=== PATIENT | female | born 1940 | race African-American/Black ===

== ENCOUNTER 2017-10-09 15:52 | Emergency (ER) | payer MEDICARE, MEDICAID ==
[2017-10-09 17:29] LABS: Bilirubin Negative (Negative); Blood, Urine Negative (Negative); Glucose, Urine (Dipstick) Negative (Negative); Ketone, Urine Negative (Negative); Nitrite Negative (Negative); Protein, Urine (Dipstick) Negative (Neg-Trace)
[2017-10-09] MEDS ORDERED: traMADol HCl 50 MG TAB ONE (18:25)
== END 2017-10-09 18:29 | disposition home or self-care (01) ==
LOC: EEVIPCON 15:52 → ERS 15:52
DX: M54.5 Low back pain (principal); I25.10 Atherosclerotic heart disease of native coronary artery without angina pectoris; E78.5 Hyperlipidemia, unspecified; I10 Essential (primary) hypertension; I49.9 Cardiac arrhythmia, unspecified; F32.9 Major depressive disorder, single episode, unspecified; F17.220 Nicotine dependence, chewing tobacco, uncomplicated; Z79.899 Other long term (current) drug therapy; Z79.82 Long term (current) use of aspirin
CPT/HCPCS: 81003; 99283

== ENCOUNTER 2018-02-26 12:00 | Outpatient (CLI) | payer MEDICARE, MEDICAID | END 2018-02-26 12:01 | disposition home or self-care (01) | LOC: BICULT 12:00 | PROVIDERS: ATTEND Urology | DX: N20.0 Calculus of kidney (principal); N28.1 Cyst of kidney, acquired | CPT/HCPCS: 74018; 76770 ==

== ENCOUNTER 2018-05-10 11:36 | Inpatient (IN) | payer MEDICARE, MEDICAID ==
[2018-05-10 12:38] LABS: #Basophils 0.1 thou/uL (0.0-0.2); #Eosinphils 0.1 thou/uL (0.0-0.7); #Lymphocytes 1.9 thou/uL (1.20-3.40); #Monocytes 0.4 thou/uL (0.11-0.59); #Neutrophils 2.1 thou/uL (1.40-6.50); %Basophils 1.1 % (0.0-1.0); %Eosinophils 2.1 % (0.0-10.0); %Monocytes 8.7 % (0.0-10.0); %Neutrophils 46.1 % (42.0-75.0); Hemoglobin 12.3 g/dL (12.0-16.0); Mean Corpuscular HGB CONC 33.4 g/dL (32.0-36.0); Mean Corpuscular Hemoglobin 30.4 pg (27.0-31.0); Mean Platelet Volume 7.6 fL (7.4-10.4); Platelet Count 220 thou/uL (130-400); RBC Distribution Width 12.1 % (11.5-14.5); Red Blood Cell (RBC) Count 4.04 mill/uL (4.20-5.40); White Blood Cell (WBC) Count 4.6 thou/uL (4.8-10.8)
[2018-05-10 12:56] LABS: ALT (SGPT) 16 U/L (8-55); AST (SGOT) 21 U/L (5-34); Albumin 4.2 g/dL (3.4-4.8); Alkaline Phosphatase 56 U/L (40-150); Anion Gap 13 mmol/L (10-20); BUN (Urea Nitrogen) 17 mg/dL (9.8-20.1); Bilirubin, Total 0.6 mg/dL (0.2-1.2); CK (CPK) 164 U/L (29-168); Calc. Creatinine Clearance 0 mL/min (70-130); Calcium 9.2 mg/dL (7.8-10.44); Carbon Dioxide 21 mmol/L (23-31); Chloride 109 mmol/L (98-107); Estimated GFR-MDRD 63; Globulin 3.1 g/dL (2.4-3.5); Glucose 119 mg/dL (83-110); Potassium 4.1 mmol/L (3.5-5.1); Protein, Total 7.3 g/dL (6.0-8.3); Sodium 139 mmol/L (136-145)
--- NOTE | 2018-05-10 12:56 | RAD ---
PORTABLE CHEST: History: Weakness. Comparison: 09-12-16 FINDINGS: Defibrillator head obscures the left chest. The heart is upper normal size. Vascular markings are mil dly prominent. Evidence of atelectasis in the lung bases. I cannot exclude small effusions. The upper lung gamboa are clear. POS: H
[2018-05-10 13:01] LABS: CKMB 1.7 ng/mL (0-6.6); Troponin I Less than 0.010 ng/mL (< 0.028)
[2018-05-10] MEDS ORDERED: Atropine Sulfate 1 mg/10 ml Syringe ONE (14:40)
[2018-05-10 15:11] LABS: Bilirubin Negative (Negative); Blood, Urine Negative (Negative); Clarity CLEAR (Clear); Glucose, Urine (Dipstick) Negative (Negative); Leukocyte Moderate (Negative); Nitrite Negative (Negative); Protein, Urine (Dipstick) Negative (Neg-Trace); pH, Urine 5.5 (5.0-9.0)
[2018-05-10 15:13] LABS: Bacteria/HPF None Seen HPF (None Seen); Hyaline Casts/LPF 4-6 HYALINE CAST LPF (0-3 Hyaline); Pathc Cast-AUWi Flag 0.43 (0-2.49); RBC/HPF 0-3 HPF (0-3); Squamous Epithelial 0-3 HPF (0-3)
[2018-05-10 15:57] LABS: Troponin I 0.012 ng/mL (< 0.028)
--- NOTE | 2018-05-10 17:15 | HP ---
PRIMARY CARE PROVIDER: Dr. Mari Ornelas. CHIEF COMPLAINT: Referred to [facility] Service by [place] [facility] for weakne ss and bradycardia. HISTORY OF PRESENT ILLNESS: Patient complains of woozy spells, weakness, sleeping a lot, cramps in h er legs at night, has some nausea at the top of her stomach. No emesis. No abdominal pain. PAST MEDICAL HISTORY: Pertinent for chronic sinus bradycardia, coronary artery disease post-PCI, hyp ertension, elevated cholesterol. CURRENT MEDICATIONS: Reviewed. Lisinopril 20 mg twice a day, amlodipine 10 mg a day, Zetia 10 mg a day, amitriptyline 25 mg a day, aspirin 81 mg a day, Lipitor 80 mg a day. ALLERGIES: To MORPHINE, it "shuts my body down." PAST SURGICAL HISTORY: Tubal ligation. FAMILY HISTORY: Sister of an [place]. She has another sister with coronary artery disease, history of stroke, diabetes. She has an aunt and a sister with diabetes. SOCIAL HISTORY: Single. FULL CODE status. Son, Roberto Glover is next of kin. Nonsmoker, nonalcoho l drinker. REVIEW OF SYSTEMS: General: No headaches, fainting. She has wooziness with her weak spells. Eyes: Blurred vision at times. No double vision, flashing lights. ENT: No ear pain or drainage. No na anibal bleeding. No trouble swallowing. Cardiac: No chest pain, orthopnea or paroxysmal nocturnal dys pnea. Respiratory: No cough, wheezing or asthma. Gastrointestinal: See present illness. Genitour inary: No hematuria, dysuria. Musculoskeletal: No pain or swelling in arms or legs. Neurologic: No strokes, seizures or focal weakness. Psychiatric: No anxiety, depression. Skin: No bruises, bl eeding or rash. Heme/Lymph: No tender or swollen lymph nodes in axilla, inguinal or cervical area. PHYSICAL EXAMINATION: GENERAL: She is alert, oriented, cooperative lady. VITAL SIGNS: Blood pressure 179/76, pulse 67, respirations 16, temperature 98.7, O2 sat 96% on room air. HEENT: Reveals bilateral arcus. Pupils equal, round, and reactive. Extraocular movements intact. Sclerae white. Tympanic membranes clear. Nose is clear. Oral mucous membranes are wet with no lesi ons. NECK: No jugular venous distention, adenopathy or thyromegaly. CHEST: Clear to auscultation and percussion. HEART: Regular rate and rhythm. First and second heart sounds are clear. There are no appreciated murmurs or gallops. ABDOMEN: Soft, bowel sounds are normal. There is no hepatosplenomegaly, no mass, no rebound, no bru its. EXTREMITIES: Reveal no cyanosis, clubbing or edema. PULSES: Carotid, radial, femoral, and dorsalis pedis pulses intact and symmetric. SKIN: Warm and dry without bruises or rash. HEME/LYMPH: No tender or swollen lymph nodes in axilla, inguinal or cervical areas. NEUROLOGICAL: Cranial nerves II through XII are intact. Deep tendon reflexes symmetric. Moves all extremities. Toes downgoing. X-RAY FINDINGS: Chest x-ray shows no cardiomegaly, CHF, infiltrate, reviewed by me. EKG showed sinu s bradycardia, left axis deviation, diffuse T-wave abnormality, reviewed by me. LABORATORY DATA: Hemoglobin 12.3, white count 4.6, platelet count 220,000. Comprehensive metabolic profile is normal except for blood sugar of 119, CO2 of 21, chloride of 109. Cardiac enzymes, normal x2. BNP 85.6. ADMITTING DIAGNOSES: 1. Generalized weakness. 2. Sinus bradycardia, chronic, has been worked up extensively by [facility]. 3. Epigastric discomfort, nausea. 4. Hypertension. 5. Coronary artery disease, post percutaneous coronary intervention. PLAN: 1. Monitor. 2. Serial enzymes. If enzymes are negative, it is noted that less than 2 years ago she had normal s tress test. We will obtain cortisol level, supine and erect blood pressures, thyroid profile, hemogl obin A1c, reevaluate when data available.
[2018-05-10] MEDS ORDERED: Sodium Chloride 0.9% 1,000 ML IV SCH (17:20)
[2018-05-10] MEDS ORDERED: Zolpidem Tartrate 5 MG TAB PO PRN (17:41)
[2018-05-10] MEDS ORDERED: Ondansetron ODT 4 MG TAB PO PRN (17:41)
[2018-05-10 18:33] LABS: Hemoglobin A1c 6.5 % (4.0-6.0)
[2018-05-10 18:55] LABS: Troponin I 0.014 ng/mL (< 0.028)
[2018-05-10 19:10] LABS: Free Thyroxine Index 2.12 (1.4-3.1); T4 8.1 ug/dL (4.87-11.72); Thyroid Stimulating Hormone 0.6708 uIU/mL (0.35-4.94)
[2018-05-10] MEDS ORDERED: Prevnar 13-Val Conj/PF 0.5 ML SYRINGE IM ONE (21:00)
[2018-05-11 05:28] LABS: #Basophils 0.1 thou/uL (0.0-0.2); #Eosinphils 0.2 thou/uL (0.0-0.7); #Lymphocytes 1.7 thou/uL (1.20-3.40); #Monocytes 0.5 thou/uL (0.11-0.59); #Neutrophils 2.9 thou/uL (1.40-6.50); %Eosinophils 2.9 % (0.0-10.0); %Lymphocytes 32.2 % (21.0-51.0); %Monocytes 9.5 % (0.0-10.0); %Neutrophils 54.5 % (42.0-75.0); Hemoglobin 12.1 g/dL (12.0-16.0); Mean Corpuscular HGB CONC 32.5 g/dL (32.0-36.0); Mean Corpuscular Hemoglobin 29.4 pg (27.0-31.0); Mean Corpuscular Volume 90.3 fL (78.0-98.0); Mean Platelet Volume 7.5 fL (7.4-10.4); Platelet Count 239 thou/uL (130-400); White Blood Cell (WBC) Count 5.4 thou/uL (4.8-10.8)
[2018-05-11 06:03] LABS: Anion Gap 12 mmol/L (10-20); BUN (Urea Nitrogen) 16 mg/dL (9.8-20.1); Calc. Creatinine Clearance 58 mL/min (70-130); Calcium 9.2 mg/dL (7.8-10.44); Carbon Dioxide 24 mmol/L (23-31); Chloride 109 mmol/L (98-107); Estimated GFR-MDRD 72; Glucose 105 mg/dL (83-110); Potassium 3.8 mmol/L (3.5-5.1); Sodium 141 mmol/L (136-145)
--- NOTE | 2018-05-11 14:13 | PDOC.PN ---
- Subjective Encounter Start Date: 05/11/18 Encounter Start Time: 14:11 Subjective: generalized weakness - Objective Resuscitation Status: Resuscitation Status FULL:Full Resuscitation MAR Reviewed: Yes Vital Signs & Weight: Vital Signs (12 hours) Temp Pulse Resp BP BP Pulse Ox 05/11/18 11:10 98.6 F 41 L 20 169/74 H 99 05/11/18 09:39 98.3 F 41 L 20 05/11/18 07:55 98.3 F 41 L 20 115/62 95 05/11/18 03:35 35 L 18 122/60 I&O: 05/10/18 05/11/18 05/12/18 06:59 06:59 06:59 Intake Total 150 Balance 150 Result Diagrams: 05/11/18 05:03 05/11/18 05:03 Phys Exam - Physical Examination Neck: no JVD Respiratory: clear to auscultation bilateral Cardiovascular: RRR bradycardia Gastrointestinal: soft, positive bowel sounds Musculoskeletal: no edema Dx/Plan (1) Weakness Code(s): R53.1 - WEAKNESS Status: Acute (2) CAD (coronary artery disease) Code(s): I25.10 - ATHSCL HEART DISEASE OF [place] CORONARY ARTERY W/O ANG PCTRS Status: Acute Qualifiers: Coronary Disease-Associated Artery/Lesion type: [place] artery [place] vs. transplanted heart: [place] heart Associated angina: without angina Qualified Code(s): I25.10 - Atherosclerotic heart disease of [place] coronary artery without angina pectoris (3) HTN (hypertension) Code(s): I10 - ESSENTIAL (PRIMARY) HYPERTENSION Status: Chronic Qualifiers: Hypertension type: essential hypertension Qualified Code(s): I10 - Essential (primary) hypertension (4) Dyslipidemia Code(s): E78.5 - HYPERLIPIDEMIA, UNSPECIFIED Status: Chronic (5) Chest discomfort Code(s): R07.89 - OTHER CHEST PAIN Status: Acute - Plan stress test cancelled by cardiology -: acosta FOR ANEMIA, HYPOTHYROID, HYPOADRENAL , ORTHSTATIC HYPOTENSION ALL -: wnl -: CArdiology consult * .
--- NOTE | 2018-05-11 15:57 | NM ---
NUCLEAR MEDICINE MYOCARDIAL PERFUSION: Date: 05/11/18 CLINICAL HISTORY: 78-year-old female with chest pain and weakness. The stress imaging portion of the exam was cancelled by the ordering physician due to bradycardia. Re st imaging performed. RADIOPHARMACEUTICAL: 9.3 mCi technetium-99m sestamibi IV. FINDINGS: Rest imaging does not reveal a significant perfusion defect of the left ventricular siddiqi. There is m ild prominence in volume of the left ventricle. Gated imaging not performed. IMPRESSION: 1. No significant perfusion defect of the left ventricular siddiqi by rest imaging. 2. There is mild prominence in size of the left ventricle. Consider correlation with echocardiogram for further dynamic evaluation. POS: MEGAN
--- NOTE | 2018-05-11 17:24 | PDOC.EVN ---
Event Note - Event Note Event Note: cardiology rec pacemaker, change to full admit
--- NOTE | 2018-05-11 19:05 | CON ---
DATE OF CONSULTATION: 05/11/2018 PRIMARY DIRECTOR OF INCOME TAX: Dr. Kosta Guallpa. REASON FOR CONSULTATION: Bradycardia. HISTORY OF PRESENT ILLNESS: Mrs. Portillo is a very pleasant 78-year-old - [place] female followed by Dr. Guallpa for many years now, who comes to the hospital for not feeling well. She is noted that for the last week or two she has noticed episodes of feeling lightheaded, feeling weak all the time, feeling like she needs to take a nap and she is sleeping much more than before. She decided to come in for evaluation of this to her primary care doctor, who saw her and recommended she come into the hospital for further care. Here, she had blood work and eventually was admitted on the division plant engineer, which found that she had a sinus bradycardia, heart rates as low as 32 while she was awake, so Cardiology is being consulted for this. On my evaluation, Mrs. Portillo feels much better. Her heart rate currently in the 60s. She is sitting up, talking with a friend. She tells me that she thinks most of her problems are related to medication. She had started by PCP about 1-2 weeks ago, this correlated with the timing of her feeling this way, she decided to take herself off of this on Thursday and has not had it since then and she states that she is feeling much better since then. PAST MEDICAL HISTORY: 1. Sinus bradycardia, which is chronic on her and has been worked up in the past. 2. Coronary artery disease. 3. PCI in the distant past about 10 years ago. 4. Hypertension. 5. Hyperlipidemia. OUTPATIENT MEDICATIONS: 1. Lisinopril 20 mg b.i.d. 2. Amlodipine 10 mg. 3. Zetia 10 mg a day. 4. Amitriptyline 25 mg a day. 5. Aspirin 81 a day. 6. Lipitor 80 mg a day. ALLERGIES: MORPHINE. PAST SURGICAL HISTORY: Tubal ligation. FAMILY HISTORY: Sister of an [place], has another sister with coronary disease , stroke, and diabetes. SOCIAL HISTORY: No alcohol, tobacco, or drugs. REVIEW OF SYSTEMS: A 12-point review of systems is done and it is all negative except as stated in the history of present illness. PHYSICAL EXAMINATION: VITAL SIGNS: Temperature 98.1, pulse anywhere from 32-50. Respiratory rate 12 , satting 95% on room air, blood pressure 166/71. GENERAL: Awake, alert, oriented x3, in no distress. HEENT: Normocephalic, atraumatic. NECK: Supple. LUNGS: Clear. CARDIOVASCULAR: S1, S2. Heart rate in the 40s. No murmurs or rubs. ABDOMEN: Soft, positive bowel sounds. EXTREMITIES: No edema. SKIN: Warm and dry. LABORATORY WORK: Reviewed. White count 4.6, hemoglobin 12.3, hematocrit 36, platelet count 220. Chemistry was unremarkable except for chloride of 109, otherwise unremarkable. Hemoglobin A1c of 6.5. Troponin I is negative x3. Free T4-T3 uptake and TSH are all normal. Cortisol level was normal. UA with moderate leukocyte esterase, 4-6 white cells, otherwise unremarkable. Chest x-ray showed clear lung gamboa, because exclude small effusions to atelectasis in the lung bases. Resting nuclear cardiac scan showed no significant perfusion defect and resting images, mild prominence in size of the left ventricle, but normal function. ASSESSMENT AND PLAN: 1. Sinus bradycardia: Likely symptomatic bradycardia. She has had episodes of junctional rhythm as well as just sinus bradycardia in the low 30s, down to 32. Her symptoms could certainly be related to this bradycardia, however, she is not feeling it while she is here at the time. She has felt better since she stopped that medication. Currently, I think she has an indication for pacemaker placement as her symptoms may correlate with bradycardia and she has significant low heart rates. She would like to have Dr. Guallpa's opinion on this as he has known her for many years now, I think this is appropriate. 2. Further recommendations per her primary bevel mill operator, Dr. Guallpa will see her in the morning. [facility], [place]
[2018-05-11] MEDS ORDERED: Non-Formulary Item 1 EACH (Atorvastatin Calcium [Atorvastatin Calcium] 80 MG) PO SCH (21:00)
[2018-05-11] MEDS ORDERED: Sodium Chloride 0.9% 10 ML ONE (21:48)
[2018-05-11] MEDS: Ezetimibe 10 MG TAB PO SCH (22:21)
[2018-05-11] MEDS: Atorvastatin Calcium 40 MG TAB PO SCH (22:21)
[2018-05-11] MEDS: Fish Oil 1,000 MG CAP PO SCH (22:21)
[2018-05-12] MEDS ORDERED: Sodium Chloride 0.9% 10 ML ONE (08:20)
[2018-05-12] MEDS: Lisinopril 20 MG TAB PO SCH (09:33)
[2018-05-12] MEDS: Fish Oil 1,000 MG CAP PO SCH ×2 (09:34→22:20)
[2018-05-12] MEDS: Amitriptyline HCl 25 MG TAB PO SCH (09:34)
[2018-05-12] MEDS: Amlodipine 10 MG TAB PO SCH (09:34)
--- NOTE | 2018-05-12 10:02 | PDOC.PN ---
- Subjective Encounter Start Date: 05/12/18 Encounter Start Time: 10:01 Subjective: just weak - Objective MAR Reviewed: Yes Vital Signs & Weight: Vital Signs (12 hours) Temp Pulse Resp BP BP BP BP 05/12/18 09:34 51 L 159/67 H 05/12/18 09:33 159/67 H 05/12/18 08:00 97.6 F 51 L 16 159/67 H 174/82 H 05/12/18 04:04 56 L 108/65 05/12/18 04:02 42 L 124/65 05/12/18 03:58 98.5 F 36 L 16 05/11/18 22:23 BP Pulse Ox 05/12/18 09:34 05/12/18 09:33 05/12/18 08:00 05/12/18 04:04 05/12/18 04:02 05/12/18 03:58 138/65 92 L 05/11/18 22:23 93 L Weight Weight 154 lb 14.4 oz I&O: 05/11/18 05/12/18 05/13/18 06:59 06:59 06:59 Intake Total 1030 Output Total 1000 Balance 30 Result Diagrams: 05/11/18 05:03 05/11/18 05:03 Phys Exam - Physical Examination Neck: no JVD Respiratory: clear to auscultation bilateral Cardiovascular: RRR slow Gastrointestinal: soft, positive bowel sounds Musculoskeletal: no edema Dx/Plan (1) Weakness Code(s): R53.1 - WEAKNESS Status: Acute (2) CAD (coronary artery disease) Code(s): I25.10 - ATHSCL HEART DISEASE OF [place] CORONARY ARTERY W/O ANG PCTRS Status: Acute Qualifiers: Coronary Disease-Associated Artery/Lesion type: [place] artery [place] vs. transplanted heart: [place] heart Associated angina: without angina Qualified Code(s): I25.10 - Atherosclerotic heart disease of [place] coronary artery without angina pectoris (3) HTN (hypertension) Code(s): I10 - ESSENTIAL (PRIMARY) HYPERTENSION Status: Chronic Qualifiers: Hypertension type: essential hypertension Qualified Code(s): I10 - Essential (primary) hypertension (4) Dyslipidemia Code(s): E78.5 - HYPERLIPIDEMIA, UNSPECIFIED Status: Chronic (5) Chest discomfort Code(s): R07.89 - OTHER CHEST PAIN Status: Acute - Plan pacemaker today * .
[2018-05-12] MEDS ORDERED: Iopamidol 370 76% 50 ML VIAL FS ONE (10:06)
[2018-05-12 12:10] LABS: #Basophils 0.1 thou/uL (0.0-0.2); #Eosinphils 0.1 thou/uL (0.0-0.7); #Lymphocytes 1.8 thou/uL (1.20-3.40); #Monocytes 0.3 thou/uL (0.11-0.59); %Eosinophils 2.2 % (0.0-10.0); %Lymphocytes 42.1 % (21.0-51.0); %Monocytes 7.5 % (0.0-10.0); %Neutrophils 46.3 % (42.0-75.0); Hemoglobin 11.9 g/dL (12.0-16.0); Mean Corpuscular HGB CONC 32.7 g/dL (32.0-36.0); Mean Corpuscular Hemoglobin 29.5 pg (27.0-31.0); Mean Corpuscular Volume 90.3 fL (78.0-98.0); Mean Platelet Volume 7.6 fL (7.4-10.4); Platelet Count 232 thou/uL (130-400); Red Blood Cell (RBC) Count 4.02 mill/uL (4.20-5.40); White Blood Cell (WBC) Count 4.3 thou/uL (4.8-10.8)
[2018-05-12 12:23] LABS: INR-International Normal Ratio 1.1; PTT 29.6 SEC (22.9-36.1); Prothrombin Time 14.5 SEC (12.0-14.7)
[2018-05-12 12:24] LABS: Anion Gap 13 mmol/L (10-20); BUN (Urea Nitrogen) 15 mg/dL (9.8-20.1); Calc. Creatinine Clearance 62 mL/min (70-130); Carbon Dioxide 23 mmol/L (23-31); Chloride 107 mmol/L (98-107); Estimated GFR-MDRD 80; Glucose 104 mg/dL (83-110); Potassium 3.5 mmol/L (3.5-5.1); Sodium 139 mmol/L (136-145)
[2018-05-12] MEDS ORDERED: CEFAZOLIN/Water 2 GM/20 ML SYRINGE ONE (15:41)
--- NOTE | 2018-05-12 15:42 | EKG ---
Test Reason : PREOP Blood Pressure : / mmHG Vent. Rate : 040 BPM Atrial Rate : 040 BPM P-R Int : 172 ms QRS Dur : 094 ms QT Int : 534 ms P-R-T Axes : 062 -39 088 degrees QTc Int : 435 ms Marked sinus bradycardia with occasional Premature ventricular complexes Left axis deviation T wave abnormality, consider anterolateral ischemia Abnormal ECG When compared with ECG of 10-MAY-2018 12:10, (Unconfirmed) Premature ventricular complexes are now Present T wave inversion now evident in Anterior leads Confirmed by VIVIAN BLANKENSHIP, DR. Valdez ([id number]) on 05/12/2018 3:42:21 PM Referred By: [facility] Confirmed By:DR. Courtney PARK MD
[2018-05-12] MEDS ORDERED: Fentanyl 100 MCG/2 ML VIAL ONE (15:48)
[2018-05-12] MEDS ORDERED: Midazolam HCl 2 mg/2 ml Vial ONE (15:48)
[2018-05-12] MEDS ORDERED: Lidocaine 1% (PF) 30 ML VIAL ONE (16:24)
[2018-05-12] MEDS: Atorvastatin Calcium 40 MG TAB PO SCH (22:20)
[2018-05-12] MEDS: Ezetimibe 10 MG TAB PO SCH (22:20)
[2018-05-12] MEDS: Acetaminophen 325 MG TAB PO PRN (22:21)
--- NOTE | 2018-05-12 22:36 | CON ---
DATE OF CONSULTATION: 05/12/2018 REFERRING PHYSICIAN: Kosta Guallpa M.D. REASON FOR CONSULTATION: Sick sinus syndrome and symptomatic bradycardia. HISTORY OF PRESENT ILLNESS: Ms. Portillo is a very pleasant 78-year-old -[place] woman known a nd followed by Dr. Guallpa for many years. She came to [facility] on 05/10/2018 with a chi ef complaint of symptomatic bradycardia. She is noticed over the past week or two that she is having episodes of lightheadedness, dizziness, weakness, and decreased energy levels with taking naps more frequently than before. She is persistently sleepy. She went to her primary care doctor for evaluat ion who saw her and recommended she go to the hospital for further evaluation. Upon admission, she h as blood work done and was admitted to telemetry when she was found to be in sinus bradycardia with r ates as low as 32 beats per minute with correlating worsening of symptoms. Her bradycardia is chroni c and has been worked up in the past. It has not been related to medication management and she has b een largely asymptomatic up until recently. Currently, she is feeling well. She denies any heart racing, palpitations, chest pain, pressure, syn cope or stroke-like symptoms. She does have occasional dizziness or near syncope on occasion. REVIEW OF SYSTEMS: Twelve-point review of systems was conducted and is negative except that listed a jermaine in the HPI. PAST MEDICAL HISTORY: 1. Sinus bradycardia, chronic and previously asymptomatic. 2. Coronary artery disease with PCI in the remote past approximately 10 years ago. 3. Hypertension. 4. Hyperlipidemia. ALLERGIES: MORPHINE. MEDICATIONS: Include lisinopril 20 mg b.i.d., amlodipine 10 mg daily, Zetia 10 mg daily, amitriptyli ne 25 mg daily, aspirin 81 mg daily, and Lipitor 80 mg daily. FAMILY HISTORY: Sister from an [place]. Second sister with coronary artery disease, stroke, and diabetes. SOCIAL HISTORY: Negative for alcohol, tobacco, or illicit drug use. PHYSICAL EXAMINATION: VITAL SIGNS: Most recent vital signs include 97.6, heart rate 51, blood pressure 159/67, respiration s are 16, and oxygen is 97% on room air. GENERAL: This is a well-appearing and well-nourished woman. She is alert and oriented. Speech is c lear and affect is appropriate. She is normocephalic, atraumatic. Sclerae are anicteric and EOMs ar e intact. NECK: Supple without jugular venous distention. Her thyroid is nonpalpable. CHEST: Clear to auscultation bilaterally without wheezes, crackles, or rhonchi. Respirations are ev en and unlabored with good bilateral excursion. CARDIOVASCULAR: Heart rate is regularly regular but slow. PMI is nondisplaced. There are no obviou s murmurs or rubs appreciated. Her extremities are warm and dry to touch without clubbing, cyanosis, or edema. ABDOMEN: Soft, nontender without palpable masses and hepatojugular reflex is negative. NEUROLOGIC: Grossly intact and nonfocal. Her gait was not assessed. DATABASE: Review of EKG and telemetry tracing reveals largely sinus bradycardia and occasional junct ional escape beat with heart rates as low as 32 beats per minute. LABORATORY DATA: WBC 4.3, hemoglobin 11.9, hematocrit 36.3, platelet count is 232, potassium 3.5, cr eatinine 0.84, free T4 2.12, thyroxine 8.1, T3 is 26. TSH is 0.6708, cortisol is 9.5. IMPRESSION: 1. Sick sinus syndrome, symptomatic bradycardia. 2. Junctional escape beats in the setting of extreme bradycardia. RECOMMENDATIONS: Given her sinus bradycardia is now progressed to severe bradycardia which she has a correlation of symptoms of dizziness, lightheadedness, and low energy levels. She does qualify for implantation of the pacemaker. We discussed pacemaker implantation with her including the risks, maria teresa efits, and alternatives. Risks include pain, swelling, bruising, infection at the insertion site, da mage to surrounding tissues, organs, or blood vessels including damage to the lung and damage to the heart requiring chest tube insertion or possibly invasive cardiovascular surgery. She voices underst anding and agrees with the plan of care to move forward with dual chamber pacemaker. This will be do ne at the earliest convenience. All questions were answered. Thank you for allowing us to participate in the care of this patient. This is dictated as scribe for Dr. Jamin Carmona.
[2018-05-13] MEDS ORDERED: Acetaminophen/Codeine 30-300mg Tablet PO PRN (07:36)
--- NOTE | 2018-05-13 08:32 | RAD ---
FRONTAL VIEW CHEST: INDICATION: Heart disease, pacemaker. FINDINGS: There is prominence of the cardiac silhouette. A left subclavian transvenous cardiac pacing device i s present. There are extrinsic artifacts overlying the leads which limit visualization. Elevation o f the right hemidiaphragm with adjacent basilar density is seen. There is no pneumothorax. No new c onsolidation. Interval improved edema from prior exam. IMPRESSION: 1. Mild patchy right basilar opacity indicating atelectasis. 2. Improving edema suggested. POS: MEGAN
[2018-05-13] MEDS ORDERED: Sodium Chloride 0.9% 10 ML ONE (09:07)
[2018-05-13] MEDS: Acetaminophen 325 MG TAB PO PRN (09:13)
[2018-05-13] MEDS: Lisinopril 20 MG TAB PO SCH (09:14)
[2018-05-13] MEDS: Amitriptyline HCl 25 MG TAB PO SCH (09:15)
[2018-05-13] MEDS: Amlodipine 10 MG TAB PO SCH (09:15)
[2018-05-13] MEDS: Fish Oil 1,000 MG CAP PO SCH ×2 (09:16→21:26)
[2018-05-13] MEDS: Cephalexin 250 MG CAP PO SCH ×3 (09:16→21:26)
--- NOTE | 2018-05-13 10:25 | PDOC.PN ---
- Subjective Encounter Start Date: 05/13/18 Encounter Start Time: 10:23 Subjective: feels fine, no sob, pain - Objective Vital Signs & Weight: Vital Signs (12 hours) Temp Pulse Resp BP BP Pulse Ox 05/13/18 09:15 60 170/81 H 05/13/18 09:14 170/81 H 05/13/18 08:00 97.4 F L 60 18 170/80 H 96 05/13/18 04:00 98.6 F 60 18 174/83 H 92 L Weight Weight 155 lb 11.2 oz I&O: 05/12/18 05/13/18 05/14/18 06:59 06:59 06:59 Intake Total 1030 490 Output Total 1000 550 Balance 30 -60 Result Diagrams: 05/12/18 11:56 05/12/18 11:56 Phys Exam - Physical Examination Neck: no JVD Respiratory: clear to auscultation bilateral Cardiovascular: RRR, no significant murmur Gastrointestinal: soft, non-tender, positive bowel sounds Musculoskeletal: no edema Dx/Plan (1) Weakness Code(s): R53.1 - WEAKNESS Status: Acute (2) CAD (coronary artery disease) Code(s): I25.10 - ATHSCL HEART DISEASE OF [place] CORONARY ARTERY W/O ANG PCTRS Status: Acute Qualifiers: Coronary Disease-Associated Artery/Lesion type: [place] artery [place] vs. transplanted heart: [place] heart Associated angina: without angina Qualified Code(s): I25.10 - Atherosclerotic heart disease of [place] coronary artery without angina pectoris (3) HTN (hypertension) Code(s): I10 - ESSENTIAL (PRIMARY) HYPERTENSION Status: Chronic Qualifiers: Hypertension type: essential hypertension Qualified Code(s): I10 - Essential (primary) hypertension (4) Dyslipidemia Code(s): E78.5 - HYPERLIPIDEMIA, UNSPECIFIED Status: Chronic (5) Chest discomfort Code(s): R07.89 - OTHER CHEST PAIN Status: Acute (6) Status post placement of cardiac pacemaker Code(s): Z95.0 - PRESENCE OF CARDIAC PACEMAKER Status: Acute - Plan BP up post pacer, on amlodipine, CHEMA, add hydralazine * .
[2018-05-13] MEDS ORDERED: hydrALAZINE 25 MG TAB PO SCH (10:45)
--- NOTE | 2018-05-13 10:55 | PDOC.CTH ---
<Staci Osullivan - Last Filed: 05/13/18 12:05> Cardiology Progress Note - Subjective EP progress note: Patient seen and evaluated. No new cardiac concerns or complaints overnight. Report some tenderness and mild-moderate pain at implant site. Otherwise, feeling well without issue. Denies fever, chills, heart racing, palpitations, chest pain/pressure, dizziness , passing out, or stroke like symptoms. - Objective Vital Signs Temp Pulse Resp BP BP Pulse Ox 05/13/18 09:15 60 170/81 H 05/13/18 09:14 170/81 H 05/13/18 08:00 97.4 F L 60 18 170/80 H 96 05/13/18 04:00 98.6 F 60 18 174/83 H 92 L Weight 155 lb 11.2 oz 05/12/18 05/13/18 05/14/18 06:59 06:59 06:59 Intake Total 1030 490 Output Total 1000 550 Balance 30 -60 - Physical Examination General/Neuro: alert & oriented x3, NAD Neck: carotid US brisk, no JVD present Lungs: CTA, unlabored respirations Heart: PMI normal, RRR Abdomen: no HSM, NT/ND, soft - Telemetry Telemetry Rhythm: AP, VS. NSR - Labs Result Diagrams: 05/12/18 11:56 05/12/18 11:56 Troponin/CKMB CK-MB (CK-2) 1.7 ng/mL (0-6.6) 05/10/18 12:12 Troponin I 0.014 ng/mL (< 0.028) 05/10/18 18:17 - Assessment/Plan 1. Sick sinus syndrome: symptomatic severe bradycardia s/p dual chamber PPM implants on 05/12/18. Site is stable today without signs of complication. CXR this AM- no pneumothorax. Lead positioning is difficult to determine with the overlying tele monitor wires but both wires seem to have less slack than immediately following implant. Device check this AM is stable but R wave sensing has dropped some, currently 1.8 mV. Thresholds remain stable. By telemetry she mostly is A paced, V sensed. Continue post implant Keflex as prescribed x 7 days. Will keep NPO after MN and interrogate device in am. Possible lead revision tomorrow AM if lead function is abnormal. Wound check at [facility] clinic in 7-14 days then will be followed by Dr. Guallpa <Jamin Carmona - Last Filed: 05/13/18 14:02> Cardiology Progress Note - Objective Vital Signs Temp Pulse Resp BP BP BP Pulse Ox 05/13/18 13:00 98.0 F 61 16 139/72 05/13/18 12:58 60 139/72 05/13/18 09:15 60 170/81 H 05/13/18 09:14 170/81 H 05/13/18 08:00 97.4 F L 60 18 170/80 H 96 05/13/18 04:00 98.6 F 60 18 174/83 H 92 L Admit Weight 157 lb 1 oz Weight 155 lb 11.2 oz 05/12/18 05/13/18 05/14/18 06:59 06:59 06:59 Intake Total 1030 490 Output Total 1000 550 Balance 30 -60 - Labs Result Diagrams: 05/12/18 11:56 05/12/18 11:56 Troponin/CKMB CK-MB (CK-2) 1.7 ng/mL (0-6.6) 05/10/18 12:12 Troponin I 0.014 ng/mL (< 0.028) 05/10/18 18:17 Attending Addendum - Attending Addendum Date/Time: 05/13/18 1402 I personally evaluated the patient and discussed the management with MS Osullivan. I agree with the History, Examination, Assessment and Plan documented above with any addition or exceptions noted below.
[2018-05-13 13:36] VITALS: BMI 24.3
[2018-05-13] MEDS: Acetaminophen/Codeine 30-300mg Tablet PO PRN ×2 (13:54→21:35)
[2018-05-13] MEDS: Ezetimibe 10 MG TAB PO SCH (21:26)
[2018-05-13] MEDS: hydrALAZINE 25 MG TAB PO SCH (21:26)
[2018-05-13] MEDS: Atorvastatin Calcium 40 MG TAB PO SCH (21:26)
[2018-05-14] MEDS: hydrALAZINE 25 MG TAB PO SCH (09:01)
[2018-05-14] MEDS: Amitriptyline HCl 25 MG TAB PO SCH (09:01)
[2018-05-14] MEDS: Lisinopril 20 MG TAB PO SCH (09:01)
[2018-05-14] MEDS: Cephalexin 250 MG CAP PO SCH ×2 (09:01→14:40)
[2018-05-14] MEDS: Fish Oil 1,000 MG CAP PO SCH (09:01)
[2018-05-14] MEDS: Amlodipine 10 MG TAB PO SCH (09:01)
[2018-05-14 12:04] VITALS: BP 126/64; TEMP 99
--- NOTE | 2018-05-14 22:59 | DIS ---
DATE OF ADMISSION: 05/11/2018 DATE OF DISCHARGE: 05/14/2018 DISCHARGE DIAGNOSES: 1. Sick sinus syndrome. 2. Coronary artery disease. 3. Hypertension. 4. Dyslipidemia. 5. Chest discomfort. HOSPITAL COURSE: The patient is a very pleasant 78-year-old female who initially presented to the [facility] with complaints of dizziness, weakness, and increased sleepiness. The patient at this time wa s noted to have bradycardia. The patient was found to have sinus bradycardia with rates below 32 tasha ts per minute, which was with correlation worsening of her symptoms. Patient was not on any certain medication that could cause her to have significant amount of bradycardia. The patient at this time was seen by EP and underwent a pacemaker placement on 05/12/2018. The patient postoperatively did no t have any abnormalities or any issues. The patient will be discharged home and she will follow up w [facility] Cardiology and EP as outpatient. She has been prescribed Keflex for 7 days. PHYSICAL EXAMINATION: VITAL SIGNS: Temperature of 99.0, 60, 18, 99% room air, 126/64. GENERAL: She is awake, alert, oriented x3, does not appear in distress. CARDIOVASCULAR: S1, S2 present. No murmurs, rubs or gallops. Incision site on her left chest wall area appears intact. Mild pain upon palpation. ABDOMEN: Soft, nontender. Bowel sounds are present x2. LUNGS: Clear to auscultation, rhonchi or wheezes noted. EXTREMITIES: No edema. Pedal pulses are present x2. NEUROLOGIC: No deficits noted. HOME MEDICATIONS: Amlodipine 10 mg daily, amitriptyline 25 mg daily, lisinopril 20 mg daily, fish oi l 1000 mg b.i.d., Zetia 10 mg at bedtime, atorvastatin 80 at bedtime, aspirin 81 mg every day, and K eflex 250 mg t.i.d. until 05/23/2018. Patient will be discharged home. Follow up as outpatient.
--- NOTE | 2018-05-15 11:29 | EKG ---
Test Reason : EMERGENCY EXAM Blood Pressure : / mmHG Vent. Rate : 041 BPM Atrial Rate : 041 BPM P-R Int : 162 ms QRS Dur : 088 ms QT Int : 494 ms P-R-T Axes : 108 -33 067 degrees QTc Int : 407 ms Marked sinus bradycardia with marked sinus arrhythmia Left axis deviation T wave abnormality, consider lateral ischemia Abnormal ECG Confirmed by LUCAS HOLT DO ([id number]), video effects editor MARÍA ARITA ([id number]) on 05/15/2018 11:28:57 AM Referred By: Confirmed By:LUCAS HOLT DO
== END 2018-05-14 15:46 | disposition home or self-care (01) | DRG 244 ==
LOC: ERS 11:36 → 2SW 14:42 → OBSVTOIN 05-11 17:22 → 2NO 05-11 20:03
PROVIDERS: ADMIT Internal Medicine; ATTEND Internal Medicine
PROC: 0JH606Z Insertion of Pacemaker, Dual Chamber into Chest Subcutaneous Tissue and Fascia, Open Approach (ICD-10-PCS; principal; 2018-05-12)
PROC: 02H63JZ Insertion of Pacemaker Lead into Right Atrium, Percutaneous Approach (ICD-10-PCS; 2018-05-12)
PROC: 02HK3JZ Insertion of Pacemaker Lead into Right Ventricle, Percutaneous Approach (ICD-10-PCS; 2018-05-12)
DX: R00.1 Bradycardia, unspecified (principal); I25.10 Atherosclerotic heart disease of native coronary artery without angina pectoris; I10 Essential (primary) hypertension; R10.13 Epigastric pain; I49.5 Sick sinus syndrome; E78.5 Hyperlipidemia, unspecified; Z79.899 Other long term (current) drug therapy; Z88.5 Allergy status to narcotic agent
CPT/HCPCS: 33249; 36415; 36416; 71045; 75820; 78451; 80048; 80053; 81003; 81015; 82533; 82553; 83036; 83880; 84436; 84443; 84479; 84484; 85025; 85610; 85730; 90471; 90670; 93005; 93010; 94760; 96374; 99152; 99153; A4216; A9500; C1785; C1898; G0009; J0461; J2001; J2250; J3010; J3490

== ENCOUNTER 2018-05-20 07:02 | Day surgery (SDC) | payer MEDICARE, MEDICAID ==
[2018-05-19 15:21] VITALS: BMI 24.4
[2018-05-20] MEDS ORDERED: CEFAZOLIN/Water 2 GM/20 ML SYRINGE ONE (09:06)
[2018-05-20] MEDS ORDERED: Fentanyl 100 MCG/2 ML VIAL ONE (10:02)
[2018-05-20] MEDS ORDERED: Midazolam HCl 2 mg/2 ml Vial ONE (10:02)
[2018-05-20] MEDS ORDERED: Lidocaine 1% (PF) 30 ML VIAL ONE (10:22)
[2018-05-20] MEDS ORDERED: Acetaminophen/Codeine 30-300mg Tablet ONE (11:24)
--- NOTE | 2018-05-20 13:21 | RAD ---
PORTABLE CHEST: Date: 05/20/18 PROVIDED CLINICAL HISTORY: None. COMPARISON: 05/13/18. FINDINGS: Cardiac silhouette remains enlarged. Left subclavian cardiac pacing device is noted with lead tips ov erlying expected locations of RA and RV. Vascular calcification involves the aortic arch. No focal co nsolidation, pleural fluid, or pneumothorax apparent. IMPRESSION: Cardiomegaly without evidence for an acute cardiopulmonary process. POS: [place]
== END 2018-05-20 13:10 | disposition home or self-care (01) ==
LOC: CCL 07:02
PROVIDERS: ATTEND Internal Medicine Cardiovascular Disease
PROC: 02WA3MZ Revision of Cardiac Lead in Heart, Percutaneous Approach (ICD-10-PCS; principal; 2018-05-20)
DX: T82.190A Other mechanical complication of cardiac electrode, initial encounter (principal); I49.5 Sick sinus syndrome; I25.10 Atherosclerotic heart disease of native coronary artery without angina pectoris; I10 Essential (primary) hypertension; E78.5 Hyperlipidemia, unspecified; Z79.82 Long term (current) use of aspirin; Z79.84 Long term (current) use of oral hypoglycemic drugs; Z79.899 Other long term (current) drug therapy; Z88.5 Allergy status to narcotic agent
CPT/HCPCS: 33216; 71045; 99152; 99153; J2001; J2250; J3010; J3490

== ENCOUNTER 2018-06-27 10:42 | Observation (INO) | payer MEDICARE, MEDICAID ==
[2018-06-27 11:05] LABS: #Basophils 0.1 thou/uL (0.0-0.2); #Eosinphils 0.2 thou/uL (0.0-0.7); #Lymphocytes 2.1 thou/uL (1.20-3.40); #Monocytes 0.5 thou/uL (0.11-0.59); #Neutrophils 3.6 thou/uL (1.40-6.50); %Basophils 0.9 % (0.0-1.0); %Eosinophils 2.3 % (0.0-10.0); %Lymphocytes 32.3 % (21.0-51.0); %Monocytes 7.9 % (0.0-10.0); %Neutrophils 56.6 % (42.0-75.0); Hemoglobin 12.8 g/dL (12.0-16.0); Mean Corpuscular Hemoglobin 29.8 pg (27.0-31.0); Mean Corpuscular Volume 90.5 fL (78.0-98.0); Mean Platelet Volume 7.3 fL (7.4-10.4); Platelet Count 221 thou/uL (130-400); RBC Distribution Width 12.1 % (11.5-14.5); Red Blood Cell (RBC) Count 4.29 mill/uL (4.20-5.40); White Blood Cell (WBC) Count 6.4 thou/uL (4.8-10.8)
[2018-06-27 11:27] LABS: ALT (SGPT) 18 U/L (8-55); AST (SGOT) 25 U/L (5-34); Albumin 4.7 g/dL (3.4-4.8); Alkaline Phosphatase 70 U/L (40-150); Anion Gap 17 mmol/L (10-20); BUN (Urea Nitrogen) 12 mg/dL (9.8-20.1); Bilirubin, Total 0.7 mg/dL (0.2-1.2); CK (CPK) 118 U/L (29-168); Calc. Creatinine Clearance 0 mL/min (70-130); Calcium 9.8 mg/dL (7.8-10.44); Carbon Dioxide 21 mmol/L (23-31); Chloride 104 mmol/L (98-107); Estimated GFR-MDRD 64; Glucose 111 mg/dL (83-110); Potassium 4.3 mmol/L (3.5-5.1); Protein, Total 8.7 g/dL (6.0-8.3); Sodium 138 mmol/L (136-145)
[2018-06-27 11:29] LABS: Troponin I Less than 0.010 ng/mL (< 0.028)
[2018-06-27] MEDS ORDERED: Nitroglycerin 2% Ointment 1 INCH/1 GM Packet ONE (11:33)
--- NOTE | 2018-06-27 11:51 | RAD ---
PORTABLE UPRIGHT FRONTAL CHEST RADIOGRAPH: DATE: 06/27/18. COMPARISON: 05/10/18. HISTORY: Chest pain radiating to the back. FINDINGS: Stable prominence of the cardiac silhouette. No pneumothorax is seen. There is a dual-lead transven ous pacing device inserted via a left subclavian approach with leads overlying the region of the righ t atrium and the right ventricle. There is atherosclerotic calcification in the aortic arch. IMPRESSION: No focal consolidation or alveolar edema. POS: [facility]GAN
[2018-06-27] MEDS ORDERED: HumaLOG 300 UNITS/3 ML VIAL SC PRN ×2 (13:34)
[2018-06-27] MEDS ORDERED: Dextrose 5% in Water 1,000 ML IV PRN (13:34)
[2018-06-27] MEDS ORDERED: Acetaminophen 325 MG TAB PO PRN (13:34)
[2018-06-27] MEDS ORDERED: Dextrose 50% Abboject 50 ML SYRINGE SLOW IVP PRN (13:34)
[2018-06-27 14:22] VITALS: BMI 24.2
[2018-06-27 15:00] LABS: Troponin I Less than 0.010 ng/mL (< 0.028)
--- NOTE | 2018-06-27 16:26 | HP ---
REASON FOR ADMISSION: Chest pain. HISTORY OF PRESENT ILLNESS: The patient gives history of retrosternal deep chest pain radiating to t he back. This started around last night. She kind of felt like it is bubbling. She initially thoug ht it was gas pains and tried to take some home remedies. This pain was coming off and on. Finally, it got relieved with 4 tablets of aspirin. Has no complaints of cough or expectoration. She recent ly had pacemaker placed in the first week of May by Dr. Carmona. The patient in fact has a followup appointment with Dr. Guallpa on the . Currently, has no chest pain or palpitation. No fever. PAST MEDICAL HISTORY: The patient had a lead revision done on 05/20/[address] Kristine Neville, coronar y artery disease with prior PCI, hypertension, dyslipidemia, tubal ligation, hysterectomy, diabetes m ellitus type 2. Nuclear stress test done in 04/2018 showed no significant perfusion defect. There i s mild prominence in size of the LV. The patient had a stress test done in 06/2014 which showed EF o f 75% with normal wall motion and normal myocardial perfusion scan. CURRENT MEDICATIONS: [place] 3 fatty acids 1 capsule twice daily, glipizide 5 mg daily, amitriptyline 25 mg p.o. at bedtime, Norvasc 10 mg daily, atorvastatin 80 mg p.o. at bedtime, lisinopril 20 mg twic e daily, aspirin 81 mg p.o. daily, Zetia 10 mg p.o. at bedtime. ALLERGIES: MORPHINE. PERSONAL HISTORY: Does not abuse alcohol or drugs. Chews tobacco. She stays with her great grandso n. FAMILY HISTORY: Mother at the age of 92 years. She was on dialysis. Father very young an d she does not recall the exact causes for his demise. CODE STATUS: FULL. Power of disability attorney is her daughter, Ms. Jaz Prasad, number to reach her is [phone]. REVIEW OF SYSTEMS: The following complete review of systems was negative, unless otherwise mentioned in the HPI or below: Constitutional: Weight loss or gain, ability to conduct usual activities. Sk in: Rash, itching. Eyes: Double vision, pain. ENT/Mouth: Nose bleeding, neck stiffness, pain, te nderness. Cardiovascular: Palpitations, dyspnea on exertion, orthopnea. Respiratory: Shortness of breath, wheezing, cough, hemoptysis, fever or night sweats. Gastrointestinal: Poor appetite, abdom inal pain, heartburn, nausea, vomiting, constipation, or diarrhea. Genitourinary: Urgency, frequenc y, dysuria, nocturia. Musculoskeletal: Pain, swelling. Neurologic/Psychiatric: Anxiety, depressio n. Allergy/Immunologic: Skin rash, bleeding tendency. PHYSICAL EXAMINATION: GENERAL: The patient is a 78-year-old female who is currently not in any acute distress and is chest pain free. VITAL SIGNS: Blood pressure 150/86, pulse 60 per minute, respiratory rate 20 per minute, temperature 99.1 degrees Fahrenheit, saturating 99% on room air. NECK: Supple, no elevated JVD. HEENT: Extraocular muscles intact. Pupils reacting to light. Oral cavity mucous membranes are mois t. No exudates or congestion. CARDIOVASCULAR SYSTEM: S1, S2 heard. Regular rhythm. RESPIRATORY SYSTEM: Air entry 1+ bilaterally. No rales or rhonchi. ABDOMEN: Soft, bowel sounds heard. No tenderness, rigidity or guarding. EXTREMITIES: No peripheral edema or calf tenderness. VASCULAR SYSTEM: Peripheral pulses 1+ bilateral, no ischemic ulcerations or gangrene. CENTRAL NERVOUS SYSTEM: No gross focal deficits noted. Patient is alert, awake, and oriented well. PSYCHIATRIC: The patient's mood is euthymic. No hallucinations or delusions. LABORATORY AND X-RAY FINDINGS: EKG done shows atrial paced rhythm at 87 beats per minute. First set of troponin is negative. CK-MB is 1.0, albumin is 4.7, serum glucose 111, BUN is 12, creatinine 1.0 . Serum bicarbonate 21. White count of 6, H&H 12 and 38 with 56% neutrophils, platelet count is 221 , MCV is 90. CLINICAL IMPRESSION AND PLAN: The patient will be under observation on telemetry for chest pain, rul e out acute coronary syndrome. She has had two previous stress tests done as mentioned above. She i s for enzymatic rule out. We will obtain two more sets of cardiac enzymes and if they are negative, she can be discharged home. She has a followup appointment with Dr. Guallpa on 07/06/[address] Shana ribera sometime next week, which she cannot recall the exact date in view of her recent pacemaker revisi on done on 05/20/2018. The pacemaker site is healing, has crusted up skin which patient has not carlos nazario up. There is no obvious fluctuation or purulence seen at the site. We will continue all her yanick e medications as of now. Thank you Dr. Hui. If her next 2 sets of cardiac enzymes are negative, she will be shortly d ischarged home.
[2018-06-27 17:22] LABS: Troponin I 0.016 ng/mL (< 0.028)
[2018-06-27] MEDS ORDERED: Nitroglycerin 2% Ointment 1 INCH/1 GM Packet TOP SCH (18:00)
[2018-06-27] MEDS: Famotidine 20 MG TAB PO SCH (20:44)
[2018-06-27] MEDS: Fish Oil 1,000 MG CAP PO SCH (20:44)
[2018-06-27] MEDS ORDERED: Atorvastatin Calcium 40 MG TAB PO SCH (21:00)
[2018-06-27] MEDS ORDERED: Ezetimibe 10 MG TAB PO SCH (21:00)
[2018-06-28 05:11] LABS: #Basophils 0.1 thou/uL (0.0-0.2); #Eosinphils 0.1 thou/uL (0.0-0.7); #Lymphocytes 1.8 thou/uL (1.20-3.40); #Monocytes 0.4 thou/uL (0.11-0.59); #Neutrophils 2.4 thou/uL (1.40-6.50); %Basophils 1.3 % (0.0-1.0); %Eosinophils 2.5 % (0.0-10.0); %Lymphocytes 37.6 % (21.0-51.0); %Monocytes 7.5 % (0.0-10.0); Hemoglobin 10.8 g/dL (12.0-16.0); Mean Corpuscular HGB CONC 33.6 g/dL (32.0-36.0); Mean Corpuscular Hemoglobin 30.4 pg (27.0-31.0); Mean Corpuscular Volume 90.5 fL (78.0-98.0); Mean Platelet Volume 7.4 fL (7.4-10.4); Platelet Count 200 thou/uL (130-400); Red Blood Cell (RBC) Count 3.56 mill/uL (4.20-5.40); White Blood Cell (WBC) Count 4.7 thou/uL (4.8-10.8)
[2018-06-28 05:31] LABS: Anion Gap 11 mmol/L (10-20); BUN (Urea Nitrogen) 10 mg/dL (9.8-20.1); Calc. Creatinine Clearance 61 mL/min (70-130); Calcium 9.1 mg/dL (7.8-10.44); Carbon Dioxide 23 mmol/L (23-31); Cardiac Risk 2.7 (Less than 4.5); Chloride 107 mmol/L (98-107); Cholesterol 117 mg/dl (< 200 Desired); Estimated GFR-MDRD 76; Glucose 112 mg/dL (83-110); HDL Cholesterol 43 mg/dL (>60 Neg Risk); LDL Cholesterol, Calculated 65 mg/dL; Potassium 3.9 mmol/L (3.5-5.1); Sodium 137 mmol/L (136-145); Triglycerides 43 mg/dL (Less than 150)
[2018-06-28] MEDS ORDERED: glipiZIDE 5 MG TAB PO SCH (07:30)
[2018-06-28] MEDS: Famotidine 20 MG TAB PO SCH (07:56)
[2018-06-28] MEDS: Fish Oil 1,000 MG CAP PO SCH (07:56)
[2018-06-28 07:58] VITALS: BP 142/84; TEMP 98.6
[2018-06-28] MEDS ORDERED: Amlodipine 10 MG TAB PO SCH (09:00)
[2018-06-28] MEDS ORDERED: Enoxaparin Sodium 40 MG/0.4 ML SYRINGE SC SCH (09:00)
[2018-06-28] MEDS ORDERED: Aspirin 81 mg Enteric Coated Tablet PO SCH (09:00)
[2018-06-28] MEDS ORDERED: Amitriptyline HCl 25 MG TAB PO SCH (09:00)
[2018-06-28] MEDS ORDERED: Lisinopril 10 MG TAB PO SCH (09:00)
--- NOTE | 2018-06-28 14:28 | PDOC.PN ---
- Subjective Encounter Start Date: 06/28/18 Encounter Start Time: 08:45 Subjective: no sob or palp -: is ambulating in room -: no new complaints - Objective Resuscitation Status: Resuscitation Status FULL:Full Resuscitation MAR Reviewed: Yes Vital Signs & Weight: Vital Signs (12 hours) Temp Pulse Resp BP Pulse Ox 06/28/18 07:42 98.6 F 77 20 142/84 H 99 06/28/18 07:26 98.1 F 57 L 16 06/28/18 05:51 95 06/28/18 04:29 98.1 F 57 L 16 120/69 95 Weight Weight 156 lb 6.4 oz I&O: 06/27/18 06/28/18 06/29/18 06:59 06:59 06:59 Intake Total 1200 Output Total 725 Balance 475 Result Diagrams: 06/28/18 04:30 06/28/18 04:30 Additional Labs: Accuchecks 06/27/18 06/27/18 06/27/18 21:04 16:40 14:31 POC Glucose 87 180 H 99 Phys Exam - Physical Examination HEENT: PERRLA, moist MMs Neck: no JVD, supple Respiratory: no wheezing, no rales Cardiovascular: RRR, no significant murmur Gastrointestinal: soft, non-tender, positive bowel sounds Musculoskeletal: no edema, pulses present Neurological: non-focal, moves all 4 limbs Psychiatric: normal affect, A&O x 3 Dx/Plan (1) Chest discomfort Code(s): R07.89 - OTHER CHEST PAIN Status: Acute (2) CAD (coronary artery disease) Code(s): I25.10 - ATHSCL HEART DISEASE OF [place] CORONARY ARTERY W/O ANG PCTRS Status: Chronic Qualifiers: Coronary Disease-Associated Artery/Lesion type: [place] artery [place] vs. transplanted heart: [place] heart (3) Dyslipidemia Code(s): E78.5 - HYPERLIPIDEMIA, UNSPECIFIED Status: Chronic (4) HTN (hypertension) Code(s): I10 - ESSENTIAL (PRIMARY) HYPERTENSION Status: Chronic Qualifiers: Hypertension type: essential hypertension (5) Pacemaker Code(s): Z95.0 - PRESENCE OF CARDIAC PACEMAKER Status: Chronic - Plan trop x 3 -ve -: hemostable -: has f/u appt with this week * .
--- NOTE | 2018-06-28 23:28 | DIS ---
DATE OF ADMISSION: 06/27/2018 DATE OF DISCHARGE: 06/28/2018 DISCHARGE DISPOSITION: To home. PRIMARY DISCHARGE DIAGNOSIS: Chest pain, likely noncardiac. SECONDARY DISCHARGE DIAGNOSES: History of coronary artery disease, hypertension, dyslipidemia, recen t revision of her pacemaker in May. PROCEDURES DONE DURING HOSPITALIZATION: Chest x-ray done showed no focal consolidation or alveolar e vivian. H&H 10 and 32, platelet count 200, MCV is 90. Total cholesterol 117, triglycerides 43, LDL 65 , HDL 43. Troponin x3 negative. BUN 10, creatinine 0.8. DISCHARGE MEDICATIONS: Aspirin 81 mg p.o. daily, Lipitor 80 mg p.o. at bedtime, Norvasc 10 mg p.o. d aily, amitriptyline 25 mg p.o. at bedtime, Zetia 10 mg p.o. at bedtime, fish oil 1000 mg p.o. daily, glipizide 5 mg p.o. daily, lisinopril 20 mg twice daily. ALLERGIES: Allergic to MORPHINE. DISCHARGE PLAN: The patient has followup appointment with Dr. Guallpa this weekend. She also needs follow up with primary care physician in 1 week. BRIEF COURSE DURING HOSPITALIZATION: The patient initially came in with complaints of retrosternal d eep chest pain radiating to the back. In view of her history of coronary artery disease, the patient was placed under observation on telemetry. Three sets of troponin were negative. The patient has h ad stress test done this year in the month of April which showed no significant perfusion defect. She remained hemodynamically stable during her stay here. The patient has a followup appointment with Wen Guallpa this week and Dr. Carmona as well. She had a revision done for her pacemaker on 05/20/2018 and the pacemaker incision site under the left infraclavicular area appears to be clean. Please see a [id number] documentation on [facility] for the day of discharge.
== END 2018-06-28 12:14 | disposition home or self-care (01) ==
LOC: ERS 10:42 → 2SW 12:10
PROVIDERS: ADMIT Internal Medicine; ATTEND Internal Medicine
DX: R07.89 Other chest pain (principal); I10 Essential (primary) hypertension; I25.10 Atherosclerotic heart disease of native coronary artery without angina pectoris; E78.5 Hyperlipidemia, unspecified; Z88.8 Allergy status to other drugs, medicaments and biological substances; Z95.0 Presence of cardiac pacemaker; Z79.82 Long term (current) use of aspirin; Z79.899 Other long term (current) drug therapy
CPT/HCPCS: 71045; 80048; 80053; 80061; 82550; 82553; 82962; 84484 ×2; 85025 ×2; 93005; 94760 ×2; 96372; 97139; 99285; G0378 ×2; 36415; 36416; J1650

== ENCOUNTER 2018-09-06 07:51 | Outpatient (CLI) | payer MEDICARE, MEDICAID | END 2018-09-06 07:52 | disposition home or self-care (01) | LOC: BICMAMMO 07:51 | PROVIDERS: ATTEND Internal Medicine | DX: Z12.31 Encounter for screening mammogram for malignant neoplasm of breast (principal); R92.1 Mammographic calcification found on diagnostic imaging of breast | CPT/HCPCS: 77063; 77067 ==

== ENCOUNTER 2018-09-23 08:20 | Emergency (ER) | payer MEDICARE, MEDICAID ==
--- NOTE | 2018-09-23 09:27 | RAD ---
RADIOGRAPH RIGHT HIP 2 VIEWS: Date: 09/23/18 HISTORY: 78-year-old female with traumatic right hip pain due to fall. FINDINGS: No fracture or dislocation. Femoral head contour is maintained. No subcapital osteophytes. Minimal ce ntral joint space narrowing. IMPRESSION: Negative. POS: [facility]
[2018-09-23] MEDS ORDERED: Acetaminophen 500 MG TAB ONE (09:43)
== END 2018-09-23 09:46 | disposition home or self-care (01) ==
LOC: ERS 08:20
DX: S70.01XA Contusion of right hip, initial encounter (principal); E11.9 Type 2 diabetes mellitus without complications; I48.91 Unspecified atrial fibrillation; E78.5 Hyperlipidemia, unspecified; I10 Essential (primary) hypertension; F17.220 Nicotine dependence, chewing tobacco, uncomplicated; Z79.84 Long term (current) use of oral hypoglycemic drugs; Z79.899 Other long term (current) drug therapy; W19.XXXA Unspecified fall, initial encounter

== ENCOUNTER 2018-10-19 11:24 | Emergency (ER) | payer MEDICARE, MEDICAID ==
[2018-10-19] MEDS ORDERED: Ondansetron PF 4 MG/2 ML Vial ONE (11:48)
[2018-10-19] MEDS ORDERED: Fentanyl 100 MCG/2 ML VIAL ONE (11:48)
[2018-10-19 12:10] LABS: #Eosinphils 0.1 thou/uL (0.0-0.7); #Lymphocytes 1.5 thou/uL (1.20-3.40); #Monocytes 0.4 thou/uL (0.11-0.59); #Neutrophils 1.3 thou/uL (1.40-6.50); %Basophils 1.1 % (0.0-1.0); %Eosinophils 2.1 % (0.0-10.0); %Lymphocytes 46.3 % (21.0-51.0); %Monocytes 12.2 % (0.0-10.0); %Neutrophils 38.3 % (42.0-75.0); Mean Corpuscular HGB CONC 33.4 g/dL (32.0-36.0); Mean Corpuscular Hemoglobin 30.1 pg (27.0-31.0); Mean Corpuscular Volume 90.3 fL (78.0-98.0); Mean Platelet Volume 7.2 fL (7.4-10.4); Platelet Count 226 thou/uL (130-400); RBC Distribution Width 12.5 % (11.5-14.5); Red Blood Cell (RBC) Count 4.31 mill/uL (4.20-5.40); White Blood Cell (WBC) Count 3.3 thou/uL (4.8-10.8)
[2018-10-19 12:32] LABS: ALT (SGPT) 26 U/L (8-55); AST (SGOT) 26 U/L (5-34); Albumin 4.2 g/dL (3.4-4.8); Alkaline Phosphatase 63 U/L (40-150); Anion Gap 13 mmol/L (10-20); BUN (Urea Nitrogen) 16 mg/dL (9.8-20.1); Bilirubin, Total 0.5 mg/dL (0.2-1.2); Calc. Creatinine Clearance 0 mL/min (70-130); Calcium 9.4 mg/dL (7.8-10.44); Carbon Dioxide 26 mmol/L (23-31); Chloride 105 mmol/L (98-107); Estimated GFR-MDRD 61; Globulin 2.8 g/dL (2.4-3.5); Glucose 109 mg/dL (83-110); Lipase 13 U/L (8-78); Potassium 3.7 mmol/L (3.5-5.1); Sodium 140 mmol/L (136-145)
--- NOTE | 2018-10-19 13:18 | CT ---
CT ABDOMEN AND PELVIS WITH IV CONTRAST: DATE: 10/19/2018. HISTORY: Abdominal pain which started 2 weeks ago. COMPARISON: Studies on 06/12/2014 and 11/28/2015. FINDINGS: The hyperdense lesion within the mid portion of the left kidney is again seen, and is larger in size on today's exam measuring 6.1 cm x 4.2 cm, and this previously measured 4.8 cm x 3.7 cm. There is al so an increased density lesion seen at the inferior pole left kidney measuring 1.6 cm, which was not seen on prior studies. There is an additional hyperdense lesion lateral aspect mid portion left kidn ey measuring 1.4 cm and previously measured 1.1 cm. A few difficult to characterize hypodense lesion s are seen in each kidney. There is a low-density area in the superior pole left kidney which is th ought to be related to dilated calyx which may be secondary to the hyperdense cystic mass-like struct ure within the renal hilum. This area of dilatation has increased. This could potentially represent a parapelvic cyst but is thought to be related to dilatation of the superior pole calyx. A nonobstr ucting superior pole left renal calculus is again present. The heart is mildly enlarged. There is a tiny pericardial effusion present. Dual-lead cardiac pacem aking leads are present. There is dependent atelectasis at each lung base. A calcified granuloma is present in the liver. The spleen, bilateral adrenal glands, and decompressed urinary bladder demonstrate a normal CT appear ance. There is a hypodense mass seen within the body of the pancreas which measures 3.3 cm craniocaudal x 4 .1 cm transverse x 2.7 cm AP which was not visualized on the prior exams. There is dilatation of the pancreatic duct within the tail and remainder of the body of the pancreas. Vascular calcifications are seen in the abdominal aorta involving the iliac arteries. There is a trace amount of free fluid in the pelvis. The uterus is not visualized probably related to prior hysterectomy. There are scattered colonic diverticulosis present. Degenerative changes are seen in the spine. There are findings again suggestive of osteonecrosis inv olving the femoral heads bilaterally which has progressed when compared to the study in 2013. IMPRESSION: 1. Hypodense and slightly heterogeneous mass in the body of the pancreas worrisome for neoplastic pr ocess. There is resultant dilatation of the pancreatic duct involving the tail and body of the pancr eas. 2. Small pericardial effusion and mild cardiomegaly. 3. Large hyperdense cystic mass-like structure within the mid portion left kidney which is larger in size compared on the prior exams. A few additional hyperdense cystic lesions are seen in the mid po rtion left kidney and inferior pole left kidney which are exophytic. These lesions may represent hyp erdense Bosniak type II cystic renal lesions, but the lesion in the mid portion right kidney extendin g into the renal hilum is larger in size, and there is a greater degree of dilatation of the superior pole left renal collecting system. 4. Subcentimeter too small to characterize hypodense lesions in each kidney. 5. Probable hysterectomy. 6. Trace amount of free fluid in the pelvis. 7. Bilateral femoral head osteonecrosis greater on the left, and the osteonecrosis in each hip has progressed from prior study in 2014. 8. Stable subcentimeter hypodense lesion within the lateral segment left hepatic lobe. 9. The above findings were discussed with Dr. Staton in the emergency department on 10/19/2018 at 1244 hours. CODE CR POS: [facility]
[2018-10-19 13:30] LABS: Bilirubin Negative (Negative); Blood, Urine Negative (Negative); Clarity CLEAR (Clear); Glucose, Urine (Dipstick) Negative (Negative); Leukocyte Trace (Negative); Nitrite Negative (Negative); Protein, Urine (Dipstick) Trace mg/dL (Neg-Trace); Specific Gravity, Urine 1.015 (1.002-1.036)
[2018-10-19 13:33] LABS: Bacteria/HPF None Seen HPF (None Seen); Squamous Epithelial 0-3 HPF (0-3); WBC/HPF 0-3 HPF (0-3)
[2018-10-19 13:35] LABS: Pathc Cast-AUWi Flag 2.61 (0-2.49)
[2018-10-19 13:45] LABS: Other Casts/LPF None Seen LPF (0-3 Hyaline)
== END 2018-10-19 13:29 | disposition home or self-care (01) ==
LOC: ERS 11:24
DX: C25.9 Malignant neoplasm of pancreas, unspecified (principal); E11.9 Type 2 diabetes mellitus without complications; I25.10 Atherosclerotic heart disease of native coronary artery without angina pectoris; I48.91 Unspecified atrial fibrillation; E78.5 Hyperlipidemia, unspecified; I10 Essential (primary) hypertension; F41.9 Anxiety disorder, unspecified; F32.9 Major depressive disorder, single episode, unspecified; F17.220 Nicotine dependence, chewing tobacco, uncomplicated; Z79.899 Other long term (current) drug therapy
CPT/HCPCS: 74177; 80053; 81003; 81015; 83690; 85025; 86301; 96361; 96374; 96375; J2405; J3010

== ENCOUNTER 2018-11-14 09:10 | Emergency (ER) | payer MEDICARE, MEDICAID ==
[2018-11-14 09:51] LABS: #Eosinphils 0.1 thou/uL (0.0-0.7); #Lymphocytes 1.1 thou/uL (1.20-3.40); #Monocytes 0.4 thou/uL (0.11-0.59); #Neutrophils 4.7 thou/uL (1.40-6.50); %Basophils 0.6 % (0.0-1.0); %Eosinophils 1.4 % (0.0-10.0); %Lymphocytes 17.4 % (21.0-51.0); %Monocytes 6.6 % (0.0-10.0); %Neutrophils 74.1 % (42.0-75.0); Hemoglobin 11.3 g/dL (12.0-16.0); Mean Corpuscular HGB CONC 33.1 g/dL (32.0-36.0); Mean Corpuscular Hemoglobin 30.2 pg (27.0-31.0); Mean Corpuscular Volume 91.2 fL (78.0-98.0); Platelet Count 366 thou/uL (130-400); RBC Distribution Width 12.8 % (11.5-14.5); Red Blood Cell (RBC) Count 3.74 mill/uL (4.20-5.40); White Blood Cell (WBC) Count 6.4 thou/uL (4.8-10.8)
[2018-11-14 10:15] LABS: ALT (SGPT) 21 U/L (8-55); AST (SGOT) 18 U/L (5-34); Alkaline Phosphatase 57 U/L (40-150); Anion Gap 13 mmol/L (10-20); BUN (Urea Nitrogen) 13 mg/dL (9.8-20.1); Bilirubin, Total 0.6 mg/dL (0.2-1.2); Calc. Creatinine Clearance 0 mL/min (70-130); Calcium 9.4 mg/dL (7.8-10.44); Carbon Dioxide 23 mmol/L (23-31); Chloride 105 mmol/L (98-107); Estimated GFR-MDRD 83; Globulin 3.3 g/dL (2.4-3.5); Glucose 135 mg/dL (83-110); Potassium 3.6 mmol/L (3.5-5.1); Protein, Total 7.3 g/dL (6.0-8.3); Sodium 137 mmol/L (136-145)
--- NOTE | 2018-11-14 10:28 | RAD ---
PORTABLE CHEST 1 VIEW: DATE: 11/14/2018. TIME: 9:40 a.m. HISTORY: Chest pain, fever, body aches. FINDINGS: Comparison is made with the exam of 06/27/2018. The heart size is borderline. Left side pacing device remains in place. No focal areas of consolida tion, pneumothorax, yulia pulmonary edema, or pleural effusions are seen. POS: [facility]
[2018-11-14] MEDS ORDERED: Cyclobenzaprine 10 MG TAB ONE (11:18)
== END 2018-11-14 11:21 | disposition home or self-care (01) ==
LOC: ERS 09:10
DX: M25.512 Pain in left shoulder (principal); M79.10 Myalgia, unspecified site; E11.9 Type 2 diabetes mellitus without complications; I25.10 Atherosclerotic heart disease of native coronary artery without angina pectoris; I48.91 Unspecified atrial fibrillation; E78.5 Hyperlipidemia, unspecified; I10 Essential (primary) hypertension
CPT/HCPCS: 71045; 80053; 84484; 85025; 93005

== ENCOUNTER 2018-12-01 13:36 | Outpatient (CLI) | payer MEDICARE, MEDICAID ==
--- NOTE | 2018-12-01 17:13 | CT ---
CT THORAX WITH IV CONTRAST CT ABDOMEN AND PELVIS WITH IV CONTRAST 12/01/18 HISTORY: Pancreatic cancer with metastatic liver disease. COMPARISON: CT angiogram chest on 07/10/[address] abdomen and pelvis on 10/19/18. CT THORAX: There are hypodense nodules again seen in each lobe of the thyroid gland. A dual lead left subclavian cardiac pacemaking device is noted in place. Vascular calcifications are seen in the coronary arteries as well as involving the thoracic aorta. A small pericardial effusion is present. There are linear areas of scarring versus atelectasis within the right upper lobe as well as in the l eft lung base. No pulmonary nodule or mass is seen in the lungs bilaterally. Degenerative changes are seen in the spine. CT ABDOMEN AND PELVIS: The previously noted mass within the body of the pancreas is again seen but is larger in size and mor e heterogeneous in appearance on today's exam with gross measurement on today's exam of 6.2 cm x 3.3 cm, and previously noted mass on the prior study is 4.1 cm x 2.7 cm. There is adjacent inflammatory s tranding and there is also atrophy of the tail of the pancreas with dilatation of the pancreatic duct again present. The inflammatory stranding adjacent to the pancreatic mass extends to the level of th e stomach and there is also thickening in the region of the lesser curvature of the stomach. Extensio n of neoplastic process to involve the stomach in this region is a possibility. There are multiple increased density lesions involving the left kidney on precontrast images with lar gest increased density lesion again present. No enhancement is seen within the hyperdense lesion and these hyperdense lesions are most likely attributable to hyperdense Bosniak type II cystic renal lesi ons. There is a stable cyst within the right kidney with subcentimeter too small to characterize hypo dense lesion in the right kidney. There is no hydronephrosis. The liver, spleen, bilateral adrenal glands, decompressed urinary bladder, and opacified small bowel demonstrate a normal CT appearance. There is colonic diverticulosis. Vascular calcifications again seen in the abdominal aorta involving the iliac arteries. Small amount of free fluid is seen in the pelvis. There is evidence of prior hysterectomy. Small to moderate amount of retained fecal material is seen in the region of the ascending colon and involving the rectum. No definite lymphadenopathy is seen. Very small lipomas again seen within the oblique musculature right lateral mid abdomen. Degenerative changes are seen in the spine. Again noted is avascular necrosis involving the bilateral femoral heads. IMPRESSION: 1. Enlargement of a heterogeneous mass involving the body of the pancreas with subsequent atroph y of the tail of the pancreas and dilatation of the pancreatic duct. There is adjacent inflammatory s tranding and there is also thickening involving the stomach adjacent to the level of the pancreatic m ass. Thickening could be reactive in origin, but extension of tumor to involve the stomach cannot be entirely excluded. 2. Bosniak type II hyperdense renal cystic lesions on the left with stable hypodense lesion seen within the superior pole left renal collecting system which could be related to a dilated calyx or p ossibly a superior pole left renal parapelvic cyst. Right renal cyst is again seen with subcentimeter hypodense lesions again noted. 3. Nonobstructing left renal calculi. 4. Tiny pericardial effusion also present on prior exam. 5. Hypodense lesions present in thyroid gland also seen on prior CT thorax in 2014. 6. Tiny amount of free fluid in the pelvis. 7. Colonic diverticulosis. 8. Linear scarring versus atelectasis in the right upper lobe. No discrete pulmonary nodule is s een. 9. Osteonecrosis bilateral femoral heads. 10. Tiny subcentimeter hypodense lesion lateral segment left hepatic lobe is again present. POS: [facility]
== END 2018-12-01 13:37 | disposition home or self-care (01) ==
LOC: SCSCT 13:36
PROVIDERS: ATTEND Internal Medicine Hematology & Oncology
DX: C25.1 Malignant neoplasm of body of pancreas (principal); C78.7 Secondary malignant neoplasm of liver and intrahepatic bile duct; N20.0 Calculus of kidney; N28.1 Cyst of kidney, acquired; K86.9 Disease of pancreas, unspecified; K31.89 Other diseases of stomach and duodenum; I31.3 Pericardial effusion (noninflammatory); E04.1 Nontoxic single thyroid nodule; K57.30 Diverticulosis of large intestine without perforation or abscess without bleeding; M87.852 Other osteonecrosis, left femur; M87.851 Other osteonecrosis, right femur; K76.89 Other specified diseases of liver
CPT/HCPCS: 36415; 71260; 74178; 80053; 82248; 83615; 84100; 84550; 86301

== ENCOUNTER 2018-12-22 10:42 | Day surgery (SDC) | payer MEDICARE, MEDICAID ==
[2018-12-07 12:10] VITALS: BMI 23.5
--- NOTE | 2018-12-07 13:13 | HP ---
HISTORY OF PRESENT ILLNESS: Oliverio Portillo is a 78-year-old black female with a 6 cm mass increased in size, pancreatic body with tail atrophy and mass encroaching into the stomach. She has had an endoscopic ultrasound at [facility] demonstrating pancreatic cancer. She has an appointment to see a surgeon in [place] this Thursday. Dr. Parks has asked me to see her regarding placement of a MediPort. Plan is to place a low-profile MediPort after holding her Eliquis for two days prior. She can resume Eliquis 36 hours postoperatively. Risks of infection, bleeding, and reoperation explained. She consents. The patient has a history of coronary artery disease, had a stent placed 12 years ago and has a left subclavian vein pacemaker. Most likely, we will place a MediPort in right subclavian vein. ALLERGIES: NONE. SHE REPORTS ADVERSE REACTION TO MORPHINE, BUT SHE HAD MULTIPLE OTHER MEDICATIONS AND THIS WAS NOT AN ALLERGIC REACTION. TOBACCO: None. ALCOHOL: None for many years. MEDICATIONS: 1. Caduet 10/80 mg daily. 2. Lisinopril 20 mg a day. 3. Zetia 10 mg a day. 4. Amitriptyline 25 mg a day. 5. Aspirin 81 mg a day. 6. Fish oil daily. 7. Caltrate 600 mg a day. 8. Eliquis 5 mg b.i.d. 9. Oral hypoglycemic, glipizide 5 mg a day. 10. She is not on insulin. PAST SURGICAL HISTORY: Cardiac stent 12 years ago, pacemaker left subclavian years past, endoscopic ultrasound recently for pancreatic cancer diagnosis FNA, hysterectomy, bilateral salpingo-oophorectomy in the past. She is due for colonoscopy again soon. Cardiac catheterization in 2007. PAST MEDICAL HISTORY: Coronary artery disease followed by Dr. Guallpa, saw him last few weeks ago, will be seen again for cardiac stress test, anticipating possible pancreatic surgery in the future after undergoing neoadjuvant therapy, diabetes mellitus type 2, pancreatic cancer, hypertension, coronary artery disease, pacemaker status, anticoagulation, chronic Eliquis, hyperlipidemia, arthritis, anxiety, depression. REVIEW OF SYSTEMS: Ten-point noncontributory. PHYSICAL EXAMINATION: VITAL SIGNS: 150 pounds, 5 feet 7 inches, 141/74, 69, 98.4 degrees. HEAD, EARS, EYES, NOSE, AND THROAT: Unremarkable. LUNGS: Clear to auscultation. CARDIAC: Regular rate and rhythm without murmur or gallop. ABDOMEN: Soft. Mass in her left upper abdomen slightly tender, mass consistent with pancreatic cancer. EXTREMITIES: Unremarkable. No ankle edema. LABORATORY DATA: No laboratories on 12/01/2018. Do not need to repeat her laboratories on record at [facility]. ASSESSMENT AND PLAN: 1. Pancreatic cancer. Plan is for placement of low-profile MediPort, IV sedation local after holding her Eliquis 48 hours prior to the operation. She can resume at 36 hours after the operation. She can continue her aspirin. Do not need to hold this. 2. Coronary artery disease. 3. Pacemaker. 4. Chronic anticoagulation. Job ID: [id number]
[2018-12-22] MEDS ORDERED: Bupivacaine HCl 0.5%/Epinephrine 1:200,000/PF 30 ml Vial ONE (11:21)
[2018-12-22] MEDS ORDERED: Lidocaine 2% PF 5 ML VIAL ONE (11:22)
[2018-12-22] MEDS ORDERED: Fentanyl 100 MCG/2 ML VIAL ONE (13:14)
[2018-12-22] MEDS ORDERED: PROPOFOL 40 ML ONE (13:14)
[2018-12-22] MEDS ORDERED: Lidocaine 1% PF 5 ML VIAL ONE (13:39)
[2018-12-22] MEDS ORDERED: PROPOFOL 200 MG/20 ML VIAL ONE ×2 (13:39→13:40)
[2018-12-22] MEDS ORDERED: PHENYLEPHRINE-NS 100 MCG/ML 10 ML SYRINGE ONE (13:39)
--- NOTE | 2018-12-22 15:41 | RAD ---
CHEST ONE VIEW: HISTORY: Mediport placement. COMPARISON: 11/14/2018 FINDINGS: Heart size is borderline, considering portable technique. Pacemaker is present. There are atheroscl erotic changes of the aorta. A right-sided Mediport catheter is seen. The catheter tip overlies the superior vena cava. There are no signs of pneumothorax. IMPRESSION: Mediport catheter placement. No signs of pneumothorax. POS: [facility]
--- NOTE | 2018-12-22 17:09 | OP ---
DATE OF PROCEDURE: 12/22/2018 PREOPERATIVE DIAGNOSIS: Pancreatic cancer. POSTOPERATIVE DIAGNOSIS: Pancreatic cancer. PROCEDURE PERFORMED: Right subclavian vein low-profile MediPort for antineoplastic chemotherapy access. ANESTHESIA: TIVA, local 0.5% Marcaine with epinephrine of 30 mL mixed with 2% Xylocaine 10 mL. DESCRIPTION OF PROCEDURE: The patient was taken to the operating room, where under intravenous sedation, chest and neck were prepared with ChloraPrep and draped in routine fashion. Local anesthetic mixture was infiltrated into the skin and subcutaneous tissue about the operative site. Trocar catheter was cannulated in the right subclavian vein infraclavicular approach. J-wire threaded, trocar catheter removed. Skin incision made carried down through skin and subcutaneous tissue. Pocket created with blunt and sharp dissection using cautery for hemostasis. Dilator and Peel-Away sheath placed with J-wire in the superior vena cava and dilator and J-wire removed, catheter placed through the Peel-Away sheath and pull away sheath removed. Catheter placed in optimal position in superior vena cava under fluoroscopic visualization and catheter tailored to length, connected to the MediPort placed in subcutaneous pocket, secured with 2 interrupted suture of 3-0 Prolene. Subcutaneous tissue was approximated with 3-0 Monocryl, skin with subdermal 4-0 Monocryl. Zwingle glue applied. MediPort accessed with a Schulz needle access and blood aspirated, flushed with heparinized saline solution. The patient tolerated the procedure well. Job ID: [id number]
[2018-12-23] MEDS ORDERED: PROPOFOL 200 MG/20 ML VIAL ONE (10:02)
== END 2018-12-22 14:50 | disposition home or self-care (01) ==
LOC: SDC 10:42
PROVIDERS: ATTEND Specialist
PROC: 0JH63WZ Insertion of Totally Implantable Vascular Access Device into Chest Subcutaneous Tissue and Fascia, Percutaneous Approach (ICD-10-PCS; principal; 2018-12-22)
DX: C25.9 Malignant neoplasm of pancreas, unspecified (principal); I25.10 Atherosclerotic heart disease of native coronary artery without angina pectoris; E11.9 Type 2 diabetes mellitus without complications; I10 Essential (primary) hypertension; E78.5 Hyperlipidemia, unspecified; M19.90 Unspecified osteoarthritis, unspecified site; F41.9 Anxiety disorder, unspecified; F32.9 Major depressive disorder, single episode, unspecified; Z79.01 Long term (current) use of anticoagulants; Z79.82 Long term (current) use of aspirin; Z79.84 Long term (current) use of oral hypoglycemic drugs; Z79.899 Other long term (current) drug therapy; Z88.5 Allergy status to narcotic agent; Z95.0 Presence of cardiac pacemaker; Z95.5 Presence of coronary angioplasty implant and graft
CPT/HCPCS: 71045; C1788; J0670; J1642; J2001; J2704; J3010

== ENCOUNTER 2018-12-28 08:15 | Day surgery (SDC) | payer MEDICARE, MEDICAID ==
[~2018-12-28 08:15] MED LIST: Atropine Sulfate 0.25 MG in Sodium Chloride 0.9% 50 ML IVPB SCH; Dexamethasone 20 MG in Sodium Chloride 0.9% 50 ML IVPB SCH; Fosaprepitant Dimeglumine 150 MG in Sodium Chloride 0.9% 250 ML 150 ML IVPB SCH; IRINOTECAN IVPB SCH; LEUCOVORIN CALCIUM IVPB SCH; Palonosetron HCl 0.25 MG in Sodium Chloride 0.9% 50 ML IVPB SCH; SODIUM CHLORIDE 0.9% IVPB SCH
[2018-12-28] MEDS ORDERED: Sodium Chloride 0.9% 20 ML ONE (08:40)
[2018-12-28 10:40] VITALS: BP 136/65; TEMP 99.2
== END 2018-12-28 15:17 | disposition home or self-care (01) ==
LOC: ONC/OP 08:15
PROVIDERS: ATTEND Internal Medicine Hematology & Oncology
DX: Z51.11 Encounter for antineoplastic chemotherapy (principal); C25.1 Malignant neoplasm of body of pancreas; I10 Essential (primary) hypertension; E11.9 Type 2 diabetes mellitus without complications; I25.10 Atherosclerotic heart disease of native coronary artery without angina pectoris; I48.91 Unspecified atrial fibrillation; E78.5 Hyperlipidemia, unspecified; F41.9 Anxiety disorder, unspecified; F32.9 Major depressive disorder, single episode, unspecified; F17.220 Nicotine dependence, chewing tobacco, uncomplicated; M19.90 Unspecified osteoarthritis, unspecified site; Z90.710 Acquired absence of both cervix and uterus; Z98.51 Tubal ligation status; Z95.0 Presence of cardiac pacemaker; Z88.5 Allergy status to narcotic agent; Z79.82 Long term (current) use of aspirin; Z79.01 Long term (current) use of anticoagulants; Z79.84 Long term (current) use of oral hypoglycemic drugs; Z79.899 Other long term (current) drug therapy; Z98.890 Other specified postprocedural states
CPT/HCPCS: 96367; 96375; 96413; 96415; 96417; J0461; J0640; J1100; J1453; J2469; J7050; J7070; J9206; J9263

== ENCOUNTER 2018-12-31 13:27 | Day surgery (SDC) | payer MEDICARE, MEDICAID ==
[~2018-12-31 13:27] MED LIST changes: -Atropine Sulfate 0.25 MG in Sodium Chloride 0.9% 50 ML IVPB SCH; -Dexamethasone 20 MG in Sodium Chloride 0.9% 50 ML IVPB SCH; -Fosaprepitant Dimeglumine 150 MG in Sodium Chloride 0.9% 250 ML 150 ML IVPB SCH; -IRINOTECAN IVPB SCH; -LEUCOVORIN CALCIUM IVPB SCH; +PEGFILGRASTIM-JMDB 6 MG/0.6 ML SYRINGE SQ SCH; -Palonosetron HCl 0.25 MG in Sodium Chloride 0.9% 50 ML IVPB SCH; +Pegfilgrastim Onpro 6 MG/0.6 ML SQ SCH; -SODIUM CHLORIDE 0.9% IVPB SCH
[2018-12-31 13:31] VITALS: BP 125/70; TEMP 98.2
== END 2018-12-31 13:35 | disposition home or self-care (01) ==
LOC: ONC/OP 13:27
PROVIDERS: ATTEND Internal Medicine Hematology & Oncology
DX: Z51.11 Encounter for antineoplastic chemotherapy (principal); C25.1 Malignant neoplasm of body of pancreas; Z88.5 Allergy status to narcotic agent
CPT/HCPCS: 96372; 96377; J2505; Q5108

== ENCOUNTER 2019-01-11 10:39 | Day surgery (SDC) | payer MEDICARE, MEDICAID ==
[~2019-01-11 10:39] MED LIST changes: +Atropine Sulfate 0.25 MG in Sodium Chloride 0.9% 50 ML IVPB SCH; +Dexamethasone 20 MG in Sodium Chloride 0.9% 50 ML IVPB SCH; +Fosaprepitant Dimeglumine 150 MG in Sodium Chloride 0.9% 250 ML 150 ML IVPB SCH; +IRINOTECAN IVPB SCH; +LEUCOVORIN CALCIUM IVPB SCH; +PALONOSETRON HCL 0.05 MG/ML 5 ML VIAL IVP SCH; -PEGFILGRASTIM-JMDB 6 MG/0.6 ML SYRINGE SQ SCH; -Pegfilgrastim Onpro 6 MG/0.6 ML SQ SCH; +SODIUM CHLORIDE 0.9% IVPB SCH
[2019-01-11] MEDS ORDERED: Sodium Chloride 0.9% 30 ML ONE (11:01)
[2019-01-11 13:00] VITALS: BP 146/70; TEMP 98.4
== END 2019-01-11 16:26 | disposition home or self-care (01) ==
LOC: ONC/OP 10:39
PROVIDERS: ATTEND Internal Medicine Hematology & Oncology
DX: Z51.11 Encounter for antineoplastic chemotherapy (principal); C25.1 Malignant neoplasm of body of pancreas; Z88.5 Allergy status to narcotic agent; Z95.0 Presence of cardiac pacemaker
CPT/HCPCS: 36415; 80053; 82248; 83615; 84100; 84550; 85025; 96367; 96375; 96413; 96415; 96417; J0461; J0640; J1100; J1453; J2469; J7050; J7070; J9206; J9263

== ENCOUNTER 2019-01-14 14:40 | Day surgery (SDC) | payer MEDICARE, MEDICAID ==
[2019-01-14] MEDS ORDERED: PEGFILGRASTIM-JMDB 6 MG/0.6 ML SYRINGE SQ SCH (15:00)
[2019-01-14 15:11] VITALS: BP 149/73; TEMP 99
== END 2019-01-14 15:11 | disposition home or self-care (01) ==
LOC: ONC/OP 14:40
PROVIDERS: ATTEND Internal Medicine Hematology & Oncology
DX: Z51.11 Encounter for antineoplastic chemotherapy (principal); C25.1 Malignant neoplasm of body of pancreas; Z88.5 Allergy status to narcotic agent
CPT/HCPCS: 96372; Q5108

== ENCOUNTER 2019-01-25 07:40 | Day surgery (SDC) | payer MEDICARE, MEDICAID ==
[~2019-01-25 07:40] MED LIST changes: +Palonosetron HCl 0.25 MG in Sodium Chloride 0.9% 50 ML IVPB SCH
[2019-01-25] MEDS ORDERED: Sodium Chloride 0.9% 30 ML ONE (08:46)
[2019-01-25 10:59] VITALS: BP 117/60; TEMP 98.5
== END 2019-01-25 14:51 | disposition home or self-care (01) ==
LOC: ONC/OP 07:40
PROVIDERS: ATTEND Internal Medicine Hematology & Oncology
DX: Z51.11 Encounter for antineoplastic chemotherapy (principal); C25.1 Malignant neoplasm of body of pancreas; Z88.5 Allergy status to narcotic agent
CPT/HCPCS: 96367; 96375; 96413; 96415; 96417; J0461; J0640; J1100; J1453; J1642; J2469; J7050; J7070; J9206; J9263

== ENCOUNTER 2019-01-28 10:06 | Day surgery (SDC) | payer MEDICARE, MEDICAID ==
[~2019-01-28 10:06] MED LIST changes: -Atropine Sulfate 0.25 MG in Sodium Chloride 0.9% 50 ML IVPB SCH; -Dexamethasone 20 MG in Sodium Chloride 0.9% 50 ML IVPB SCH; -Fosaprepitant Dimeglumine 150 MG in Sodium Chloride 0.9% 250 ML 150 ML IVPB SCH; -IRINOTECAN IVPB SCH; -LEUCOVORIN CALCIUM IVPB SCH; -PALONOSETRON HCL 0.05 MG/ML 5 ML VIAL IVP SCH; +PEGFILGRASTIM-JMDB 6 MG/0.6 ML SYRINGE SQ SCH; -Palonosetron HCl 0.25 MG in Sodium Chloride 0.9% 50 ML IVPB SCH; -SODIUM CHLORIDE 0.9% IVPB SCH
[2019-01-28 11:24] VITALS: BP 102/63; TEMP 98
== END 2019-01-28 11:25 | disposition home or self-care (01) ==
LOC: ONC/OP 10:06
PROVIDERS: ATTEND Internal Medicine Hematology & Oncology
DX: Z51.11 Encounter for antineoplastic chemotherapy (principal); C25.1 Malignant neoplasm of body of pancreas
CPT/HCPCS: 80053; 82248; 83615; 84100; 84550; 96372; Q5108

== ENCOUNTER 2019-02-08 08:00 | Day surgery (SDC) | payer MEDICARE, MEDICAID ==
[~2019-02-08 08:00] MED LIST changes: +Atropine Sulfate 0.25 MG in Sodium Chloride 0.9% 50 ML IVPB SCH; +Dexamethasone Sod Phosphate 20 MG in Sodium Chloride 0.9% 50 ML IVPB SCH; +Fosaprepitant Dimeglumine 150 MG in Sodium Chloride 0.9% 250 ML 150 ML IVPB SCH; +IRINOTECAN IVPB SCH; +LEUCOVORIN CALCIUM IVPB SCH; -PEGFILGRASTIM-JMDB 6 MG/0.6 ML SYRINGE SQ SCH; +Palonosetron HCl 0.25 MG in Sodium Chloride 0.9% 50 ML IVPB SCH; +SODIUM CHLORIDE 0.9% IVPB SCH
[2019-02-08] MEDS ORDERED: Sodium Chloride 0.9% 20 ML ONE (08:26)
[2019-02-08 10:06] VITALS: BP 128/67; TEMP 98.6
== END 2019-02-08 14:51 | disposition home or self-care (01) ==
LOC: ONC/OP 08:00
PROVIDERS: ATTEND Internal Medicine Hematology & Oncology
DX: Z51.11 Encounter for antineoplastic chemotherapy (principal); C25.1 Malignant neoplasm of body of pancreas
CPT/HCPCS: 96367; 96375; 96413; 96415; 96417; J0461; J0640; J1100; J1453; J2469; J7050; J7070; J9206; J9263

== ENCOUNTER 2019-02-11 09:26 | Day surgery (SDC) | payer MEDICARE, MEDICAID ==
[~2019-02-11 09:26] MED LIST changes: -Atropine Sulfate 0.25 MG in Sodium Chloride 0.9% 50 ML IVPB SCH; -Dexamethasone Sod Phosphate 20 MG in Sodium Chloride 0.9% 50 ML IVPB SCH; -Fosaprepitant Dimeglumine 150 MG in Sodium Chloride 0.9% 250 ML 150 ML IVPB SCH; -IRINOTECAN IVPB SCH; -LEUCOVORIN CALCIUM IVPB SCH; +PEGFILGRASTIM-JMDB 6 MG/0.6 ML SYRINGE SQ SCH; -Palonosetron HCl 0.25 MG in Sodium Chloride 0.9% 50 ML IVPB SCH; -SODIUM CHLORIDE 0.9% IVPB SCH
[2019-02-11 09:45] VITALS: BP 118/57
== END 2019-02-11 09:31 | disposition home or self-care (01) ==
LOC: ONC/OP 09:26
PROVIDERS: ATTEND Internal Medicine Hematology & Oncology
DX: Z51.11 Encounter for antineoplastic chemotherapy (principal); C25.1 Malignant neoplasm of body of pancreas; Z88.5 Allergy status to narcotic agent
CPT/HCPCS: 96372; Q5108

== ENCOUNTER 2019-02-18 08:42 | Outpatient (CLI) | payer MEDICARE, MEDICAID ==
--- NOTE | 2019-02-18 10:19 | CT ---
CT THORAX WITH CONTRAST CT ABDOMEN WITH CONTRAST CT PELVIS WITH CONTRAST DATE: 02/18/2019 HISTORY: 79-year-old female with pancreatic cancer. Restaging after chemotherapy. COMPARISON: 08/01/2019 TECHNIQUE: IV administration of iodinated contrast media. Administration oral contrast media. Single phase scans of thorax, abdomen, and pelvis. FINDINGS: There are no suspicious pulmonary nodules. Lungs are essentially clear. No pleural effusion or pneumo thorax. No mediastinal or hilar lymphadenopathy. Mild increase in size of now small to moderate-sized pericardial effusion. No thoracic aortic aneurysm. Left subclavian pacemaker. There has been no significant interval change in the size of the mass of the pancreatic body. However , there are 2 new cystic lesions at the right edge of this mass. The larger of the 2 cystic lesions is approximately 2 cm. Again noted is the atrophic pancreatic tail with moderate diffuse dilation of the pancreatic duct at the atrophic tail. No evidence of malignant rohit hepatis, mesenteric, retroperitoneal, or iliac chain lymphadenopathy. Multiple left renal masses, many of intermediate den sity, are again noted. These are probably all hemorrhagic renal cysts. The largest one is approximately 4.5 x 6 x 4.5 cm. Small calculus at left renal upper pole. Fever and smaller cysts in t he right kidney. No hydronephrosis bilaterally. No abdominal aortic aneurysm. No convincing evidence of hepatic metastasis. No small bowel dilation. No adrenal mass. Normal spleen. No small bow el dilation. No signs of colonic diverticulitis. Normal, thin siddiqi of the urinary bladder. Interval increase in volume of small amount of free fluid within the dependent portion of the pelvic cavity, especially on the left side, compared to previously. Geographic mixed density lesions within the bilateral capital femoral epiphyses without collapse of femoral head contours. Unchanged. Otherwise no suspicious destructive osseous lesion. IMPRESSION: 1. Although the overall size of the neoplastic tumor mass at the body of the pancreas has not signifi cantly changed, there are 2 new cystic lesions at the right edge of the mass now. 2. Interval increase in volume of small amount of free fluid in the pelvis. 3. Interval increase in volume of pericardial effusion. 4. No convincing evidence of distant metastasis. 5. Multiple Bosniak category 2 left renal masses. These are probably hemorrhagic cysts. 6. 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
[2019-02-18] MEDS ORDERED: ISOVUE-370 76%-LOCM 1 ML ONE (16:19)
== END 2019-02-18 08:43 | disposition home or self-care (01) ==
LOC: BICCT 08:42
PROVIDERS: ATTEND Internal Medicine Hematology & Oncology
DX: C25.1 Malignant neoplasm of body of pancreas (principal); J44.1 Chronic obstructive pulmonary disease with (acute) exacerbation; I31.3 Pericardial effusion (noninflammatory); K86.9 Disease of pancreas, unspecified; N28.89 Other specified disorders of kidney and ureter; M87.9 Osteonecrosis, unspecified
CPT/HCPCS: 71260; 74177; Q9966

== ENCOUNTER 2019-02-22 07:59 | Day surgery (SDC) | payer MEDICARE, MEDICAID ==
[~2019-02-22 07:59] MED LIST changes: +Atropine Sulfate 0.25 MG in Sodium Chloride 0.9% 50 ML IVPB SCH; +Dexamethasone Sod Phosphate 20 MG in Sodium Chloride 0.9% 50 ML IVPB SCH; +Fosaprepitant Dimeglumine 150 MG in Sodium Chloride 0.9% 250 ML 145 ML IVPB SCH; +IRINOTECAN IVPB SCH; +LEUCOVORIN CALCIUM IVPB SCH; -PEGFILGRASTIM-JMDB 6 MG/0.6 ML SYRINGE SQ SCH; +Palonosetron HCl 0.25 MG in Sodium Chloride 0.9% 50 ML IVPB SCH; +SODIUM CHLORIDE 0.9% IVPB SCH
[2019-02-22] MEDS ORDERED: Sodium Chloride 0.9% 20 ML ONE (08:47)
[2019-02-22 09:01] VITALS: BP 110/58; TEMP 98.4
== END 2019-02-22 16:00 | disposition home or self-care (01) ==
LOC: ONC/OP 07:59
PROVIDERS: ATTEND Internal Medicine Hematology & Oncology
DX: Z51.11 Encounter for antineoplastic chemotherapy (principal); C25.1 Malignant neoplasm of body of pancreas; Z88.5 Allergy status to narcotic agent
CPT/HCPCS: 96367; 96375; 96413; 96415; 96417; J0461; J0640; J1100; J1453; J2469; J7050; J7070; J9206; J9263

== ENCOUNTER 2019-02-25 09:45 | Day surgery (SDC) | payer MEDICARE, MEDICAID ==
[~2019-02-25 09:45] MED LIST changes: -Atropine Sulfate 0.25 MG in Sodium Chloride 0.9% 50 ML IVPB SCH; -Dexamethasone Sod Phosphate 20 MG in Sodium Chloride 0.9% 50 ML IVPB SCH; -Fosaprepitant Dimeglumine 150 MG in Sodium Chloride 0.9% 250 ML 145 ML IVPB SCH; -IRINOTECAN IVPB SCH; -LEUCOVORIN CALCIUM IVPB SCH; +PEGFILGRASTIM-JMDB 6 MG/0.6 ML SYRINGE SQ SCH; -Palonosetron HCl 0.25 MG in Sodium Chloride 0.9% 50 ML IVPB SCH; -SODIUM CHLORIDE 0.9% IVPB SCH
[2019-02-25 10:01] VITALS: BP 122/64; TEMP 98.3
== END 2019-02-25 14:58 | disposition home or self-care (01) ==
LOC: ONC/OP 09:45
PROVIDERS: ATTEND Internal Medicine Hematology & Oncology
DX: Z51.11 Encounter for antineoplastic chemotherapy (principal); C25.1 Malignant neoplasm of body of pancreas; Z88.5 Allergy status to narcotic agent
CPT/HCPCS: 96372; Q5108

== ENCOUNTER 2019-03-03 08:15 | Day surgery (SDC) | payer MEDICARE, MEDICAID ==
[2019-03-03] MEDS ORDERED: Sodium Chloride 0.9% 40 ML ONE (08:40)
[2019-03-03] MEDS ORDERED: Acetaminophen 500 MG TAB PO SCH (08:45)
[2019-03-03] MEDS ORDERED: diphenhydrAMINE 25 MG CAP PO SCH (08:45)
[2019-03-03 12:43] LABS: Hemoglobin 7.7 g/dL (12.0-16.0)
[2019-03-03 13:30] VITALS: TEMP 98.1
[2019-03-03 16:17] VITALS: BP 164/77
== END 2019-03-03 16:19 | disposition home or self-care (01) ==
LOC: ONC/OP 08:15
PROVIDERS: ATTEND Internal Medicine Hematology & Oncology
PROC: 30233R1 Transfusion of Nonautologous Platelets into Peripheral Vein, Percutaneous Approach (ICD-10-PCS; principal; 2019-03-03)
PROC: 30233N1 Transfusion of Nonautologous Red Blood Cells into Peripheral Vein, Percutaneous Approach (ICD-10-PCS; 2019-03-03)
DX: D64.9 Anemia, unspecified (principal); D69.6 Thrombocytopenia, unspecified; Z88.5 Allergy status to narcotic agent; Z79.82 Long term (current) use of aspirin; Z79.01 Long term (current) use of anticoagulants; Z79.84 Long term (current) use of oral hypoglycemic drugs; Z79.899 Other long term (current) drug therapy
CPT/HCPCS: 36430; 85014; 85018; 86850; 86900; 86901; J1642; P9016; Q0163

== ENCOUNTER 2019-03-08 07:54 | Day surgery (SDC) | payer MEDICARE, MEDICAID ==
[~2019-03-08 07:54] MED LIST changes: +Atropine Sulfate 0.25 MG in Sodium Chloride 0.9% 50 ML IVPB SCH; +Dexamethasone Sod Phosphate 20 MG in Sodium Chloride 0.9% 50 ML IVPB SCH; +Fosaprepitant Dimeglumine 150 MG in Sodium Chloride 0.9% 250 ML 150 ML IVPB SCH; +IRINOTECAN IVPB SCH; +LEUCOVORIN CALCIUM IVPB SCH; -PEGFILGRASTIM-JMDB 6 MG/0.6 ML SYRINGE SQ SCH; +Palonosetron HCl 0.25 MG in Sodium Chloride 0.9% 50 ML IVPB SCH; +SODIUM CHLORIDE 0.9% IVPB SCH; +Sodium Chloride 0.9% 1,000 ML IV SCH
[2019-03-08] MEDS ORDERED: Sodium Chloride 0.9% 20 ML ONE (08:42)
== END 2019-03-08 15:03 | disposition home or self-care (01) ==
LOC: ONC/OP 07:54
PROVIDERS: ATTEND Internal Medicine Hematology & Oncology
DX: Z51.11 Encounter for antineoplastic chemotherapy (principal); C25.1 Malignant neoplasm of body of pancreas; Z88.5 Allergy status to narcotic agent
CPT/HCPCS: 96361; 96367; 96375; 96413; 96415; 96417; J0461; J0640; J1100; J1453; J2469; J7050; J7070; J9206; J9263

== ENCOUNTER 2019-03-11 08:45 | Day surgery (SDC) | payer MEDICARE, MEDICAID ==
[~2019-03-11 08:45] MED LIST changes: -Atropine Sulfate 0.25 MG in Sodium Chloride 0.9% 50 ML IVPB SCH; -Dexamethasone Sod Phosphate 20 MG in Sodium Chloride 0.9% 50 ML IVPB SCH; -Fosaprepitant Dimeglumine 150 MG in Sodium Chloride 0.9% 250 ML 150 ML IVPB SCH; -IRINOTECAN IVPB SCH; -LEUCOVORIN CALCIUM IVPB SCH; +PEGFILGRASTIM-JMDB 6 MG/0.6 ML SYRINGE SQ SCH; -Palonosetron HCl 0.25 MG in Sodium Chloride 0.9% 50 ML IVPB SCH; -SODIUM CHLORIDE 0.9% IVPB SCH; -Sodium Chloride 0.9% 1,000 ML IV SCH
[2019-03-11 10:29] VITALS: BP 131/74; TEMP 97.7
== END 2019-03-11 10:34 | disposition home or self-care (01) ==
LOC: ONC/OP 08:45
PROVIDERS: ATTEND Internal Medicine Hematology & Oncology
DX: Z51.11 Encounter for antineoplastic chemotherapy (principal); C25.1 Malignant neoplasm of body of pancreas; Z88.5 Allergy status to narcotic agent; Z79.01 Long term (current) use of anticoagulants; Z79.4 Long term (current) use of insulin; Z79.899 Other long term (current) drug therapy
CPT/HCPCS: 96372; Q5108

== ENCOUNTER 2019-03-14 09:33 | Observation (INO) | payer MEDICARE, MEDICAID ==
[2019-03-14 10:31] LABS: ALT (SGPT) 17 U/L (8-55); AST (SGOT) 26 U/L (5-34); Albumin 3.5 g/dL (3.4-4.8); Alkaline Phosphatase 72 U/L (40-150); Anion Gap 14 mmol/L (10-20); BUN (Urea Nitrogen) 12 mg/dL (9.8-20.1); Bilirubin, Total 0.7 mg/dL (0.2-1.2); CK (CPK) 48 U/L (29-168); Calc. Creatinine Clearance 0 mL/min (70-130); Carbon Dioxide 22 mmol/L (23-31); Chloride 105 mmol/L (98-107); Estimated GFR-MDRD Greater than 90; Glucose 159 mg/dL (83-110); Potassium 3.1 mmol/L (3.5-5.1); Protein, Total 5.5 g/dL (6.0-8.3); Sodium 138 mmol/L (136-145)
[2019-03-14 10:34] LABS: #Lymphocytes 0.8 thou/uL (1.20-3.40); #Neutrophils 3.2 thou/uL (1.40-6.50); %Basophils 0.3 % (0.0-1.0); %Eosinophils 0.8 % (0.0-10.0); %Lymphocytes 19.6 % (21.0-51.0); %Monocytes 0.5 % (0.0-10.0); %Neutrophils 78.9 % (42.0-75.0); Anisocytosis SLIGHT = 6-15 cells (100X) (0-5/hpf); Hemoglobin 9.7 g/dL (12.0-16.0); MDiff Complete? YES; Mean Corpuscular HGB CONC 32.5 g/dL (32.0-36.0); Mean Corpuscular Hemoglobin 30.4 pg (27.0-31.0); Mean Corpuscular Volume 93.4 fL (78.0-98.0); Mean Platelet Volume 6.4 fL (7.4-10.4); Platelet Count 44 thou/uL (130-400); Platelet Morphology Comment Appears Decreased; RBC Distribution Width 16.3 % (11.5-14.5); Red Blood Cell (RBC) Count 3.19 mill/uL (4.20-5.40); White Blood Cell (WBC) Count 4.1 thou/uL (4.8-10.8)
[2019-03-14 10:40] LABS: Bilirubin Negative (Negative); Blood, Urine Negative (Negative); Clarity CLOUDY (Clear); Glucose, Urine (Dipstick) Negative (Negative); Leukocyte Moderate (Negative); Nitrite Negative (Negative); Protein, Urine (Dipstick) 30 mg/dL (Neg-Trace); Specific Gravity, Urine 1.013 (1.002-1.036); Urobilinogen 0.2 mg/dL (0.2-1.0)
[2019-03-14 10:44] LABS: Bacteria/HPF None Seen HPF (None Seen); Hyaline Casts/LPF 4-6 HYALINE CAST LPF (0-3 Hyaline); Pathc Cast-AUWi Flag 1.22 (0-2.49); RBC/HPF None Seen HPF (0-3); Renal Epithelial None Seen HPF (0-3); Transitional Epithelial NONE SEEN HPF (0-3); WBC/HPF 21-50 HPF (0-3)
[2019-03-14] MEDS ORDERED: Sodium Chloride 0.9% 100 ML ONE (10:50)
[2019-03-14] MEDS ORDERED: cefTRIAXone\\ROCEPHIN 1 GM VIAL ONE (10:50)
[2019-03-14] MEDS ORDERED: Albuterol Sulfate 2.5 mg/3 ml Neb ONE (11:29)
--- NOTE | 2019-03-14 12:33 | HP ---
PRIMARY CARE PROVIDER: Dr. Ornelas. HISTORY OF PRESENT ILLNESS: The patient had chemotherapy last week. Three days ago, she developed some anorexia, some weakness, some wooziness. She presents to the emergency room. It is pertinent she had colon cancer diagnosed in October of this year and has been started on chemotherapy in December. She states she usually feels bad after her chemotherapy. She was seen and evaluated in the emergency room, found to have T-wave inversions in the anterior leads and referred to the [facility]. PAST MEDICAL HISTORY: Colon cancer diagnosed in October of this year, history of sinus bradycardia, coronary artery disease with PCI, hypertension, and elevated cholesterol. CURRENT MEDICATIONS: 1. Lipitor 80 mg a day. 2. Creon. 3. Dronabinol 5 mg once a day. 4. Glipizide 5 mg a day. 5. Lisinopril 20 mg twice a day. 6. Amitriptyline 25 mg a day. 7. Eliquis 5 mg once a day. 8. Amlodipine 10 mg a day. 9. Zetia 10 mg a day. ALLERGIES: TO MORPHINE, IT "SHUTS MY BODY DOWN." PAST SURGICAL HISTORY: Tubal ligation and right subclavian MediPort in December of this year. FAMILY HISTORY: Sister of a myocardial infarction. Another sister has coronary artery disease, stroke, diabetes. She has an aunt and sister with diabetes. SOCIAL HISTORY: Single. Full code status. SonRoberto is next of kin. Nonsmoker, non-alcohol drinker. REVIEW OF SYSTEMS: GENERAL: No fainting, fevers, sweats, or chills. EYES: No double vision, blurred vision, or flashing lights. ENT: No ear pain or drainage. No nasal bleeding. No trouble swallowing. CARDIAC: No chest pain, orthopnea, or paroxysmal nocturnal dyspnea. RESPIRATION: No cough, wheezing, or asthma. GASTROINTESTINAL: No nausea or vomiting. She has occasional diarrhea. She has occasional vague abdominal discomfort. GENITOURINARY: No hematuria or dysuria. MUSCULOSKELETAL: No pain or swelling in her arms or legs. NEUROLOGICAL: No strokes, seizures, or focal weakness. PSYCHIATRIC: No anxiety or depression. SKIN: No bruising, bleeding, or rash. HEME/LYMPH: No tender or swollen knots in her arms, in her neck or groin. PHYSICAL EXAMINATION: GENERAL: She is alert woman, in no distress, whatsoever. VITAL SIGNS: Blood pressure 146/90, pulse 72, respirations 16, and temperature 99.1. HEENT: Examination of her head, eyes, ears, nose, and throat reveals pupils equal, round, and reactive. Bilateral arcus. Extraocular movements are intact. Sclerae are white. Tympanic membranes are clear. Nose is clear. Oral mucous membranes are wet. Dental hygiene is adequate. NECK: No jugular venous distention, adenopathy, or thyromegaly. CHEST: Clear to auscultation and percussion. HEART: Regular rate and rhythm. First and second heart sounds are clear. There are no appreciated murmurs or gallops. ABDOMEN: Soft. Bowel sounds are normal. No palpable mass or hepatosplenomegaly, etc. EXTREMITIES: No cyanosis, clubbing, or edema. PULSES: Carotid, radial, femoral, and dorsalis pedis pulses intact. SKIN: Warm and dry without bruises or rash. HEME/LYMPH: No tender or swollen lymph nodes in axilla, inguinal, or cervical area. NEUROLOGICAL: Cranial nerves 2 through 12 are intact. Moves all extremities. Sensations intact. IMAGING STUDIES: EKG shows regular sinus rhythm with T-wave inversions inferolaterally. LABORATORY DATA: Sodium 138, potassium 3.1, chloride 105, CO2 of 22, BUN 12, creatinine 0.72, and blood sugar 159. Troponin 0.025. CBC; white count 4.1, hemoglobin 9.7, and platelet count 44,000. ADMITTING DIAGNOSES: 1. Abnormal EKG. I have reviewed EKG reports for the past year and they all mention T-wave changes in fact and some significant T-wave inversion is related. 2. Pancytopenia secondary to chemotherapy. 3. Pancreatic cancer. 4. Weakness. 5. Urinary tract infection. 6. Hypertension. 7. Diabetes mellitus type 2. 8. Dyslipidemia. 9. Coronary artery disease. PLAN: We will repeat EKG in the morning. We will do serial enzymes. The patient is on Eliquis. This will be continued. Accu-Cheks, sliding scale, and usual home medicines will be continued. I suspect this lady will be able to be discharged tomorrow if the only reason I was called for admission is the abnormal EKG. Job ID: [id number]
[2019-03-14] MEDS ORDERED: Dextrose 5% in Water 1,000 ML IV PRN (12:42)
[2019-03-14] MEDS ORDERED: Ondansetron ODT 4 MG TAB PO PRN (12:42)
[2019-03-14] MEDS ORDERED: HumaLOG 300 UNITS/3 ML VIAL SC PRN (12:42)
[2019-03-14] MEDS ORDERED: Dextrose 50% Abboject 50 ML SYRINGE SLOW IVP PRN (12:42)
[2019-03-14] MEDS ORDERED: Acetaminophen 325 MG TAB PO PRN (12:42)
[2019-03-14] MEDS ORDERED: Zolpidem Tartrate 5 MG TAB PO PRN (12:42)
[2019-03-14 12:57] VITALS: BMI 19.6
[2019-03-14] MEDS: Sodium Chloride 0.9% 1,000 ML IV SCH ×2 (13:07→21:45)
[2019-03-14 14:17] LABS: Troponin I 0.029 ng/mL (< 0.028)
[2019-03-14 17:10] LABS: Troponin I 0.039 ng/mL (< 0.028)
[2019-03-14] MEDS ORDERED: Acetaminophen/Codeine 30-300mg Tablet PO PRN (17:38)
[2019-03-14] MEDS: Apixaban 5 MG TAB PO SCH (19:59)
[2019-03-14] MEDS: Lisinopril 20 MG TAB PO SCH (20:00)
[2019-03-14] MEDS ORDERED: Atorvastatin Calcium 40 MG TAB PO SCH (21:00)
[2019-03-14] MEDS ORDERED: Amitriptyline HCl 25 MG TAB PO SCH (21:00)
[2019-03-14] MEDS ORDERED: Ezetimibe 10 MG TAB PO SCH (21:00)
[2019-03-15] MEDS: Sodium Chloride 0.9% 1,000 ML IV SCH ×2 (05:42→12:15)
[2019-03-15 06:22] LABS: Anion Gap 13 mmol/L (10-20); BUN (Urea Nitrogen) 5 mg/dL (9.8-20.1); Calc. Creatinine Clearance 73 mL/min (70-130); Calcium 7.7 mg/dL (7.8-10.44); Carbon Dioxide 21 mmol/L (23-31); Chloride 107 mmol/L (98-107); Estimated GFR-MDRD Greater than 90; Glucose 99 mg/dL (83-110); Sodium 138 mmol/L (136-145)
[2019-03-15 06:24] LABS: Potassium 2.8 mmol/L (3.5-5.1)
[2019-03-15 06:25] LABS: #Lymphocytes 0.8 thou/uL (1.20-3.40); #Monocytes 0.1 thou/uL (0.11-0.59); #Neutrophils 0.8 thou/uL (1.40-6.50); %Basophils 0.1 % (0.0-1.0); %Eosinophils 1.6 % (0.0-10.0); %Lymphocytes 45.3 % (21.0-51.0); %Monocytes 4.4 % (0.0-10.0); %Neutrophils 48.7 % (42.0-75.0); Hemoglobin 9.4 g/dL (12.0-16.0); MDiff Complete? YES; Mean Corpuscular HGB CONC 32.3 g/dL (32.0-36.0); Mean Corpuscular Hemoglobin 30.5 pg (27.0-31.0); Mean Corpuscular Volume 94.4 fL (78.0-98.0); Mean Platelet Volume 8.7 fL (7.4-10.4); Platelet Count 34 thou/uL (130-400); Platelet Morphology Comment Appears Decreased; RBC Distribution Width 15.9 % (11.5-14.5); Red Blood Cell (RBC) Count 3.09 mill/uL (4.20-5.40); Schistocytes SLIGHT = 2-5 cells (100X) (0-1/hpf); Tear Drops SLIGHT = 2-5 cells (100X) (0-1/hpf); White Blood Cell (WBC) Count 1.7 thou/uL (4.8-10.8)
[2019-03-15] MEDS: Potassium Chloride 20 MEQ TAB PO SCH ×2 (07:31→09:10)
[2019-03-15] MEDS: Lisinopril 20 MG TAB PO SCH (07:31)
[2019-03-15] MEDS: Apixaban 5 MG TAB PO SCH (07:32)
[2019-03-15] MEDS: Pancrelipase DR 12000 1 CAP PO SCH ×2 (07:32→11:08)
[2019-03-15] MEDS ORDERED: glipiZIDE 5 MG TAB PO SCH (08:00)
[2019-03-15] MEDS ORDERED: Fish Oil 1,000 MG CAP PO SCH (09:00)
[2019-03-15] MEDS ORDERED: Dronabinol 2.5 MG CAP PO SCH (09:00)
[2019-03-15] MEDS ORDERED: Amlodipine 10 MG TAB PO SCH (09:00)
[2019-03-15 13:43] LABS: Potassium 3.4 mmol/L (3.5-5.1)
[2019-03-15 15:54] VITALS: BP 140/75; TEMP 98.7
[2019-03-15] MEDS ORDERED: Apixaban 5 MG TAB PO SCH (21:00)
== END 2019-03-15 16:04 | disposition home or self-care (01) ==
LOC: ERS 09:33 → 2SW 11:03
PROVIDERS: ADMIT Internal Medicine; ATTEND Internal Medicine
DX: R94.31 Abnormal electrocardiogram [ECG] [EKG] (principal); D61.810 Antineoplastic chemotherapy induced pancytopenia; T45.1X5A Adverse effect of antineoplastic and immunosuppressive drugs, initial encounter; N39.0 Urinary tract infection, site not specified; I10 Essential (primary) hypertension; E11.9 Type 2 diabetes mellitus without complications; E78.5 Hyperlipidemia, unspecified; I25.10 Atherosclerotic heart disease of native coronary artery without angina pectoris; C18.9 Malignant neoplasm of colon, unspecified; Z79.01 Long term (current) use of anticoagulants; Z79.84 Long term (current) use of oral hypoglycemic drugs; Z79.899 Other long term (current) drug therapy; Z88.5 Allergy status to narcotic agent
CPT/HCPCS: 80048; 80053; 82550; 82962 ×2; 84132; 84484 ×2; 85025 ×2; 87086; 93005; 94640; 96361 ×3; 96365; 99285; G0378 ×2; 36415; 36416; 81003; 81015; J0696; J3490; J7611; Q0167

== ENCOUNTER 2019-03-22 07:57 | Day surgery (SDC) | payer MEDICARE, MEDICAID ==
[~2019-03-22 07:57] MED LIST changes: +Atropine Sulfate 0.25 MG in Sodium Chloride 0.9% 50 ML IVPB SCH; +Dexamethasone Sod Phosphate 20 MG in Sodium Chloride 0.9% 50 ML IVPB SCH; +Fosaprepitant Dimeglumine 150 MG in Sodium Chloride 0.9% 250 ML 150 ML IVPB SCH; +IRINOTECAN IVPB SCH; +LEUCOVORIN CALCIUM IVPB SCH; -PEGFILGRASTIM-JMDB 6 MG/0.6 ML SYRINGE SQ SCH; +Palonosetron HCl 0.25 MG in Sodium Chloride 0.9% 50 ML IVPB SCH; +SODIUM CHLORIDE 0.9% IVPB SCH
[2019-03-22] MEDS ORDERED: Sodium Chloride 0.9% 20 ML ONE (08:44)
[2019-03-22 09:16] VITALS: BP 133/75; TEMP 97.7
== END 2019-03-22 15:47 | disposition home or self-care (01) ==
LOC: ONC/OP 07:57
PROVIDERS: ATTEND Internal Medicine Hematology & Oncology
DX: Z51.11 Encounter for antineoplastic chemotherapy (principal); C25.1 Malignant neoplasm of body of pancreas; Z88.5 Allergy status to narcotic agent
CPT/HCPCS: 96367; 96375; 96413; 96415; 96417; J0461; J0640; J1100; J1453; J2469; J7050; J7070; J9206; J9263

== ENCOUNTER 2019-03-25 09:15 | Day surgery (SDC) | payer MEDICARE, MEDICAID ==
[~2019-03-25 09:15] MED LIST changes: -Atropine Sulfate 0.25 MG in Sodium Chloride 0.9% 50 ML IVPB SCH; -Dexamethasone Sod Phosphate 20 MG in Sodium Chloride 0.9% 50 ML IVPB SCH; -Fosaprepitant Dimeglumine 150 MG in Sodium Chloride 0.9% 250 ML 150 ML IVPB SCH; -IRINOTECAN IVPB SCH; -LEUCOVORIN CALCIUM IVPB SCH; +PEGFILGRASTIM-JMDB 6 MG/0.6 ML SYRINGE SQ SCH; -Palonosetron HCl 0.25 MG in Sodium Chloride 0.9% 50 ML IVPB SCH; -SODIUM CHLORIDE 0.9% IVPB SCH
[2019-03-25 09:33] VITALS: BP 116/71; TEMP 97.5
== END 2019-03-25 09:34 | disposition home or self-care (01) ==
LOC: ONC/OP 09:15
PROVIDERS: ATTEND Internal Medicine Hematology & Oncology
DX: Z51.11 Encounter for antineoplastic chemotherapy (principal); C25.1 Malignant neoplasm of body of pancreas; Z88.5 Allergy status to narcotic agent
CPT/HCPCS: 80053; 80061; 82306; 83036; 84439; 84443; 96372; Q5108

== ENCOUNTER 2019-04-05 08:28 | Day surgery (SDC) | payer MEDICARE, MEDICAID ==
[~2019-04-05 08:28] MED LIST changes: +Atropine Sulfate 0.25 MG in Sodium Chloride 0.9% 50 ML IVPB SCH; +Dexamethasone Sod Phosphate 20 MG in Sodium Chloride 0.9% 50 ML IVPB SCH; +Fosaprepitant Dimeglumine 150 MG in Sodium Chloride 0.9% 250 ML 150 ML IVPB SCH; +IRINOTECAN IVPB SCH; +LEUCOVORIN CALCIUM IVPB SCH; -PEGFILGRASTIM-JMDB 6 MG/0.6 ML SYRINGE SQ SCH; +Palonosetron HCl 0.25 MG in Sodium Chloride 0.9% 50 ML IVPB SCH; +SODIUM CHLORIDE 0.9% IVPB SCH
[2019-04-05] MEDS ORDERED: Sodium Chloride 0.9% 20 ML ONE ×2 (08:36→11:16)
[2019-04-05 08:58] VITALS: BP 138/64; TEMP 97.7
[2019-04-05] MEDS ORDERED: Sodium Chloride 0.9% 1,000 ML IV SCH (10:45)
== END 2019-04-05 15:15 | disposition home or self-care (01) ==
LOC: ONC/OP 08:28
PROVIDERS: ATTEND Internal Medicine Hematology & Oncology
DX: Z51.11 Encounter for antineoplastic chemotherapy (principal); C25.1 Malignant neoplasm of body of pancreas; Z88.5 Allergy status to narcotic agent
CPT/HCPCS: 96367; 96375; 96413; 96415; 96417; J0461; J0640; J1100; J1453; J2469; J7050; J7070; J9206; J9263

== ENCOUNTER 2019-04-08 10:44 | Day surgery (SDC) | payer MEDICARE, MEDICAID ==
[2019-04-08] MEDS ORDERED: PEGFILGRASTIM-JMDB 6 MG/0.6 ML SYRINGE SQ SCH (11:15)
[2019-04-08 14:00] VITALS: BP 127/78; TEMP 98.4
== END 2019-04-08 14:01 | disposition home or self-care (01) ==
LOC: ONC/OP 10:44
PROVIDERS: ATTEND Internal Medicine Hematology & Oncology
DX: Z51.11 Encounter for antineoplastic chemotherapy (principal); C25.1 Malignant neoplasm of body of pancreas; Z88.5 Allergy status to narcotic agent
CPT/HCPCS: 96372

== ENCOUNTER 2019-04-14 08:11 | Day surgery (SDC) | payer MEDICARE, MEDICAID ==
[2019-04-13 14:57] VITALS: BMI 17.2
[2019-04-14 08:54] LABS: INR-International Normal Ratio 1.1; PTT 26.3 SEC (22.9-36.1); Prothrombin Time 13.7 SEC (12.0-14.7)
[2019-04-14 08:59] LABS: Hemoglobin 7.4 g/dL (12.0-16.0); Mean Corpuscular HGB CONC 33.4 g/dL (32.0-36.0); Mean Corpuscular Hemoglobin 31.2 pg (27.0-31.0); Mean Corpuscular Volume 93.5 fL (78.0-98.0); Mean Platelet Volume 16.4 fL (7.4-10.4); Platelet Count 10 thou/uL (130-400); RBC Distribution Width 17.1 % (11.5-14.5); Red Blood Cell (RBC) Count 2.37 mill/uL (4.20-5.40); White Blood Cell (WBC) Count 0.8 thou/uL (4.8-10.8)
[2019-04-14 09:35] LABS: Band 4 % (5-11); Bite Cells SLIGHT = 2-5 cells (100X) (0-1/hpf); Lymphocytes 60 % (21-51); MDiff Complete? YES; Monocytes 12 % (0-10); Neutrophil 24 % (42-75); Platelet Morphology Comment Appears Decreased; Polychromasia SLIGHT = 2-3 cells (100X) (0-2/hpf); Schistocytes SLIGHT = 2-5 cells (100X) (0-1/hpf); Tear Drops MODERATE= 6-15 cells (100X) (0-1/hpf)
[2019-04-14] MEDS ORDERED: Acetaminophen 500 MG TAB PO SCH (10:15)
[2019-04-14] MEDS ORDERED: diphenhydrAMINE 25 MG CAP PO SCH (10:15)
[2019-04-14] MEDS ORDERED: Sodium Chloride 0.9% 20 ML ONE (11:34)
[2019-04-14 12:02] VITALS: BP 145/83; TEMP 97.7
== END 2019-04-14 15:55 | disposition home or self-care (01) ==
LOC: ULT 08:11 → EDSTATUS 09:00 → ONC/OP 15:55
PROC: 30233R1 Transfusion of Nonautologous Platelets into Peripheral Vein, Percutaneous Approach (ICD-10-PCS; principal; 2019-04-14)
DX: D64.9 Anemia, unspecified (principal); D69.6 Thrombocytopenia, unspecified; Z88.5 Allergy status to narcotic agent
CPT/HCPCS: 36415; 36430; 36591; 85025; 85610; 85730; 86900; 86901; J1642; P9035; Q0163

== ENCOUNTER 2019-04-18 09:57 | Day surgery (SDC) | payer MEDICARE, MEDICAID ==
[2019-04-15 15:45] VITALS: BMI 17.2
[2019-04-18 10:15] LABS: Mean Corpuscular HGB CONC 32.6 g/dL (32.0-36.0); Mean Corpuscular Hemoglobin 31.2 pg (27.0-31.0); Mean Corpuscular Volume 95.5 fL (78.0-98.0); Mean Platelet Volume 8.8 fL (7.4-10.4); Platelet Count 55 thou/uL (130-400); RBC Distribution Width 18.6 % (11.5-14.5); Red Blood Cell (RBC) Count 2.55 mill/uL (4.20-5.40)
[2019-04-18] MEDS ORDERED: Sodium Chloride 0.9% 10 ML ONE (10:31)
[2019-04-18] MEDS ORDERED: Sodium Bicarbonate 2.5 MEQ/5 ML VIAL ONE (10:32)
[2019-04-18 10:49] LABS: Band 12 % (5-11); Bite Cells SLIGHT = 2-5 cells (100X) (0-1/hpf); Lymphocytes 12 % (21-51); MDiff Complete? YES; Monocytes 7 % (0-10); Neutrophil 69 % (42-75); Nucleated RBC 2 % (0); Platelet Morphology Comment Appears Decreased; Polychromasia MODERATE = 3-4 cells (100X) (0-2/hpf); Schistocytes MODERATE= 6-15 cells (100X) (0-1/hpf); Tear Drops MODERATE= 6-15 cells (100X) (0-1/hpf)
[2019-04-18 12:49] VITALS: BP 144/93; TEMP 95
--- NOTE | 2019-04-18 13:20 | ULT ---
EXAM: Ultrasound-guided biopsy/fine-needle aspiration of superficial mass the level of the umbilicus PROVIDED CLINICAL HISTORY: Pancreatic adenocarcinoma with enlarging mass at the level of the umbilicus. COMPARISON: Abdominal wall mass the level of the umbilicus. Biopsy was requested. TECHNIQUE: After informed consent was obtained, the patient was placed on the sonography table in the supine pos ition. Sonographic evaluation of the mass at the level of the umbilicus was performed. An area was marked and then meticulously prepped and draped in the usual sterile fashion. The skin and subcutaneous tissues were infiltrated with buffered 1% lidocaine for local anesthesia. A small skin incision was made. Utilizing concurrent real-time ultrasound guidance, a 20-gauge biopsy needle was advanced, and a biopsy was obtained. However, the biopsy yielded no tissue within t he specimen. As result, an 18-gauge core needle biopsy device was utilized, but again, no tissue was obtained with 2 separate 18-gauge core needle biopsy specimens. As result, a total of 3 fine-need le aspiration specimens were obtained utilizing a 25-gauge needle and concurrent real time ultrasound guidance. Postprocedure images demonstrate no fluid or hematoma adjacent to the mass at the level of the umbili cus. The patient tolerated the procedure well and without immediate complication. Dry sterile dressing was placed at biopsy site. Patient was transported to radiology nurses holding area for further monitoring prior to discharge. IMPRESSION: 1. Core needle biopsies of the mass at the umbilicus were attempted with a 20-gauge as well as 18-gau ge core needle biopsy, but each time biopsies were obtained, the biopsy specimens did not yield a specimen. 2. Technically successful ultrasound-guided fine-needle aspiration of the mass at the level of the um bilicus. Pathology is currently pending.
== END 2019-04-18 12:45 | disposition home or self-care (01) ==
LOC: ULT 09:57
PROC: 0W9J3ZX Drainage of Pelvic Cavity, Percutaneous Approach, Diagnostic (ICD-10-PCS; principal; 2019-04-18)
DX: C44.509 Unspecified malignant neoplasm of skin of other part of trunk (principal); C25.0 Malignant neoplasm of head of pancreas; C25.1 Malignant neoplasm of body of pancreas; I10 Essential (primary) hypertension; I25.10 Atherosclerotic heart disease of native coronary artery without angina pectoris; E11.9 Type 2 diabetes mellitus without complications; F41.9 Anxiety disorder, unspecified; F32.9 Major depressive disorder, single episode, unspecified; I48.91 Unspecified atrial fibrillation; E78.5 Hyperlipidemia, unspecified; Z95.5 Presence of coronary angioplasty implant and graft; Z88.5 Allergy status to narcotic agent; Z79.01 Long term (current) use of anticoagulants; Z79.899 Other long term (current) drug therapy
CPT/HCPCS: 36415; 76999; 85025; 88173; 88313

== ENCOUNTER 2019-04-26 09:26 | Day surgery (SDC) | payer MEDICARE, MEDICAID ==
[~2019-04-26 09:26] MED LIST changes: +Dexamethasone 20 MG in Sodium Chloride 0.9% 50 ML IVPB SCH; -Dexamethasone Sod Phosphate 20 MG in Sodium Chloride 0.9% 50 ML IVPB SCH
[2019-04-26] MEDS ORDERED: Sodium Chloride 0.9% 20 ML ONE (09:50)
[2019-04-26] MEDS ORDERED: Atropine Sulfate 0.25 MG in Sodium Chloride 0.9% 50 ML IVPB SCH (10:30)
[2019-04-26 11:51] VITALS: BP 137/86; TEMP 98.5
== END 2019-04-26 16:41 | disposition home or self-care (01) ==
LOC: ONC/OP 09:26
PROVIDERS: ATTEND Internal Medicine Hematology & Oncology
DX: Z51.11 Encounter for antineoplastic chemotherapy (principal); C25.1 Malignant neoplasm of body of pancreas; Z88.5 Allergy status to narcotic agent
CPT/HCPCS: 36415; 80053; 82248; 83615; 84100; 84550; 96361; 96367; 96375; 96413; 96415; 96417; J0461; J0640; J1100; J1453; J2469; J7050; J7070; J9206; J9263

== ENCOUNTER 2019-04-29 10:38 | Day surgery (SDC) | payer MEDICARE, MEDICAID ==
[~2019-04-29 10:38] MED LIST changes: -Atropine Sulfate 0.25 MG in Sodium Chloride 0.9% 50 ML IVPB SCH; -Dexamethasone 20 MG in Sodium Chloride 0.9% 50 ML IVPB SCH; -Fosaprepitant Dimeglumine 150 MG in Sodium Chloride 0.9% 250 ML 150 ML IVPB SCH; -IRINOTECAN IVPB SCH; -LEUCOVORIN CALCIUM IVPB SCH; +PEGFILGRASTIM-JMDB 6 MG/0.6 ML SYRINGE SQ SCH; -Palonosetron HCl 0.25 MG in Sodium Chloride 0.9% 50 ML IVPB SCH; -SODIUM CHLORIDE 0.9% IVPB SCH
== END 2019-04-29 11:43 | disposition home or self-care (01) ==
LOC: ONC/OP 10:38
PROVIDERS: ATTEND Internal Medicine Hematology & Oncology
DX: Z51.11 Encounter for antineoplastic chemotherapy (principal); C25.1 Malignant neoplasm of body of pancreas; Z88.5 Allergy status to narcotic agent
CPT/HCPCS: 96372; Q5108

== ENCOUNTER 2019-04-30 11:41 | Emergency (ER) | payer MEDICARE, MEDICAID ==
[2019-04-30] MEDS ORDERED: Dexamethasone 4 mg/ml Vial ONE (12:21)
[2019-04-30] MEDS ORDERED: Ondansetron PF 4 MG/2 ML Vial ONE (12:21)
[2019-04-30 12:37] LABS: Hemoglobin 6.5 g/dL (12.0-16.0); Mean Corpuscular Hemoglobin 31.5 pg (27.0-31.0); Mean Platelet Volume 8.6 fL (7.4-10.4); Platelet Count 110 thou/uL (130-400); Red Blood Cell (RBC) Count 2.05 mill/uL (4.20-5.40); White Blood Cell (WBC) Count 29.1 thou/uL (4.8-10.8)
[2019-04-30 12:57] LABS: ALT (SGPT) 15 U/L (8-55); AST (SGOT) 31 U/L (5-34); Albumin 2.9 g/dL (3.4-4.8); Alkaline Phosphatase 72 U/L (40-150); Anion Gap 12 mmol/L (10-20); BUN (Urea Nitrogen) 19 mg/dL (9.8-20.1); Bilirubin, Total 0.7 mg/dL (0.2-1.2); Calc. Creatinine Clearance 0 mL/min (70-130); Calcium 6.9 mg/dL (7.8-10.44); Carbon Dioxide 22 mmol/L (23-31); Chloride 106 mmol/L (98-107); Estimated GFR-MDRD 82; Globulin 2.2 g/dL (2.4-3.5); Glucose 97 mg/dL (83-110); Potassium 3.2 mmol/L (3.5-5.1); Protein, Total 5.1 g/dL (6.0-8.3); Sodium 137 mmol/L (136-145)
[2019-04-30 13:00] LABS: Anisocytosis SLIGHT = 6-15 cells (100X) (0-5/hpf); Band 6 % (5-11); Lymphocytes 1 % (21-51); MDiff Complete? YES; Monocytes 2 % (0-10); Neutrophil 91 % (42-75); Ovalocytes SLIGHT = 2-5 cells (100X) (0-1/hpf); Platelet Morphology Comment Appears Decreased; Poikilocytosis SLIGHT = 6-15 cells (100X) (0-5/hpf); Polychromasia SLIGHT = 2-3 cells (100X) (0-2/hpf); Schistocytes SLIGHT = 2-5 cells (100X) (0-1/hpf); Tear Drops SLIGHT = 2-5 cells (100X) (0-1/hpf)
== END 2019-04-30 17:47 | disposition home or self-care (01) ==
LOC: ERS 11:41
DX: D64.9 Anemia, unspecified (principal); R19.7 Diarrhea, unspecified; E11.9 Type 2 diabetes mellitus without complications; I25.10 Atherosclerotic heart disease of native coronary artery without angina pectoris; I48.91 Unspecified atrial fibrillation; E78.5 Hyperlipidemia, unspecified; I10 Essential (primary) hypertension; F41.9 Anxiety disorder, unspecified; F32.9 Major depressive disorder, single episode, unspecified; Z79.899 Other long term (current) drug therapy; Z79.01 Long term (current) use of anticoagulants; Z79.84 Long term (current) use of oral hypoglycemic drugs
CPT/HCPCS: 36430; 80053; 85025; 86850; 86900; 86901; 86920; P9016; 36415; 96361; 96374; 96375; J1100; J2405

== ENCOUNTER 2019-05-12 09:11 | Outpatient (CLI) | payer MEDICARE, MEDICAID ==
--- NOTE | 2019-05-12 11:09 | CT ---
EXAM: CT of the chest with contrast CT of the abdomen and pelvis with contrast HISTORY: Pancreatic cancer status post treatment COMPARISON: 02/18/2019 TECHNIQUE: 1. Multiple contiguous axial images were obtained in a CT the chest with contrast. Coronal reformats were performed. 2. Multiple contiguous axial images were obtained and a CT of the abdomen and pelvis with contrast. C oronal reformats were performed. FINDINGS: CT CHEST: HEART: Small stable pericardial effusion. There is a pacemaker with its leads in the right atrium and ventricle. MEDIASTINUM: No hilar or mediastinal lymphadenopathy. LUNGS: No focal infiltrates, nodules, or masses. PLEURAL SPACE: No pneumothorax or pleural effusion. Left posterior pleural thickening. CHEST WALL SOFT TISSUES: Diffuse soft tissue anasarca. CT ABDOMEN/PELVIS: ABDOMEN: LIVER: within normal limits. BILE DUCTS: Normal caliber. GALLBLADDER: No calcified gallstones. Normal caliber wall. PANCREAS: There is stable nonmasslike fullness of the pancreatic body with atrophy of the tail. There are 2 stable cystic lesions at the junction of the pancreatic neck and body. The largest measures 1.9 cm in size. SPLEEN: within normal limits. ADRENALS: within normal limits. KIDNEYS: There is a stable 6.6 cm hyperdense lesion in the anterior aspect of the left kidney. A smal ler hyperdense lesion also emanates from the left kidney. Hypodense lesions in both kidneys likely represent cysts. There is a nonobstructing 3 to 4 mm left renal calcification. PELVIS: REPRODUCTIVE ORGANS: No pelvic masses. URETERS: within normal limits. BLADDER: within normal limits. PERITONEUM: No free air. Mild free fluid is seen in the pelvis. BOWEL: Normal caliber. MESENTERY AND RETROPERITONEUM: No enlarged mesenteric or retroperitoneal lymph nodes. VESSELS: Atherosclerotic calcifications. ABDOMINAL WALL: Diffuse soft tissue anasarca. OSSEOUS STRUCTURES: Degenerative changes in the spine. Increase density of both femoral heads likely represents bone infarctions. IMPRESSION: 1. Stable findings in the pancreas including pancreatic body fullness and 2 adjacent cystic lesions a s well as atrophy of the tail. 2. Bilateral renal cysts, some of which are hyperdense. 3. Nonobstructing left renal calcification
== END 2019-05-12 09:12 | disposition home or self-care (01) ==
LOC: BICCT 09:11
PROVIDERS: ATTEND Internal Medicine Hematology & Oncology
DX: C25.1 Malignant neoplasm of body of pancreas (principal); K86.2 Cyst of pancreas; K86.89 Other specified diseases of pancreas; N28.1 Cyst of kidney, acquired; N28.89 Other specified disorders of kidney and ureter
CPT/HCPCS: 71260; 74177

== ENCOUNTER 2019-05-17 08:03 | Day surgery (SDC) | payer MEDICARE, MEDICAID ==
[2019-05-17] MEDS ORDERED: IRINOTECAN IVPB SCH (08:30)
[2019-05-17] MEDS ORDERED: Atropine Sulfate 0.25 MG in Sodium Chloride 0.9% 50 ML IVPB SCH ×2 (08:30→09:30)
[2019-05-17] MEDS ORDERED: Dexamethasone 20 MG in Sodium Chloride 0.9% 50 ML IVPB SCH (08:30)
[2019-05-17] MEDS ORDERED: WATER IVPB SCH (08:30)
[2019-05-17] MEDS ORDERED: LEUCOVORIN CALCIUM IVPB SCH (08:30)
[2019-05-17] MEDS ORDERED: OXALIPLATIN IVPB SCH (08:30)
[2019-05-17] MEDS ORDERED: Palonosetron HCl 0.25 MG in Sodium Chloride 0.9% 50 ML IVPB SCH (08:30)
[2019-05-17] MEDS ORDERED: DEXTROSE 5% IVPB SCH (08:30)
[2019-05-17] MEDS ORDERED: SODIUM CHLORIDE 0.9% IVPB SCH ×2 (08:30)
[2019-05-17] MEDS ORDERED: Sodium Chloride 0.9% 1,000 ML IV SCH (08:30)
[2019-05-17] MEDS ORDERED: Sodium Chloride 0.9% 20 ML ONE (08:33)
[2019-05-17 09:14] VITALS: BP 141/93; TEMP 98.2
[2019-05-17] MEDS ORDERED: Dexamethasone Sod Phosphate 20 MG in Sodium Chloride 0.9% 50 ML IVPB SCH (09:30)
== END 2019-05-17 15:48 | disposition home or self-care (01) ==
LOC: ONC/OP 08:03
PROVIDERS: ATTEND Internal Medicine Hematology & Oncology
DX: Z51.11 Encounter for antineoplastic chemotherapy (principal); C25.1 Malignant neoplasm of body of pancreas; Z88.5 Allergy status to narcotic agent
CPT/HCPCS: 96361; 96367; 96375; 96413; 96415; 96417; J0461; J0640; J1100; J1453; J2469; J3490; J7050; J7070; J9206; J9263

== ENCOUNTER 2019-05-20 09:57 | Day surgery (SDC) | payer MEDICARE, MEDICAID ==
[2019-05-20 10:12] VITALS: BP 122/71; TEMP 97.5
== END 2019-05-20 10:12 | disposition home or self-care (01) ==
LOC: ONC/OP 09:57
PROVIDERS: ATTEND Internal Medicine Hematology & Oncology
DX: Z51.11 Encounter for antineoplastic chemotherapy (principal); C25.1 Malignant neoplasm of body of pancreas; Z88.5 Allergy status to narcotic agent
CPT/HCPCS: 96372; Q5108

== ENCOUNTER 2019-05-30 09:15 | Day surgery (SDC) | payer MEDICARE, MEDICAID ==
[2019-05-30] MEDS ORDERED: Sodium Chloride 0.9% 20 ML ONE (09:24)
[2019-05-30] MEDS ORDERED: diphenhydrAMINE 25 MG CAP PO SCH (10:30)
[2019-05-30] MEDS ORDERED: Acetaminophen 500 MG TAB PO SCH (10:30)
[2019-05-30] MEDS ORDERED: NS 0.9% w/ 20 MEQ KCL 1,000 ML IV SCH (12:45)
[2019-05-30 16:01] VITALS: BP 154/86; TEMP 98.8
== END 2019-05-30 16:06 | disposition home or self-care (01) ==
LOC: ONC/OP 09:15
PROVIDERS: ATTEND Internal Medicine Hematology & Oncology
DX: C25.1 Malignant neoplasm of body of pancreas (principal); Z88.5 Allergy status to narcotic agent
CPT/HCPCS: 36415; 36430; 36591; 80053; 82248; 83615; 84100; 84550; 86850; 86900; 86901; 96365; 96366; J1642; J3480; P9016; Q0163

== ENCOUNTER 2019-05-31 13:10 | Observation (INO) | payer MEDICARE, MEDICAID ==
[2019-05-31 14:54] VITALS: BMI 18.3
[2019-05-31] MEDS ORDERED: Ondansetron PF 4 MG/2 ML Vial IVP PRN (16:57)
[2019-05-31] MEDS ORDERED: Ondansetron ODT 4 MG TAB PO PRN (16:57)
[2019-05-31] MEDS ORDERED: Acetaminophen 325 MG TAB PO PRN (16:57)
[2019-05-31] MEDS ORDERED: HumaLOG 300 UNITS/3 ML VIAL SC PRN ×2 (17:19)
[2019-05-31] MEDS ORDERED: Dextrose 50% Abboject 50 ML SYRINGE SLOW IVP PRN (17:19)
[2019-05-31] MEDS ORDERED: Dextrose 5% in Water 1,000 ML IV PRN (17:19)
--- NOTE | 2019-05-31 18:35 | HP ---
CHIEF COMPLAINT: Hypokalemia, admitted at the behest of Dr. Parks. HISTORY OF PRESENT ILLNESS: Ms. Portillo is a pleasant 79-year-old female with past medical history significant for pancreatic cancer with metastasis diagnosed in November 2018, currently receiving chemotherapy q.2 weeks, followed by Dr. Parks; paroxysmal atrial fibrillation, anticoagulated with Eliquis; chronic anemia, and chronic hypokalemia, who presented to the hospital after the Oncology office called her, relaying that her potassium had not come up sufficiently with repletion yesterday. The patient was in the Oncology Clinic yesterday and received 2 units of packed red blood cells along with potassium. Her initial potassium level at that time was 2.1. Repeat potassium check this morning revealed a level of 2.3, and so she was called to present to the hospital for admission and more potassium supplementation. The patient actually feels at her baseline. She has had no chest pain or palpitations. She has a chronically poor appetite, but this has not changed. She has no specific complaints to me at this time. She denies any shortness of breath or weakness. Her son and daughter are at the bedside and provides some of the history as well. REVIEW OF SYSTEMS: A 12-point review of systems performed and is negative except that stated above. PAST MEDICAL/SURGICAL HISTORY: Metastatic pancreatic cancer as mentioned above, status post MediPort treatment and receiving chemotherapy q.2 weeks; symptomatic sinus bradycardia/sick sinus syndrome status post permanent pacemaker dual chamber implantation, coronary artery disease status post PCI in the remote past, hypertension with recently titrated blood pressure medications by Dr. uGallpa as the patient's blood pressure has been running on the low side, hyperlipidemia, paroxysmal atrial fibrillation, remote history of tubal ligation, and type 2 diabetes mellitus. SOCIAL HISTORY: The patient lives alone and independently, but does have home health and a gis technician who comes periodically. She has good support from her family. She is nonsmoker and nondrinker. She has 6 grown children and many grandchildren. She is a full code. ALLERGIES: MORPHINE. HOME MEDICATIONS: 1. Acetaminophen with codeine 300 mg/30 mg one tablet p.o. q.6 hours p.r.n. 2. Amitriptyline 25 mg p.o. at bedtime. 3. Eliquis 2.5 mg one tablet p.o. b.i.d. 4. Atorvastatin 80 mg p.o. at bedtime. 5. Dronabinol 5 mg capsule one capsule daily. 6. Zetia 10 mg p.o. at bedtime. 7. Glipizide 5 mg tablet, one-half tablet daily. 8. Pancreatic enzymes one capsule daily. 9. Potassium chloride 10 mEq daily. FAMILY HISTORY: Noncontributory. PHYSICAL EXAMINATION: VITAL SIGNS: Blood pressure is 136/86, pulse is 107, respiratory rate 24, O2 saturation is 96% on room air, temperature 98.2. GENERAL: This is a thin female, resting comfortably in bed, in no acute distress. HEENT: Head is atraumatic and normocephalic. Mucous membranes are moist. The patient has poor dentition. NECK: Trachea is midline. No JVD. CV: S1 and S2. No appreciable murmurs, rubs, or gallops. Regular rhythm. LUNGS: Regular respiratory rate and pattern. Clear to auscultation bilaterally. ABDOMEN: Positive bowel sounds. Soft, nontender. EXTREMITIES: Trace edema bilaterally. SKIN: Warm and dry. No rashes or abrasions. NEUROLOGIC: Cranial nerves 2 through 12 are grossly intact. The patient is nonfocal. LABORATORY DATA: No recent CBC present currently, recent chemistry; sodium 137, potassium is 2.3, chloride 103, carbon dioxide 23, anion gap 13, BUN 12, creatinine 1.05, glucose is 123, calcium is 7.7. ASSESSMENT: 1. Severe hypokalemia, 2.3 on arrival today. 2. Metastatic pancreatic cancer, currently receiving chemotherapy q.2 weeks, followed by Dr. Parks. 3. Coronary artery disease status post percutaneous coronary intervention in the past, stable. 4. Chronic anemia secondary to chemotherapy treatments, periodically requiring blood transfusions. 5. Paroxysmal atrial fibrillation, currently atrial paced rhythm, CHADS-VASc equals 6, anticoagulated with Eliquis. 6. Dual chamber pacemaker in-situ. 7. Type 2 diabetes mellitus. PLAN: We will access the patient's Mediport and replete potassium. The patient will require at least 80 mEq, run over an 8-hour period. We will recheck potassium in the morning. We will also obtain a CBC, and transfuse PRBC as necessary. The patient has no specific complaints to me at this time. DVT prophylaxis will be covered with the patient's Eliquis, which we will continue. We will add sliding scale insulin for diabetic coverage. Expect discharge tomorrow if her potassium levels recover. We will also monitor the patient carefully for any arrhythmias. EKG showed no sign of peaked T-waves or arrhythmia at this time. Job ID: [id number] MTDD
[2019-05-31 19:20] LABS: Anisocytosis MODERATE=16-30 cells (100X) (0-5/hpf); Band 9 % (5-11); Burr Cells SLIGHT = 2-5 cells (100X) (0-1/hpf); Dohle Bodies SLIGHT; Hemoglobin 10.4 g/dL (12.0-16.0); Lymphocytes 8 % (21-51); MDiff Complete? YES; Mean Corpuscular HGB CONC 33.1 g/dL (32.0-36.0); Mean Corpuscular Hemoglobin 32.6 pg (27.0-31.0); Mean Corpuscular Volume 98.2 fL (78.0-98.0); Mean Platelet Volume 11.7 fL (7.4-10.4); Monocytes 5 % (0-10); Neutrophil 78 % (42-75); Nucleated RBC 2 % (0); Platelet Count 42 thou/uL (130-400); Platelet Morphology Comment Appears Decreased; Poikilocytosis SLIGHT = 6-15 cells (100X) (0-5/hpf); Polychromasia MODERATE = 3-4 cells (100X) (0-2/hpf); RBC Distribution Width 19.2 % (11.5-14.5); Schistocytes SLIGHT = 2-5 cells (100X) (0-1/hpf); Spherocytes SLIGHT = 1-5 cells (100X) (None Seen); Toxic Granulation SLIGHT; Vacuoles SLIGHT; White Blood Cell (WBC) Count 22.6 thou/uL (4.8-10.8)
[2019-05-31] MEDS ORDERED: Atorvastatin Calcium 40 MG TAB PO SCH (21:00)
[2019-05-31] MEDS ORDERED: Amitriptyline HCl 25 MG TAB PO SCH (21:00)
[2019-05-31] MEDS ORDERED: Ezetimibe 10 MG TAB PO SCH (21:00)
[2019-05-31] MEDS: Apixaban 5 MG TAB PO SCH (21:29)
[2019-05-31 23:46] LABS: Hemoglobin 11.1 g/dL (12.0-16.0); Platelet Count 49 thou/uL (130-400)
[2019-06-01 05:08] LABS: Anion Gap 11 mmol/L (10-20); BUN (Urea Nitrogen) 8 mg/dL (9.8-20.1); Calc. Creatinine Clearance 49 mL/min (70-130); Calcium 7.6 mg/dL (7.8-10.44); Carbon Dioxide 21 mmol/L (23-31); Chloride 111 mmol/L (98-107); Estimated GFR-MDRD 85; Glucose 123 mg/dL (83-110); Potassium 3.2 mmol/L (3.5-5.1); Sodium 140 mmol/L (136-145)
[2019-06-01] MEDS: Acetaminophen/Codeine 30-300mg Tablet PO PRN ×2 (06:47→16:59)
[2019-06-01] MEDS ORDERED: NS 0.9% w/ 40 MEQ KCL 1,000 ML IV SCH (08:15)
[2019-06-01] MEDS: Apixaban 5 MG TAB PO SCH (08:42)
[2019-06-01] MEDS: Pancrelipase DR 12000 1 CAP PO SCH ×3 (08:42→16:56)
[2019-06-01] MEDS ORDERED: Dronabinol 2.5 MG CAP PO SCH (09:00)
[2019-06-01] MEDS ORDERED: Pot Chloride/Pot Bicarb/Cit Ac 25 mEq Effervescent Tablet PO SCH (11:30)
--- NOTE | 2019-06-01 12:26 | CON ---
DATE OF CONSULTATION: REASON FOR CONSULTATION: Pancreatic cancer and hypokalemia. HISTORY OF PRESENT ILLNESS: A 79-year-old female with metastatic pancreatic adenocarcinoma, currently on FOLFIRINOX chemotherapy, last received on 05/17/2019, presenting to the hospital with hypokalemia. The patient was seen in the clinic on May 30 for chemotherapy; however, she was found to have a hemoglobin of 6.8 and was transfused 2 units of PRBCs. Her potassium was found to be 2.1, and she was given 20 mEq of IV potassium but in the morning of May 31, a stat potassium level was 2.3 and so I advised her to go to the hospital for admission for potassium replacement and monitoring on telemetry. The patient had denied any symptoms of chest pain, palpitation, diaphoresis, or other problems. She is feeling weak and fatigued from chemotherapy, but her appetite is okay, and otherwise, denies any other sx's. Since admission to the hospital, she received 80 mEq of IV potassium, improvement in her potassium up to 3.2. Scheduled for another 40 IV today. REVIEW OF SYSTEMS: Ten-point review of systems is negative, except as per HPI. PAST MEDICAL HISTORY: Pancreatic cancer, sinus bradycardia/sick sinus syndrome status post permanent pacemaker, dual chamber implantation, status post PCI, hypertension, hyperlipidemia, diabetes. SOCIAL HISTORY: Nonsmoker, nondrinker. ALLERGIES: MORPHINE PHYSICAL EXAMINATION: VITAL SIGNS: Temperature 97.6, pulse 91, respirations 18, blood pressure 142/ 92. GENERAL APPEARANCE: The patient is sitting up in bed, eating breakfast, in no acute distress. HEENT: Normocephalic, atraumatic. NECK: Supple. CARDIOVASCULAR: S1 and S2. Regular rate and rhythm. LUNGS: Clear to auscultation. ABDOMEN: Soft, nondistended, and nontender. EXTREMITIES: Bilateral lower extremities edema in the ankles, minimal in the shins. SKIN: No rashes. NEUROLOGIC: Cranial nerves 2 through 12 are grossly intact and otherwise exam is nonfocal. LABORATORY DATA: White blood cells 22.6, hemoglobin 11.1, platelets 49, potassium 2.3 up to 3.2, chloride 111, carbon dioxide 21, BUN 8, creatinine 0.79, glucose 123 , calcium 7.6. ASSESSMENT AND PLAN: A 79-year-old female with metastatic pancreatic cancer on FOLFIRINOX, presenting with hypokalemia. The patient's potassium has responded very well to IV replacement and agree with another 40 mEq today, which should normalize her potassium and she should be okay for discharge home and will follow up with her in the clinic. She is currently on the schedule for chemotherapy next June 07. Regarding her lower extremity edema, I have recommended that she try compression stockings prior to any diuretics as she is already having trouble with her potassium levels and also leg elevation. We will follow up with the patient in clinic as scheduled. Job ID: [id number] MTDD
[2019-06-01] MEDS ORDERED: Potassium Bicarbonate/Cit Ac 25 MEQ TAB PO SCH (12:45)
[2019-06-01 15:32] VITALS: BP 142/95; TEMP 97.9
[2019-06-01 15:34] LABS: Anion Gap 12 mmol/L (10-20); BUN (Urea Nitrogen) 8 mg/dL (9.8-20.1); Calc. Creatinine Clearance 47 mL/min (70-130); Calcium 7.3 mg/dL (7.8-10.44); Carbon Dioxide 23 mmol/L (23-31); Chloride 108 mmol/L (98-107); Estimated GFR-MDRD 82; Glucose 151 mg/dL (83-110); Sodium 139 mmol/L (136-145)
--- NOTE | 2019-06-05 22:39 | EKG ---
Test Reason : Blood Pressure : / mmHG Vent. Rate : 100 BPM Atrial Rate : 100 BPM P-R Int : 000 ms QRS Dur : 092 ms QT Int : 418 ms P-R-T Axes : 000 -43 224 degrees QTc Int : 539 ms Sinus rhythm with Premature atrial complexes Left axis deviation Anterior infarct , age undetermined Can not rule out. T wave abnormality, consider lateral ischemia Prolonged QT Abnormal ECG When compared with ECG of 14-MAR-2019 10:10, Significant changes have occurred Confirmed by Parth BARFIELD ([id number]) on 06/05/2019 10:38:52 PM Referred By: MORIS Confirmed By:Parth BARFIELD
== END 2019-06-01 17:24 | disposition home or self-care (01) ==
LOC: 2SW 14:31
PROVIDERS: ADMIT Family Medicine; ATTEND Family Medicine
DX: E87.6 Hypokalemia (principal); D64.81 Anemia due to antineoplastic chemotherapy; C78.89 Secondary malignant neoplasm of other digestive organs; C80.1 Malignant (primary) neoplasm, unspecified; I48.0 Paroxysmal atrial fibrillation; E11.9 Type 2 diabetes mellitus without complications; E78.5 Hyperlipidemia, unspecified; I25.10 Atherosclerotic heart disease of native coronary artery without angina pectoris; Z95.0 Presence of cardiac pacemaker; Z88.5 Allergy status to narcotic agent; Z79.01 Long term (current) use of anticoagulants; Z79.84 Long term (current) use of oral hypoglycemic drugs; Z79.899 Other long term (current) drug therapy
CPT/HCPCS: 80048 ×2; 82565; 82962 ×2; 84132; 85014; 85018; 85025; 85049; 93005; 96361; 96365; 96366 ×2; 97139; G0378 ×2; G0379; 36415; 36416; 93010; J1642; J3480; J7050; Q0167

== ENCOUNTER 2019-06-07 08:26 | Day surgery (SDC) | payer MEDICARE, MEDICAID ==
[~2019-06-07 08:26] MED LIST changes: +Atropine Sulfate 0.25 MG in Sodium Chloride 0.9% 50 ML IVPB SCH; +DEXTROSE 5% IVPB SCH; +Dexamethasone Sod Phosphate 20 MG in Sodium Chloride 0.9% 50 ML IVPB SCH; +IRINOTECAN IVPB SCH; +LEUCOVORIN CALCIUM IVPB SCH; +OXALIPLATIN IVPB SCH; -PEGFILGRASTIM-JMDB 6 MG/0.6 ML SYRINGE SQ SCH; +Palonosetron HCl 0.25 MG in Sodium Chloride 0.9% 50 ML IVPB SCH; +SODIUM CHLORIDE 0.9% IVPB SCH; +WATER IVPB SCH
[2019-06-07] MEDS ORDERED: Sodium Chloride 0.9% 20 ML ONE (08:54)
[2019-06-07 08:57] VITALS: BP 133/80; TEMP 98.4
== END 2019-06-07 15:06 | disposition home or self-care (01) ==
LOC: ONC/OP 08:26
PROVIDERS: ATTEND Internal Medicine Hematology & Oncology
DX: Z51.11 Encounter for antineoplastic chemotherapy (principal); C25.1 Malignant neoplasm of body of pancreas; Z88.5 Allergy status to narcotic agent
CPT/HCPCS: 96367; 96375; 96413; 96415; 96417; J0461; J0640; J1100; J1453; J2469; J3490; J7050; J7070; J9206; J9263

== ENCOUNTER 2019-06-21 12:57 | Day surgery (SDC) | payer MEDICARE, OTHER ==
[2019-06-21] MEDS ORDERED: Sodium Chloride 0.9% 20 ML ONE (12:59)
[2019-06-21] MEDS ORDERED: IRINOTECAN IVPB SCH (13:30)
[2019-06-21] MEDS ORDERED: DEXTROSE 5% IVPB SCH (13:30)
[2019-06-21] MEDS ORDERED: WATER IVPB SCH (13:30)
[2019-06-21 13:31] VITALS: BP 167/96; TEMP 97.8
== END 2019-06-21 17:33 | disposition home or self-care (01) ==
LOC: ONC/OP 12:57
PROVIDERS: ATTEND Internal Medicine Hematology & Oncology
DX: Z51.11 Encounter for antineoplastic chemotherapy (principal); C25.1 Malignant neoplasm of body of pancreas
CPT/HCPCS: 36415; 80053; 82248; 83615; 84100; 84550; 86301; 96367; 96375; 96413; 96415; 96416; 96549; J0461; J0640; J1100; J1453; J2469; J3490; J7050; J7070; J9206; J9263

== ENCOUNTER 2019-06-23 14:15 | Day surgery (SDC) | payer MEDICARE, MEDICAID ==
[~2019-06-23 14:15] MED LIST changes: -Atropine Sulfate 0.25 MG in Sodium Chloride 0.9% 50 ML IVPB SCH; -DEXTROSE 5% IVPB SCH; -Dexamethasone Sod Phosphate 20 MG in Sodium Chloride 0.9% 50 ML IVPB SCH; -IRINOTECAN IVPB SCH; -LEUCOVORIN CALCIUM IVPB SCH; -OXALIPLATIN IVPB SCH; -Palonosetron HCl 0.25 MG in Sodium Chloride 0.9% 50 ML IVPB SCH; +Pegfilgrastim Onpro 6 MG/0.6 ML SQ SCH; -SODIUM CHLORIDE 0.9% IVPB SCH; -WATER IVPB SCH
== END 2019-06-23 14:29 | disposition home or self-care (01) ==
LOC: ONC/OP 14:15
PROVIDERS: ATTEND Internal Medicine Hematology & Oncology
DX: Z51.11 Encounter for antineoplastic chemotherapy (principal); C25.1 Malignant neoplasm of body of pancreas; Z88.5 Allergy status to narcotic agent
CPT/HCPCS: 96377; J2505

== ENCOUNTER 2019-07-01 11:47 | Observation (INO) | payer MEDICARE, MEDICAID ==
[2019-07-01 13:52] LABS: Hemoglobin 11.1 g/dL (12.0-16.0); Mean Corpuscular Hemoglobin 32.8 pg (27.0-31.0); Mean Corpuscular Volume 96.4 fL (78.0-98.0); Mean Platelet Volume 13.4 fL (7.4-10.4); Platelet Count 12 thou/uL (130-400); RBC Distribution Width 15.6 % (11.5-14.5); Red Blood Cell (RBC) Count 3.38 mill/uL (4.20-5.40); White Blood Cell (WBC) Count 3.1 thou/uL (4.8-10.8)
[2019-07-01 13:59] LABS: INR-International Normal Ratio 1.1; PTT 30.5 SEC (22.9-36.1); Prothrombin Time 14.2 SEC (12.0-14.7)
[2019-07-01 14:05] LABS: ALT (SGPT) 9 U/L (8-55); AST (SGOT) 15 U/L (5-34); Albumin 3.1 g/dL (3.4-4.8); Alkaline Phosphatase 66 U/L (40-150); Anion Gap 15 mmol/L (10-20); BUN (Urea Nitrogen) 14 mg/dL (9.8-20.1); Bilirubin, Total 0.8 mg/dL (0.2-1.2); Calc. Creatinine Clearance 0 mL/min (70-130); Calcium 8.1 mg/dL (7.8-10.44); Carbon Dioxide 21 mmol/L (23-31); Chloride 102 mmol/L (98-107); Estimated GFR-MDRD 80; Globulin 2.5 g/dL (2.4-3.5); Protein, Total 5.6 g/dL (6.0-8.3); Sodium 135 mmol/L (136-145)
[2019-07-01 14:08] LABS: Glucose 58 mg/dL (83-110); Potassium 2.9 mmol/L (3.5-5.1)
[2019-07-01 14:10] LABS: Anisocytosis SLIGHT = 6-15 cells (100X) (0-5/hpf); Band 10 % (5-11); Lymphocytes 27 % (21-51); MDiff Complete? YES; Metamyelocyte 1 % (0-0); Monocytes 1 % (0-10); Neutrophil 61 % (42-75); Platelet Morphology Comment Appears Decreased; Poikilocytosis SLIGHT = 6-15 cells (100X) (0-5/hpf); Tear Drops SLIGHT = 2-5 cells (100X) (0-1/hpf)
--- NOTE | 2019-07-01 14:19 | CT ---
CT Chest Abd Pelvis WO Con History: Abnormal echocardiogram Comparison: CT chest, abdomen, pelvis May 12, 2019 Findings: Large left layering pleural effusion. Trace right effusion. No confluent airspace consolidation. No pneumothorax. Moderate pericardial effusion. Fluid along the posterior pericardium measuring up to 1 cm in and with . Diffuse third spacing of fluid. Mass evaluation of the pancreas is severely limited due to lack of in travenous contrast. Multiple hyperdense masses of both kidneys. No free intraperitoneal gas. Avascular necrosis both femoral heads with some low-grade anterior surfa ce depression left femoral head. No acute thoracic spine compression fracture. Impression: 1. Moderate to large layering left pleural effusion. 2. Moderate pericardial fluid measuring 1 cm in width along the posterior pericardial recess has size increase from May 12, 2019 CT exam. 3. Diffuse third spacing of fluid
[2019-07-01] MEDS ORDERED: Dextrose 50% Abboject 50 ML SYRINGE ONE (14:22)
[2019-07-01 14:38] LABS: CKMB 1.2 ng/mL (0-6.6)
[2019-07-01] MEDS ORDERED: Dextrose 50% Abboject 50 ML SYRINGE SLOW IVP SCH (15:15)
[2019-07-01] MEDS ORDERED: Potassium Chloride 40 MEQ in Sodium Chloride 0.9% 250 ML 250 ML IVPB SCH (15:15)
[2019-07-01] MEDS ORDERED: Potassium Chloride 20 MEQ/100 ML PREMIX BAG ONE (15:58)
[2019-07-01] MEDS ORDERED: Senokot S 8.6-50 MG TAB PO PRN (17:00)
[2019-07-01] MEDS ORDERED: Acetaminophen 325 MG TAB PO PRN (17:00)
[2019-07-01] MEDS ORDERED: HumaLOG 300 UNITS/3 ML VIAL SC PRN (17:05)
[2019-07-01] MEDS ORDERED: Dextrose 5% in Water 1,000 ML IV PRN (17:05)
[2019-07-01] MEDS ORDERED: Dextrose 50% Abboject 50 ML SYRINGE SLOW IVP PRN (17:05)
[2019-07-01 17:16] LABS: Phosphorus 2.4 mg/dL (2.3-4.7)
[2019-07-01] MEDS ORDERED: Magnesium 2 GM/50 ML BAG (IN WATER) ONE (17:58)
--- NOTE | 2019-07-01 18:47 | HP ---
PRIMARY CARE PHYSICIAN: Dr. Neely. ONCOLOGIST: Dr. Parks. POLYSTYRENE BEAD MOLDER: Dr. Guallpa. CHIEF COMPLAINT: Abnormal echo. HISTORY OF PRESENT ILLNESS: Ms. Portillo is a 79-year-old female, who presented to the emergency room today as she was told to come to the ER by Dr. Guallpa, her fireman helper for an abnormal echo. She reports that she was noted to have a pleural effusion, and a pericardial effusion and a decreased potassium. The patient was recently admitted on 06/28/2019 for symptomatic anemia and pancytopenia, was given 3 units of packed red blood cells, admitted overnight and discharged the next day. Today, her white blood cell count is 3.1, hemoglobin is 11.1, hematocrit is 32.5, and platelet count is 12. Dr. Parks was contacted about this and stated not to give her anymore blood or platelets unless she was having a procedure. She was also found to have a sodium of 135, potassium of 2.9, carbon dioxide of 21, and was initially hypoglycemic and was given an amp of D50 and it has rebounded to 107. Dr. Shell, her cardiovascular surgeon was contacted from the emergency room and he came to see the patient and will follow. The patient states that Dr. Shell told her that he was not going to do any procedures right now and that he would see her in the morning. The patient has a history of pancreatic cancer with metastases and last chemotherapy was last week. She denies fevers or chills. Just reported generalized weakness earlier in the week when she was anemic, and it was worse with exertion, although she reports that it is somewhat better today. She was on Eliquis on the last admission and that was stopped and not continued. She will be admitted to the observation unit for further management and evaluation by Cardiology and Cardiovascular Surgery. REVIEW OF SYSTEMS: The patient reports that she is still a little weak, but improved. She denies any pain, fever, or chills. All other systems are reviewed and are negative unless mentioned in the HPI. PAST MEDICAL HISTORY: Metastatic pancreatic cancer, status post MediPort placement. She is receiving chemotherapy every 2 weeks, pacemaker placement due to symptomatic sinus emma sick sinus syndrome, coronary artery disease post CARVER HAND in the past, hypertension, hyperlipidemia, paroxysmal atrial fibrillation, and type 2 diabetes. PAST SURGICAL HISTORY: Tubal ligation and MediPort placement. SOCIAL HISTORY: The patient lives alone and independently. Does have home health and a shotblast operator, who comes periodically. She has good support from her family. She is a nonsmoker, nondrinker. Six grown children and many grandchildren. She is a full code. ALLERGIES: MORPHINE. HOME MEDICATIONS: 1. Amitriptyline 25 mg p.o. at bedtime. 2. Atorvastatin 80 mg p.o. at bedtime. 3. Dronabinol 5 mg p.o. daily. 4. Zetia 10 mg p.o. at bedtime. 5. Glipizide 2.5 mg p.o. daily. 6. Adnppl-lihoegen-scyapgg/Creon capsule t.i.d. 7. Potassium chloride 10 mEq p.o. daily. FAMILY HISTORY: Noncontributory. PHYSICAL EXAMINATION: VITAL SIGNS: Blood pressure is 178/83, pulse is 89, respirations are 18, pO2 saturations are 98% on room air. CONSTITUTIONAL: The patient appears nontoxic. She is alert and oriented to person, place and time. HEENT: Head is atraumatic and normocephalic. Eyes, pupils are equally round and reactive to light. Extraocular muscles are intact. ENT; mouth exam is normal. Mucous membranes are moist. NECK: Trachea is midline. No tenderness. RESPIRATORY/CHEST: Breath sounds are clear. No sign of respiratory distress. CARDIOVASCULAR: Regular heart rate and rhythm. Heart sounds are muffled. ABDOMEN: Nontender. Bowel sounds are heard. BACK: Normal range of motion. No tenderness. EXTREMITIES: Upper extremities, normal range of motion. Sensation intact. Radial pulses are normal. Lower extremity, normal range of motion. Motor strength is normal. Pedal pulses are normal. There is no edema noted. NEURO: The patient is oriented to person, place, and time. Speech is normal. SKIN: Warm, dry, and normal in color. ASSESSMENT: 1. Pericardial effusion. We will ask Cardiology to consult. Dr. Shell saw the patient in the ER, but I do not see a note for him. We have added a consult for him. 2. Hypokalemia. Potassium 40 mEq has been started in the ER. We will check potassium in the morning. 3. Hypomagnesemia. A 2 g of magnesium was given in the ER. We will recheck. We will also check a phosphorus. 4. Thrombocytopenia. Although little lower than normal, Dr. Parks was contacted from the ER and we will watch and recheck in the morning. 5. History of pancreatic cancer with metastasis. We will ask Dr. Parks to consult. 6. Deep venous thrombosis and gastrointestinal prophylaxis have been started. 7. Case discussed with Dr. Hughes, who agrees with plan. Job ID: [id number]
[2019-07-01] MEDS: Ezetimibe 10 MG TAB PO SCH (20:42)
[2019-07-01] MEDS: Amitriptyline HCl 25 MG TAB PO SCH (20:42)
[2019-07-01] MEDS: Atorvastatin Calcium 40 MG TAB PO SCH (20:42)
[2019-07-01] MEDS: Mirtazapine 30 MG TAB PO SCH (20:42)
[2019-07-01] MEDS ORDERED: Famotidine 20 MG TAB PO SCH (21:00)
--- NOTE | 2019-07-02 00:05 | CON ---
DATE OF CONSULTATION: 07/01/2019 REQUESTING PHYSICIAN: Dr. Adams in the emergency room. ONCOLOGIST: Dr. Parks. CHIEF COMPLAINT: Abnormal echocardiogram. HISTORY OF PRESENT ILLNESS: The patient is a 79-year-old woman, who has metastatic pancreatic cancer. She recently was discharged following an admission for symptomatic anemia with her hemoglobins in the 6 and she was transfused up to around 10, but has had 8 units of blood since February for symptomatic anemia. She was undergoing echocardiography today and that echocardiogram showed an effusion that prompted referral to the emergency room. The patient denies any chest pain or any shortness of breath. The family thinks that the skin around her eyes is a little bit darker than normal but they do not, other than that, notice any change in complexion of her face or upper torso. PAST MEDICAL HISTORY: Significant for her cancer, coronary artery disease, atrial fibrillation, sick sinus syndrome, and hypertension. PAST SURGICAL HISTORY: She had a pacemaker placed. SOCIAL HISTORY: She does not smoke or drink. ALLERGIES: SHE REPORTS AN INTOLERANCE TO MORPHINE. MEDICATIONS: Until recently, she was on Eliquis that has been put on hold as of yesterday. REVIEW OF SYSTEMS: As above. She has not had any real appetite for several days. PHYSICAL EXAMINATION: GENERAL: She is in no distress. VITAL SIGNS: Heart rate is 90 and blood pressure 177/106. HEENT: She has no overt facial or torso plethora. NECK: She has no JVD or hepatojugular reflux. RESPIRATORY: She has clear breath sounds. HEART: Regular rate and rhythm with easily distinguishable heart sounds. ABDOMEN: Soft and nontender with about a 3 cm hard black mass associated with her umbilicus. EXTREMITIES: She has some darkening of the skin on her feet but faintly palpable dorsalis pedis pulse, it is somewhat stronger on the right than on the left. IMAGING: Her CT scan from today shows a lot of scatter artifact from her pacemaker leads. Posteriorly, she has about a 1.5 cm pericardial effusion that thins out to just few millimeters laterally. Anteriorly, it is very difficult to appreciate and my initial impression was that there was essentially none anteriorly. I reviewed the echocardiogram at Dr. Guallpa's office. She does have about 2.5 cm of fluid over the right ventricle. The right ventricle has an irregular contour and has an almost undulating pattern to its contraction. The right atrium has no suggestion of collapse, however and Doppler interrogation shows no respiratory variation. LABORATORY DATA: Her hemoglobin is 11.1, platelets are 12,000, and white count 3.1 (just three days ago, her white count was 0.6 and platelets were 14,000. Four days ago, her white count was 1.9, hemoglobin 6.9, and platelets 33,000). Her chemistries show potassium 2.9, glucose of 58, creatinine 0.83, and bilirubin is 0.8. Alkaline phosphatase 66, AST 15, ALT 9, and albumin is 3.1. BNP was 335.3. IMPRESSION AND RECOMMENDATION: Although she may have a loculated malignant effusion, clinically she certainly is not in tamponade and even echocardiographically, the right atrium which typically is most sensitive to the effects of tamponade is not really showing any evidence of that. While it may prove ultimately that she will manifest tamponade, I am rather reluctant to proceed with an invasive procedure even as limited as a pericardial window in the face of a platelet count of 12,000. She is going to be observed overnight for potassium repletion, anyway that will give me a chance to see her again tomorrow. It is not clear to me exactly what her chemo schedule is. She tells me that next Thursday she is due to have another round of chemo. It would be nice if it proves inevitable that she needs to be drained and that it could be done when she has had a chance to recover some from her chemo. Job ID: [id number]
[2019-07-02 00:56] VITALS: BMI 17.6
[2019-07-02 04:50] LABS: Hemoglobin 11.5 g/dL (12.0-16.0); Mean Corpuscular HGB CONC 34.3 g/dL (32.0-36.0); Mean Corpuscular Hemoglobin 32.8 pg (27.0-31.0); Mean Corpuscular Volume 95.7 fL (78.0-98.0); Mean Platelet Volume 13.4 fL (7.4-10.4); Platelet Count 13 thou/uL (130-400); RBC Distribution Width 15.4 % (11.5-14.5); Red Blood Cell (RBC) Count 3.49 mill/uL (4.20-5.40); White Blood Cell (WBC) Count 4.9 thou/uL (4.8-10.8)
[2019-07-02 04:56] LABS: Phosphorus 2.3 mg/dL (2.3-4.7)
[2019-07-02 05:03] LABS: ALT (SGPT) 8 U/L (8-55); AST (SGOT) 14 U/L (5-34); Albumin 2.8 g/dL (3.4-4.8); Alkaline Phosphatase 63 U/L (40-150); Anion Gap 12 mmol/L (10-20); BUN (Urea Nitrogen) 13 mg/dL (9.8-20.1); Bilirubin, Total 0.7 mg/dL (0.2-1.2); Calc. Creatinine Clearance 39 mL/min (70-130); Calcium 8.2 mg/dL (7.8-10.44); Carbon Dioxide 23 mmol/L (23-31); Chloride 104 mmol/L (98-107); Estimated GFR-MDRD 68; Globulin 2.3 g/dL (2.4-3.5); Glucose 80 mg/dL (83-110); Magnesium 1.5 mg/dL (1.6-2.6); Potassium 3.3 mmol/L (3.5-5.1); Protein, Total 5.1 g/dL (6.0-8.3); Sodium 136 mmol/L (136-145)
[2019-07-02 05:49] LABS: Anisocytosis SLIGHT = 6-15 cells (100X) (0-5/hpf); Band 15 % (5-11); Eosinophils 1 % (0-10); Lymphocytes 12 % (21-51); MDiff Complete? YES; Monocytes 6 % (0-10); Neutrophil 66 % (42-75); Platelet Morphology Comment Appears Decreased; Poikilocytosis SLIGHT = 6-15 cells (100X) (0-5/hpf); Tear Drops SLIGHT = 2-5 cells (100X) (0-1/hpf)
[2019-07-02] MEDS: Pancrelipase DR 12000 1 CAP PO SCH ×3 (08:13→17:32)
[2019-07-02] MEDS: Famotidine 20 MG TAB PO SCH (08:13)
[2019-07-02] MEDS ORDERED: Magnesium Oxide 400 MG TAB PO SCH (10:00)
[2019-07-02] MEDS ORDERED: Potassium Chloride 20 MEQ TAB PO SCH (10:00)
--- NOTE | 2019-07-02 10:47 | PRG ---
DATE OF SERVICE: 07/02/2019 SUBJECTIVE: The patient is seen and examined at the bedside. She does not have much complaints to offer except for lack of appetite. She is not short of breath. She had bowel movement this morning. OBJECTIVE: VITAL SIGNS: Blood pressure is 170/92, pulse is 88, temperature is 97.9, respirations 16, O2 saturation is 99% on room air. GENERAL: She looks fatigued and tired and emaciated. HEENT: Her head is atraumatic and normocephalic. Eyes, PERRLA. Sclerae are nonicteric. Conjunctivae are palish. Oral mucosa is slightly dry. NECK: Supple. LUNGS: Clear. HEART: S1 and S2 normal. No S3. No S4. ABDOMEN: Soft, nontender, nondistended. Bowel sounds are present. EXTREMITIES: No clubbing, cyanosis, or edema. NEUROLOGIC: She follows my commands. She moves all 4 extremities. There are no motor or sensory deficits. LABORATORY DATA: White count of 4.9, hemoglobin D 11.5, hematocrit 33.5, platelet count is 13,000. Sodium of 136, potassium 3.3, chloride 104, CO2 of 23, BUN 13, creatinine 0.96, glucose 80. Magnesium 1.5. Total protein 5.1, albumin 2.8. IMPRESSION: 1. Pericardial effusion. The patient was seen by cardiothoracic surgeon, Dr. Shell, who is still evaluating the case for possible surgical intervention. 2. Hypokalemia. We will start her on additional 40 mEq of KCl x1 plus magnesium 400 twice a day since her magnesium is still on the lower side. 3. Thrombocytopenia, that is most likely related to her chemotherapy. 4. Pancreatic cancer with metastasis. Oncology is consulted. PLAN: We are awaiting for cardiothoracic surgeon's final decision. We will replace her potassium and magnesium. We will give her some supplements. Job ID: [id number]
[2019-07-02] MEDS: Amitriptyline HCl 25 MG TAB PO SCH (20:11)
[2019-07-02] MEDS: Ezetimibe 10 MG TAB PO SCH (20:11)
[2019-07-02] MEDS: Atorvastatin Calcium 40 MG TAB PO SCH (20:11)
[2019-07-02] MEDS: Magnesium Oxide 400 MG TAB PO SCH (20:12)
[2019-07-02] MEDS: Mirtazapine 30 MG TAB PO SCH (20:12)
--- NOTE | 2019-07-02 21:14 | CON ---
DATE OF CONSULTATION: REASON FOR CONSULTATION: Pancreatic cancer. HISTORY OF PRESENT ILLNESS: A 79-year-old female with metastatic pancreatic cancer, currently on FOLFIRINOX chemotherapy, last received on June 21, 2019 through June 23, 2019, presenting to the hospital after she was found to have an abnormal echocardiogram by Dr. Guallpa, her loan officer assistant. Of note, she was recently admitted for symptomatic anemia, transfused 3 units of PRBCs, and discharged home. She is mostly asymptomatic from the pericardial effusion without any shortness of breath, chest pain, or any physical or clinical signs of tamponade. She has been evaluated by Dr. Shell, who is reluctant at this time to perform a pericardial window or even base of procedure with a platelet count of 12,000 to 13,000, and as she is nonsymptomatic, I would agree with this. The patient denies any symptoms at present and overall feels pretty well. She is also having potassium replacement, which has been trouble for her in the past. REVIEW OF SYSTEMS: Ten-point review of systems negative except as per HPI. PAST MEDICAL HISTORY: Pancreatic cancer, diabetes, hypertension, CAD, atrial fibrillation, hyperlipidemia, arthritis, anxiety, depression, cataracts. PAST SURGICAL HISTORY: Tubal ligation, hysterectomy, left radial fracture with reduction, RCA stent placement, laparoscopic RSO with adhesiolysis of omentum to anterior abdominal wall, cardiac cath, pacemaker placement, pacemaker right ventricular lead revision, MediPort placement. FAMILY HISTORY: Uterine cancer in daughter, rhonchorous lung cancer. SOCIAL HISTORY: The patient has no history of tobacco or alcohol use. CURRENT MEDICATIONS: Reviewed. PHYSICAL EXAMINATION: VITAL SIGNS: Temperature 97.9, pulse 96, respirations 13 to 20, saturating 100% on room air, blood pressure 161/93. GENERAL: The patient is sitting up in bed, in no acute distress. HEENT: Normocephalic and atraumatic. Complication of plethora. Respirations clear. HEART: Regular rhythm and rate. ABDOMEN: Soft, nontender. Umbilical nodule present consistent with history of pancreatic cancer. IMAGING DATA: Echocardiogram reviewed by Dr. Guallpa and Dr. Shell, please see their notes. LABORATORY DATA: White blood cells 4.9, hemoglobin 11.5, platelets 13. Sodium 136, potassium 3.3, BUN 13, creatinine 0.96. Magnesium 1.5. ASSESSMENT AND PLAN: A 79-year-old female with metastatic pancreatic cancer, currently on FOLFIRINOX chemotherapy, presenting with hypokalemia and pericardial effusion. The patient is not symptomatic from her effusion and she is not showing any clinical or even echocardiographic evidence of tamponade at this time. Procedure would be risky with a low platelet count, although a platelet transfusion could be considered if the procedure was needed. Dr. Shell currently plans to only monitor the effusion going forward. The patient is due to see me in clinic on Thursday and chemotherapy on Thursday, which may have to be postponed due to her thrombocytopenia and would also postpone if the procedure needed to be done. We will follow her along with Cardiology, and Dr. Shell to see if any procedure is needed as an outpatient if not done inpatient. She will likely be discharged today, and I will see her in clinic. Thank you for this consult. Job ID: [id number]
[2019-07-03 06:49] LABS: ALT (SGPT) 8 U/L (8-55); AST (SGOT) 14 U/L (5-34); Albumin 2.8 g/dL (3.4-4.8); Alkaline Phosphatase 74 U/L (40-150); Anion Gap 11 mmol/L (10-20); BUN (Urea Nitrogen) 12 mg/dL (9.8-20.1); Bilirubin, Total 0.7 mg/dL (0.2-1.2); Calc. Creatinine Clearance 38 mL/min (70-130); Calcium 8.3 mg/dL (7.8-10.44); Carbon Dioxide 23 mmol/L (23-31); Chloride 105 mmol/L (98-107); Estimated GFR-MDRD 68; Globulin 2.3 g/dL (2.4-3.5); Glucose 66 mg/dL (83-110); Potassium 3.8 mmol/L (3.5-5.1); Protein, Total 5.1 g/dL (6.0-8.3); Sodium 135 mmol/L (136-145)
[2019-07-03 08:02] LABS: Hemoglobin 12.1 g/dL (12.0-16.0); Mean Corpuscular HGB CONC 33.6 g/dL (32.0-36.0); Mean Corpuscular Hemoglobin 32.3 pg (27.0-31.0); Mean Corpuscular Volume 96.3 fL (78.0-98.0); Platelet Count 17 thou/uL (130-400); RBC Distribution Width 15.6 % (11.5-14.5); Red Blood Cell (RBC) Count 3.73 mill/uL (4.20-5.40); White Blood Cell (WBC) Count 9.5 thou/uL (4.8-10.8)
[2019-07-03 08:03] LABS: Band 24 % (5-11); Eosinophils 1 % (0-10); Lymphocytes 20 % (21-51); MDiff Complete? YES; Metamyelocyte 4 % (0-0); Monocytes 8 % (0-10); Myelocyte 1 % (0-0); Neutrophil 42 % (42-75); Nucleated RBC 1 % (0); Platelet Morphology Comment Appears Decreased
[2019-07-03] MEDS: Pancrelipase DR 12000 1 CAP PO SCH ×3 (08:29→17:21)
[2019-07-03] MEDS: Famotidine 20 MG TAB PO SCH (08:30)
[2019-07-03] MEDS: Magnesium Oxide 400 MG TAB PO SCH ×2 (08:30→20:27)
[2019-07-03 10:42] LABS: Anion Gap 9 mmol/L (10-20); BUN (Urea Nitrogen) 12 mg/dL (9.8-20.1); Calc. Creatinine Clearance 40 mL/min (70-130); Calcium 8.3 mg/dL (7.8-10.44); Carbon Dioxide 23 mmol/L (23-31); Chloride 105 mmol/L (98-107); Estimated GFR-MDRD 71; Glucose 79 mg/dL (83-110); Magnesium 1.4 mg/dL (1.6-2.6); Potassium 3.4 mmol/L (3.5-5.1); Sodium 134 mmol/L (136-145)
[2019-07-03] MEDS ORDERED: Potassium Chloride 20 MEQ TAB PO SCH (11:15)
[2019-07-03] MEDS ORDERED: Magnesium Sulfate 2 GM in Sodium Chloride 0.9% 100 ML IVPB SCH (11:15)
[2019-07-03] MEDS ORDERED: Magnesium 2 GM/50 ML 2 GM in Premix Bag 1 BAG IVPB SCH (11:15)
[2019-07-03] MEDS ORDERED: Amlodipine 5 MG TAB PO SCH (12:45)
--- NOTE | 2019-07-03 16:20 | DIS ---
DATE OF ADMISSION: 07/01/2019 DATE OF DISCHARGE: 07/03/2019 CONSULTANTS: 1. Dr. Aaron Parks, Hematology/Oncology Service. 2. Dr. Rolando Shell, Cardiovascular Surgery. FINAL DIAGNOSES: 1. Pericardial effusion without a tamponade and asymptomatic. 2. Hypokalemia, status post replacement. 3. Thrombocytopenia secondary to chemotherapy. 4. Pancreatic cancer with metastasis. 5. Hypomagnesemia, corrected. HOSPITAL COURSE: The patient is a 79-year-old female, who was sent to the hospital after she had her echocardiogram done by Dr. Guallpa, her director behavioral health, which showed pericardial effusion. She is an inpatient with diagnosis of pancreatic cancer with metastasis, undergoing chemotherapy with Dr. Parks, FOLFIRINOX. The patient was asymptomatic and she was seen by Dr. Shell for cardiovascular evaluation. He did not want to do anything surgically with this since she was asymptomatic and she had profound thrombocytopenia. He decided to watch her. During this hospitalization, her potassium was on the lower side and magnesium. She was giving potassium and magnesium supplement and now she is corrected to normal range. Her thrombocytopenia is caused by her current chemotherapy she is receiving for her pancreatic cancer and her platelets level were 12,000 in the beginning of this stay and they are 17,000 today. She is going to have followup with Dr. Parks tomorrow. Her blood pressure is 163/89, pulse is 76, respiratory rate is 20, and pulse oximetry is 97% on room air. Her temperature is 97.4. She is doing well. She is going to see Dr. Parks tomorrow and have a CAT scan prior to her next round of chemotherapy. She is discharged in good condition with recommendation to stay on regular diet and activities as tolerated. DISCHARGE MEDICATIONS: Her medications at the time of discharge; 1. Uucqoh-lurfvddb-tlogmwe, which is Creon DR 24,000 units one capsule 3 times a day with meals. 2. Amitriptyline 25 mg at bedtime. 3. Glipizide 2.5 mg once a day. 4. Potassium chloride 10 mEq 3 times a day. 5. Mirtazapine 30 mg p.o. at bedtime. 6. Zetia 10 mg at bedtime. 7. Dronabinol 5 mg daily. 8. Atorvastatin 80 mg at bedtime. TIME SPENT: The time spent on this discharge is less than 30 minutes. Job ID: [id number]
[2019-07-03] MEDS: Mirtazapine 30 MG TAB PO SCH (20:27)
[2019-07-03] MEDS: Ezetimibe 10 MG TAB PO SCH (20:27)
[2019-07-03] MEDS: Atorvastatin Calcium 40 MG TAB PO SCH (20:27)
[2019-07-03] MEDS: Amitriptyline HCl 25 MG TAB PO SCH (20:27)
[2019-07-04 03:55] VITALS: TEMP 97.6
[2019-07-04 04:52] LABS: Anion Gap 14 mmol/L (10-20); BUN (Urea Nitrogen) 10 mg/dL (9.8-20.1); Calc. Creatinine Clearance 41 mL/min (70-130); Calcium 8.4 mg/dL (7.8-10.44); Carbon Dioxide 21 mmol/L (23-31); Chloride 105 mmol/L (98-107); Estimated GFR-MDRD 74; Glucose 99 mg/dL (83-110); Sodium 136 mmol/L (136-145)
[2019-07-04 08:14] VITALS: BP 141/77
[2019-07-04] MEDS ORDERED: Amlodipine 5 MG TAB PO SCH (09:00)
[2019-07-04] MEDS: Pancrelipase DR 12000 1 CAP PO SCH (09:19)
[2019-07-04] MEDS: Famotidine 20 MG TAB PO SCH (09:19)
[2019-07-04] MEDS: Magnesium Oxide 400 MG TAB PO SCH (09:22)
--- NOTE | 2019-07-05 10:13 | DIS ---
DATE OF ADMISSION: 07/01/2019 DATE OF DISCHARGE: 07/04/2019 ADDENDUM: This is addendum to discharge summary, which was dictated yesterday. Discharge was postponed because of the patient's hypoglycemia and hypertension. She was started on amlodipine 5 mg once a day and her blood pressure improved, it is 141/77. Her glycemia improved too, it is running around 90 to 108. Her potassium is replaced, is 4.0, and her kidney function is good. She is going to be discharged. We contacted Dr. Parks's office. He wants to see her tomorrow to check her labs. Most likely, her chemotherapy for pancreatic cancer is going to be postponed because of her thrombocytopenia, but this is going to be evaluated by Dr. Parks in his office tomorrow. Also, I encouraged her to follow up with her primary care physician in 1 or 2 weeks. Since her hypoglycemia during this hospitalization was quite obvious, I encouraged her to stop her glipizide and only use it when the glycemia is ranging from 172 and above. At the time of discharge, her medications as dictated before plus amlodipine 5 mg once a day. The patient was seen and examined before she is discharged, and the discharge time is less than 30 minutes. Job ID: [id number]
== END 2019-07-04 11:27 | disposition home or self-care (01) ==
LOC: ERS 11:47 → 2SW 15:55
PROVIDERS: ADMIT Internal Medicine; ATTEND Internal Medicine
DX: I31.3 Pericardial effusion (noninflammatory) (principal); J90 Pleural effusion, not elsewhere classified; C25.9 Malignant neoplasm of pancreas, unspecified; I10 Essential (primary) hypertension; E11.9 Type 2 diabetes mellitus without complications; I25.10 Atherosclerotic heart disease of native coronary artery without angina pectoris; E78.5 Hyperlipidemia, unspecified; I48.0 Paroxysmal atrial fibrillation; D64.9 Anemia, unspecified; E87.6 Hypokalemia; E83.42 Hypomagnesemia; D69.6 Thrombocytopenia, unspecified; Z88.5 Allergy status to narcotic agent; Z79.84 Long term (current) use of oral hypoglycemic drugs; Z79.899 Other long term (current) drug therapy; Z95.0 Presence of cardiac pacemaker
CPT/HCPCS: 71250; 74177; 80048 ×2; 80053 ×3; 82553; 82962 ×3; 83735 ×3; 83880; 84100 ×2; 84484; 85025 ×3; 85610; 85730; 93005; 96365; 96366 ×3; 96367; 96375; 97139 ×3; 99291; G0378 ×5; 36415; 36416; J1642; J3475; J3480; J3490; J7050

== ENCOUNTER 2019-07-05 08:18 | Outpatient (CLI) | payer MEDICARE, MEDICAID ==
--- NOTE | 2019-07-05 11:19 | CT ---
CT CHEST AND ABDOMEN AND PELVIS WITH IV CONTRAST: Date: 07/05/19 Multiple axial tomograms are obtained with IV enhancement with multiplanar reconstruction. Oral contr ast was administered. INDICATION: Pancreatic cancer follow-up. Metastatic pancreatic cancer. Comparison made to CT chest, abdomen, and pelvis dated 05/12/19. Also, comparison with CT chest, abdo men, and pelvis dated 02/18/19. FINDINGS: CT CHEST: Small left pleural effusion is present. This was noted on 05/12/19 and does not appear significantly changed. There is mild associated left basilar atelectasis, which also has a stable appearance. Lung gamboa otherwise appear clear. The pericardial effusion is again seen. This also has a similar appearance to the 05/12/19 exam. No evidence of mediastinal or hilar adenopathy. Pulmonary arteries and thoracic aorta are opacified. No evidence of proximal pulmonary embolus. No evidence of thoracic aortic dissection or aneurysm. Thyroid shows numerous small low density nodules which appear stable. The osseous structures appear u nremarkable. IMPRESSION: 1. Small left pleural effusion with mild left basilar atelectasis appears stable from prior exam. 2. Pericardial effusion again noted and stable in appearance. CT ABDOMEN AND PELVIS: Small volume ascites again noted, similar to the prior exam. Liver and spleen are unremarkable and stable. Small left hepatic lobe cyst is again noted. The two cystic lesions in the pancreatic body which have been previously noted are again seen and do not appear significantly changed. The larger continues to measure approximately 1.8-2.0 cm. Mass in t he body/tail of the pancreas does not appear significantly changed in size or appearance. Dilatation of the pancreatic duct in the tail of the pancreas is stable in appearance. Adrenal glands normal. The large complex cystic lesion involving the upper pole of left kidney appears stable, continuing to measure approximately 6-7 cm. There are cystic lesions from the inferior left kidney which are also stable. A cystic lesion from the lateral right kidney is unchanged. Kidneys show equal function. No h ydronephrosis. Urinary bladder is contracted and not evaluated. Small bowel loops are normal caliber. Colon unremarkable. Aorta shows atherosclerotic calcification w ithout aneurysm or dissection. No mass or adenopathy. Osseous structures unremarkable. 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 Subcutaneous edema in the subcutaneous adipose tissue has a similar appearance to the prior exam. IMPRESSION: 1. Low volume ascites throughout the abdomen and pelvis, similar to prior exam. 2. Pancreatic cysts and low density mass appear stable. 3. Renal cysts appear stable. 4. Diffuse subcutaneous edema, similar in appearance to the prior exam. POS: OFF
== END 2019-07-05 08:19 | disposition home or self-care (01) ==
LOC: BICCT 08:18
PROVIDERS: ATTEND Internal Medicine Hematology & Oncology
DX: C25.1 Malignant neoplasm of body of pancreas (principal); J90 Pleural effusion, not elsewhere classified; J98.11 Atelectasis; K86.2 Cyst of pancreas; K86.89 Other specified diseases of pancreas; N28.1 Cyst of kidney, acquired; R60.0 Localized edema
CPT/HCPCS: 71260; 74177; 80053; 82248; 83615; 84100; 84550

== ENCOUNTER 2019-07-11 08:50 | Day surgery (SDC) | payer MEDICARE, MEDICAID ==
[~2019-07-11 08:50] MED LIST changes: +Atropine Sulfate 0.25 MG in Sodium Chloride 0.9% 50 ML IVPB SCH; +DEXTROSE 5% IVPB SCH; +Dexamethasone Sod Phosphate 20 MG in Sodium Chloride 0.9% 50 ML IVPB SCH; +IRINOTECAN IVPB SCH; +LEUCOVORIN CALCIUM IVPB SCH; +OXALIPLATIN IVPB SCH; +Palonosetron HCl 0.25 MG in Sodium Chloride 0.9% 50 ML IVPB SCH; -Pegfilgrastim Onpro 6 MG/0.6 ML SQ SCH; +SODIUM CHLORIDE 0.9% IVPB SCH; +WATER IVPB SCH
[2019-07-11] MEDS ORDERED: Sodium Chloride 0.9% 20 ML ONE (08:57)
[2019-07-11] MEDS ORDERED: Palonosetron HCl 0.25 MG in Dextrose 5% in Water 50 ML IVPB SCH (09:15)
[2019-07-11] MEDS ORDERED: WATER IVPB SCH ×2 (09:15)
[2019-07-11] MEDS ORDERED: IRINOTECAN IVPB SCH (09:15)
[2019-07-11] MEDS ORDERED: DEXTROSE 5% IVPB SCH ×2 (09:15)
[2019-07-11] MEDS ORDERED: LEUCOVORIN CALCIUM IVPB SCH (09:15)
[2019-07-11 10:39] VITALS: BP 140/85; TEMP 98.1
== END 2019-07-11 15:56 | disposition home or self-care (01) ==
LOC: ONC/OP 08:50
PROVIDERS: ATTEND Internal Medicine Hematology & Oncology
DX: Z51.11 Encounter for antineoplastic chemotherapy (principal); C25.1 Malignant neoplasm of body of pancreas; Z88.5 Allergy status to narcotic agent
CPT/HCPCS: 96367; 96375; 96413; 96415; 96417; J0461; J0640; J1100; J1453; J2469; J3490; J7070; J9206; J9263

== ENCOUNTER 2019-07-12 17:12 | Observation (INO) | payer MEDICARE, MEDICAID ==
[2019-07-12] MEDS ORDERED: Fentanyl 100 MCG/2 ML VIAL ONE (17:30)
--- NOTE | 2019-07-12 17:44 | RAD ---
Exam: Chest one view HISTORY:Syncope. Comparison: 06/27/2019 FINDINGS: Lines and tubes: Stable right-sided Mediport catheter and left-sided transvenous pacemaker Cardiac silhouette:Cardiomegaly Aorta: Atherosclerosis of the aortic knob Pulmonary vessels: Normal Costophrenic angles: Persistent opacification left lung base which obscures the left hemidiaphragm LUNGS: No masses or consolidation. Stable hyperinflation. Pneumothorax: None Osseous abnormalities: None IMPRESSION: 1. No significant interval change. Stable pleural-parenchymal changes left lung base. 2. Atherosclerosis.
[2019-07-12 17:53] LABS: Hemoglobin 9.7 g/dL (12.0-16.0); Mean Corpuscular HGB CONC 33.6 g/dL (32.0-36.0); Mean Corpuscular Hemoglobin 32.9 pg (27.0-31.0); Mean Corpuscular Volume 97.7 fL (78.0-98.0); Mean Platelet Volume 8.6 fL (7.4-10.4); Platelet Count 102 thou/uL (130-400); RBC Distribution Width 15.8 % (11.5-14.5); Red Blood Cell (RBC) Count 2.95 mill/uL (4.20-5.40); White Blood Cell (WBC) Count 19.5 thou/uL (4.8-10.8)
--- NOTE | 2019-07-12 18:03 | CT ---
Exam: Head CT without contrast HISTORY: Fall. Trauma. Pain. COMPARISON: none FINDINGS: Hemorrhage: No intraparenchymal hemorrhage or extra-axial hematoma. Brain parenchyma: Cortical walters-white matter differentiation is preserved. No mass effect or midline shift. Basilar cisterns are patent. Ventricular system: Ventricles and sulci are patent and symmetric. Calvarium: Intact. Sinuses and mastoid air cells: Opacification visualized right maxillary sinus. Remaining sinuses and mastoid air cells are adequately aerated. Old left lamina propecia fracture. Opacification the visualized right maxillary sinus. There is emphy sema involving the right orbit with right-sided exophthalmos. IMPRESSION: 1. No intracranial post traumatic sequelae 2. Incompletely evaluated right orbit fracture. Dedicated CT orbit is recommended
--- NOTE | 2019-07-12 18:05 | CT ---
CT OF THE CERVICAL SPINE WITHOUT CONTRAST: 07/12/19 COMPARISON: None. HISTORY: Fall with neck pain. TECHNIQUE: Multiple contiguous axial images were obtained in a CT of the cervical spine without contrast. Sagitt al and coronal reformats were performed. FINDINGS: There are mild to moderate degenerative changes throughout the cervical spine. The vertebral bodies d emonstrate normal height and alignment without fracture or subluxation. No prevertebral soft tissue s welling is seen. The posterior facets are well aligned. Normal alignment of the skull base with the cervical spine is seen. IMPRESSION: No evidence of acute osseous abnormality of the cervical spine. POS: C
[2019-07-12 18:07] LABS: Anisocytosis SLIGHT = 6-15 cells (100X) (0-5/hpf); Band 8 % (5-11); Lymphocytes 4 % (21-51); MDiff Complete? YES; Monocytes 6 % (0-10); Neutrophil 81 % (42-75); Ovalocytes SLIGHT = 2-5 cells (100X) (0-1/hpf); Platelet Morphology Comment Appears Decreased; Polychromasia SLIGHT = 2-3 cells (100X) (0-2/hpf); Reactive Lymphocytes 1 % (0-10); Toxic Granulation SLIGHT; Vacuoles SLIGHT
--- NOTE | 2019-07-12 18:08 | CT ---
Exam: Facial bone CT without contrast HISTORY: Fall. Trauma. Pain FINDINGS: Visualized brain parenchyma is unremarkable Old left lamina propecia fracture. Adequate aeration of the visualized paranasal sinuses, with the ex ception of the right maxillary sinus. Adequate aeration of the mastoid air cells Maxilla and mandible appear to be intact. Both mandibular condyles are appropriately located. Note, t he patient is edentulous. There is a slightly leftward deviated nasal septum, which is intact. There is opacification the right ostiomeatal complex. Left ostiomeatal complex is patent. There is right facial, premaxillary sinus, right periorbital soft tissue swelling and hematoma. There is emphysema in the inferior right extraconal space. There is a right-sided exophthalmos. There is symmetric attenuation the optic nerve and ocular rectus muscle. Intraconal fat is essentially symmetr ic. Bilateral ocular lenses are appropriately located. There is a fracture involving the right orbital floor which is placed by approximately 2 mm. The frac ture fragment measures 1 cm in the medial lateral direction. There does not appear to be herniation of intraorbital contents. Nevertheless, clinical correlation for entrapment is recommended. There is fluid and blood products opacifying the right maxillary sinus. There is anterior maxillary sinus fracture as well as a posterior lateral maxillary sinus wall fracture. Right lamina propecia appears to be intact. Pterygoid plates are intact. Symmetric pterygopalatine fossa. IMPRESSION: 1. Right orbital floor fracture with associated posttraumatic change. Correlate clinically for entrap ment.
[2019-07-12 18:12] LABS: ALT (SGPT) 12 U/L (8-55); AST (SGOT) 21 U/L (5-34); Albumin 3.1 g/dL (3.4-4.8); Alkaline Phosphatase 98 U/L (40-110); Anion Gap 12 mmol/L (10-20); BUN (Urea Nitrogen) 20 mg/dL (9.8-20.1); Bilirubin, Total 0.3 mg/dL (0.2-1.2); Calc. Creatinine Clearance 0 mL/min (70-130); Calcium 8.1 mg/dL (7.8-10.44); Carbon Dioxide 24 mmol/L (23-31); Chloride 100 mmol/L (98-107); Estimated GFR-MDRD 63; Globulin 2.4 g/dL (2.4-3.5); Glucose 92 mg/dL (83-110); Potassium 4.3 mmol/L (3.5-5.1); Protein, Total 5.5 g/dL (6.0-8.3); Sodium 132 mmol/L (136-145)
[2019-07-12 21:37] LABS: Troponin I 0.053 ng/mL (< 0.028)
[2019-07-12 23:50] VITALS: BMI 17.0
[2019-07-13] MEDS ORDERED: Zolpidem Tartrate 5 MG TAB PO PRN (07:48)
[2019-07-13] MEDS ORDERED: Bisacodyl 10 MG SUPP PR PRN (07:48)
[2019-07-13] MEDS ORDERED: Cepastat Lozenges 1 LOZ PO PRN (07:48)
[2019-07-13] MEDS ORDERED: HumaLOG 300 UNITS/3 ML VIAL SC PRN ×2 (07:48)
[2019-07-13] MEDS ORDERED: Dextrose 5% in Water 1,000 ML IV PRN (07:48)
[2019-07-13] MEDS ORDERED: hydrALAZINE 20 MG/ML VIAL SLOW IVP PRN (07:48)
[2019-07-13] MEDS ORDERED: Senokot S 8.6-50 MG TAB PO PRN (07:48)
[2019-07-13] MEDS ORDERED: Dextrose 50% Abboject 50 ML SYRINGE SLOW IVP PRN (07:48)
[2019-07-13] MEDS ORDERED: Ondansetron PF 4 MG/2 ML Vial IVP PRN (07:48)
[2019-07-13] MEDS ORDERED: Artificial Tears 18 DROP/0.9 ML EA EYE PRN (07:48)
[2019-07-13] MEDS ORDERED: Diabetic Tussin 200 MG/10 ML UDCUP PO PRN (07:48)
[2019-07-13] MEDS ORDERED: Loratadine 10 MG TAB PO PRN (07:48)
[2019-07-13] MEDS ORDERED: Calcium Carbonate 500 MG ChewTAB PO PRN (07:48)
[2019-07-13] MEDS ORDERED: Ondansetron ODT 4 MG TAB PO PRN (07:48)
[2019-07-13] MEDS ORDERED: Sodium Chloride 0.65% Nasal 44 ML BOT EA NARE PRN (07:48)
[2019-07-13] MEDS ORDERED: Acetaminophen 325 MG TAB PO PRN (07:48)
[2019-07-13] MEDS ORDERED: Loperamide HCl 2 MG CAP PO PRN (07:48)
[2019-07-13] MEDS ORDERED: LIPASE PO SCH (08:00)
[2019-07-13] MEDS ORDERED: AMYLASE PO SCH (08:00)
[2019-07-13] MEDS ORDERED: PROTEASE PO SCH (08:00)
[2019-07-13] MEDS: Cyanocobalamin (Vitamin B-12) 1,000 MCG TAB PO SCH (08:58)
[2019-07-13] MEDS: Amitriptyline HCl 25 MG TAB PO SCH (08:59)
[2019-07-13] MEDS: Famotidine 20 MG TAB PO SCH ×2 (08:59→20:48)
[2019-07-13] MEDS: Amlodipine 5 MG TAB PO SCH (08:59)
[2019-07-13] MEDS: Potassium Chloride 10 MEQ TAB PO SCH ×3 (08:59→20:48)
[2019-07-13] MEDS ORDERED: DRONABINOL 5 MG PO SCH (09:00)
[2019-07-13] MEDS ORDERED: Dronabinol 2.5 MG CAP PO SCH (09:00)
[2019-07-13] MEDS ORDERED: Pancrelipase DR 12000 1 CAP PO SCH (09:00)
[2019-07-13] MEDS ORDERED: Non-Formulary Item 1 EACH (Cyanocobalamin (Vitamin B-12) [Vitamin B12] 2,500 MCG) PO SCH (09:00)
[2019-07-13 10:52] LABS: Bacteria/HPF 3+ HPF (None Seen); Bilirubin Negative (Negative); Blood, Urine 1+ (Negative); Clarity Clear (Clear); Glucose, Urine (Dipstick) Normal (Negative); Leukocyte 250 Leu/uL (Negative); Nitrite Negative (Negative); Protein, Urine (Dipstick) Negative (Neg-Trace); RBC/HPF 0-3 HPF (0-3); Transitional Epithelial 0-3 HPF (None Seen); Urobilinogen Normal mg/dL (Less than 2)
[2019-07-13] MEDS: Pancrelipase DR 12000 1 CAP PO SCH ×2 (12:39→16:55)
[2019-07-13] MEDS: Sodium Chloride 0.9% 1,000 ML IV SCH (12:39)
--- NOTE | 2019-07-13 13:08 | PDOC.HOSPP ---
- Subjective Encounter Date: 07/13/19 Encounter Time: 07:00 Subjective: Patient seen and examined. No new complaints. No overnight events pt denies dizziness, denies eye pain - Objective Vital Signs & Weight: Vital Signs (12 hours) Temp Pulse Resp BP BP BP BP 07/13/19 11:25 98.4 F 92 12 81/54 L 74/55 L 115/71 07/13/19 08:59 99 07/13/19 07:37 98.6 F 99 18 112/79 07/13/19 03:01 98.4 F 88 16 114/71 100/60 142/80 H Pulse Ox 07/13/19 11:25 100 07/13/19 08:59 07/13/19 07:37 100 07/13/19 03:01 96 Weight Weight 108 lb 12.8 oz I&O: 07/12/19 07/13/19 07/14/19 06:59 06:59 06:59 Intake Total 240 Output Total 600 Balance -360 Result Diagrams: 07/12/19 17:43 07/12/19 17:43 Additional Labs: Accuchecks 07/13/19 07/13/19 10:36 06:12 POC Glucose 130 H 82 Radiology Reviewed by me: Yes (reviewed all radiology report) EKG Reviewed by me: Yes Hospitalist ROS - Review of Systems Constitutional: denies: fever, chills, sweats, weakness, malaise, other Eyes: reports: eyelid inflammation. denies: pain, vision change, conjunctivae inflammation, redness, other ENT: denies: ear pain, ear discharge, nose pain, nose discharge, nose congestion , mouth pain, mouth swelling, throat pain, throat swelling, other Respiratory: denies: cough, dry, shortness of breath, hemoptysis, SOB with excertion, pleuritic pain, sputum, wheezing, other Cardiovascular: denies: chest pain, palpitations, orthopnea, paroxysmal noc. dyspnea, edema, light headedness, other Gastrointestinal: denies: nausea, vomiting, abdominal pain, diarrhea, constipation, melena, hematochezia, other Genitourinary: denies: dysuria, frequency, incontinence, hematuria, retention, other Musculoskeletal: denies: neck pain, shoulder pain, arm pain, back pain, hand pain, leg pain, foot pain, other Skin: denies: rash, lesions, connie, bruising, other - Medication Medications: Active Medications Generic Name Dose Route Start Last Admin Trade Name Freq PRN Reason Stop Dose Admin Amitriptyline HCl 25 mg 07/13/19 09:00 07/13/19 08:59 Elavil PO 25 mg QAM MAC Administration Amlodipine Besylate 5 mg 07/13/19 09:00 07/13/19 08:59 Norvasc PO 5 mg DAILY MAC Administration Lipase/Protease/Amylase 1 cap 07/13/19 12:00 07/13/19 12:[address] [place] [id number] PO 1 cap TID-WM MAC Administration Cyanocobalamin 2,500 mcg 07/13/19 09:00 07/13/19 08:58 Vitamin B-12 PO 2,500 mcg DAILY MAC Administration Dronabinol 5 mg 07/13/19 09:00 07/13/19 10:05 Marinol PO 5 mg DAILY MAC Administration Famotidine 20 mg 07/13/19 09:00 07/13/19 08:59 Pepcid PO 20 mg BID MAC Administration Sodium Chloride 1,000 mls @ 75 mls/hr 07/13/19 12:00 07/13/19 12:39 Normal Saline 0.9% IV 1,000 mls .[id number] MAC Administration Potassium Chloride 10 meq 07/13/19 09:00 07/13/19 08:59 Klor-Con 10 PO 10 meq TID MAC Administration Sodium Chloride 10 ml 07/13/19 09:00 07/13/19 08:59 Flush - Normal Saline IVF 10 ml Q12HR MAC Administration - Exam General Appearance: NAD, awake alert Eye - other findings: right eye rachoon eye, swelling ENT: normocephalic atraumatic, no oropharyngeal lesions Neck: supple, symmetric, no JVD, no thyromegaly Heart: RRR, no murmur, no gallops, no rubs Respiratory: CTAB, no wheezes, no rales, no ronchi Gastrointestinal: soft, non-tender, non-distended, normal bowel sounds Extremities: no cyanosis, no clubbing, no edema Skin: normal turgor, no lesions, no rashes Neurological: no weakness, no focal deficits Musculoskeletal: normal tone, normal strength Psychiatric: normal affect, normal behavior Hosp A/P (1) UTI (urinary tract infection) Status: Acute Qualifiers: Urinary tract infection type: acute cystitis Hematuria presence: without hematuria Qualified Code(s): N30.00 - Acute cystitis without hematuria (2) Leucocytosis Code(s): D72.829 - ELEVATED WHITE BLOOD CELL COUNT, UNSPECIFIED Status: Acute Qualifiers: Leukocytosis type: unspecified Qualified Code(s): D72.829 - Elevated white blood cell count, unspecified (3) Fall Code(s): W19.XXXA - UNSPECIFIED FALL, INITIAL ENCOUNTER Status: Acute Qualifiers: Encounter type: initial encounter Qualified Code(s): W19.XXXA - Unspecified fall, initial encounter (4) Orbital floor fracture Code(s): S02.30XA - FRACTURE OF ORBITAL FLOOR, UNSPECIFIED SIDE, INIT Status: Acute Qualifiers: Encounter type: initial encounter Fracture type: closed Laterality: right Qualified Code(s): S02.31XA - Fracture of orbital floor, right side, initial encounter for closed fracture (5) Orthostatic hypertension Code(s): I10 - ESSENTIAL (PRIMARY) HYPERTENSION Status: Acute (6) Pancreatic cancer Status: Chronic (7) CAD (coronary artery disease) Code(s): I25.10 - ATHSCL HEART DISEASE OF [place] CORONARY ARTERY W/O ANG PCTRS Status: Chronic Qualifiers: Coronary Disease-Associated Artery/Lesion type: [place] artery [place] vs. transplanted heart: [place] heart (8) Dyslipidemia Code(s): E78.5 - HYPERLIPIDEMIA, UNSPECIFIED Status: Chronic (9) HTN (hypertension) Code(s): I10 - ESSENTIAL (PRIMARY) HYPERTENSION Status: Chronic Qualifiers: Hypertension type: essential hypertension (10) Pacemaker Code(s): Z95.0 - PRESENCE OF CARDIAC PACEMAKER Status: Chronic (11) Anemia, normocytic normochromic Code(s): D64.9 - ANEMIA, UNSPECIFIED Status: Chronic (12) Elevated troponin Code(s): R74.8 - ABNORMAL LEVELS OF OTHER SERUM ENZYMES Status: Chronic - Plan old records reviewed/req, plan discussed w/ family, continue antibiotics, PT/OT 07/13/19- start IVF 0.9 NS at 75 ml per hour for orthostasis PT for fall ophthalmology evaluation for orbital fracture send urine culture and start rocephin repeat labs tomorrow
[2019-07-13] MEDS ORDERED: cefTRIAXone\\ROCEPHIN 1 GM in Sodium Chloride 0.9% 100 ML IVPB SCH (14:00)
--- NOTE | 2019-07-13 16:14 | HP ---
PRIMARY CARE PHYSICIAN: [facility] Call admission. REASON FOR ADMISSION: 1. Mechanical fall. 2. Orbital fracture. 3. Orthostatic hypotension. HISTORY OF PRESENT ILLNESS: A 79-year-old female with history of pancreatic cancer, who had mechanical fall at home. Subsequently, she had face injury. After falling, she hit her head and face. In the emergency room, she was found with orbital fracture. The patient also had orthostatic vitals positive. The patient is feeling weak and that is why we decided to keep this patient in hospital. She does not have any urinary tract infection symptoms, but her urinalysis consistent with UTI. The patient clinically appears dehydrated. REVIEW OF SYSTEMS: CONSTITUTIONAL: Negative for weight loss or gain, ability to conduct usual activities. SKIN: Negative for rash, itching. EYES: Negative for double vision, pain. ENT/MOUTH: Negative for nose bleeding, neck stiffness, pain, tenderness. CARDIOVASCULAR: Negative for palpitations, dyspnea on exertion, orthopnea. RESPIRATORY: Negative for shortness of breath, wheezing, cough, hemoptysis, fever or night sweats. GASTROINTESTINAL: Negative for poor appetite, abdominal pain, heartburn, nausea, vomiting, constipation, or diarrhea. GENITOURINARY: Negative for urgency, frequency, dysuria, nocturia. MUSCULOSKELETAL: Negative for pain, swelling. NEUROLOGIC/PSYCHIATRIC: Negative for anxiety, depression. ALLERGY/IMMUNOLOGIC: Negative for skin rash, bleeding tendency. Please see my HPI for pertinent positives and negatives. All other review of systems reviewed and negative except as mentioned in HPI. PAST MEDICAL HISTORY: Diabetes type 2, coronary artery disease, pacemaker, history of atrial arrhythmia, dyslipidemia, hypertension, and pancreatic cancer, on chemotherapy. PAST SURGICAL HISTORY: Hysterectomy and MediPort placement. PAST PSYCHIATRIC HISTORY: Anxiety and depression. SOCIAL HISTORY: The patient lives at home. She chews tobacco. She denies any alcohol abuse. She denies any other illicit drug abuse. FAMILY HISTORY: No strong family history of premature coronary artery disease, stroke, or cancer. ALLERGIES: MORPHINE. CURRENT HOME MEDICATIONS: 1. Lipitor 80 mg daily. 2. Creon one tablet 3 times daily. 3. Glipizide 5 mg daily. 4. Amitriptyline 25 mg p.o. at bedtime. 5. Eliquis 5 mg b.i.d. 6. Zetia 10 mg daily. 7. Remeron 30 mg p.o. at bedtime. 8. Tylenol No. 3 p.r.n. 9. Potassium chloride 10 mEq three times daily. 10. B12 5000 mcg daily. 11. Vitamin D3 2000 units p.o. daily. EMERGENCY ROOM COURSE: The patient received fentanyl. PHYSICAL EXAMINATION: VITAL SIGNS: On arrival, blood pressure 130/78, pulse 67, respiratory rate 18, temperature 98.6, and saturation 98% on room air. Weight 48 kg. GENERAL: The patient is currently alert and awake. No obvious acute distress. HEENT: Head; normocephalic, atraumatic. Eyes; raccoon eye on the right side. ENT; oropharynx within normal limits. Dry mucous membranes. NECK: Supple. No JVD. LUNGS: Clear to auscultation without any rhonchi or rales. CARDIAC: S1 and S2. Regular without any murmur. ABDOMEN: Soft and benign. No suprapubic tenderness. BACK: Unremarkable. No CVA tenderness. EXTREMITIES: Upper extremity; passive movement of all joints are normal. Lower extremity; edema noted, both lower extremity. SKIN: No skin rash. HEMATOLOGICAL SYSTEM: No lymphadenopathy. NEUROLOGIC: Nonfocal examination. SIGNIFICANT LABORATORY DATA: CBC; WBC 19.5, hemoglobin 9.7, and platelet 102 with bandemia. BMP; sodium 132, potassium 4.3, chloride 100, carbon dioxide 24, BUN 20, creatinine 1.02, and calcium 8.1. LFT; AST 21, ALT 12, alkaline phosphatase 98, and albumin 3.1. Troponin 0.057. Urinalysis consistent with urinary tract infection. CT brain negative for any acute intracranial process. CT cervical spine negative for any fracture or dislocation. CT facial bone consistent with orbital fracture. Chest x-ray unremarkable. ASSESSMENT: 1. Mechanical fall. 2. Orbital floor fracture. 3. Leukocytosis. 4. Orthostatic hypotension. 5. Urinary tract infection. 6. Demand ischemia of myocardium. 7. Pancreatic cancer, on chemotherapy. 8. Chronic normocytic normochromic anemia. 9. Coronary artery disease. 10. Hypertension. 11. Dyslipidemia. 12. Pacemaker. PLAN: The patient will be observed to telemetry floor. The patient will be given IV fluid with NS at 75 mL/hour. The patient will repeat physical therapy evaluation. We will send urine culture and start Rocephin 1 g q.24 hours. We will repeat labs tomorrow. We will restart her home medication while in hospital. We will follow up on urine culture results. Diabetic diet will be given. We will hold on her glipizide because of relatively low blood sugar. DVT prophylaxis, SCD boots. GI prophylaxis, Pepcid 20 mg p.o. b.i.d. CODE STATUS: The patient is full code. The patient's daughter is surrogate decision maker. DISPOSITION PLAN: 24 to 48 hours. Plan of care discussed with the patient's family member at bedside. Job ID: [id number]
--- NOTE | 2019-07-13 19:33 | CON ---
DATE OF CONSULTATION: 07/13/2019 TIME OF SERVICE: 1:00 p.m. REASON FOR CONSULTATION: Orbital fracture. HISTORY OF PRESENT ILLNESS: The patient is a 79-year-old woman, who had a syncopal episode, fell and struck her right face on the floor, resulting in orbital fractures. On examination, the left eye is slightly proptotic with 360-degree conjunctival hemorrhages. Visual acuity with +2 lens is J-10 for the right eye and J-5 for the left eye. The right pupil is slightly smaller than the left, and both are briskly reactive without an afferent pupillary defect. Darryl-Pen intra-ocular pressure is 26 and 27 mmHg for the right eye and 12 and 10 mmHg for the left eye. The eyes are aligned with full range of motion. The pupils were dilated and on fundus exam, there was no retinal pathology. The right optic nerve cup/disk ratio is about 0.6 and the left is about 0.5. There is no retinal edema or hemorrhages. IMPRESSION: 1. Orbital fracture without ocular muscle entrapment. 2. Subconjunctival hemorrhage and orbital hemorrhage. PLAN: This simply needs time and no further ocular treatment. Job ID: [id number]
[2019-07-13] MEDS ORDERED: Ezetimibe 10 MG TAB PO SCH (21:00)
[2019-07-13] MEDS ORDERED: Non-Formulary Item 1 EACH (Atorvastatin Calcium [Atorvastatin Calcium] 80 MG) PO SCH (21:00)
[2019-07-13] MEDS ORDERED: Mirtazapine 30 MG TAB PO SCH (21:00)
[2019-07-13] MEDS ORDERED: Atorvastatin Calcium 40 MG TAB PO SCH (21:00)
[2019-07-14] MEDS: Sodium Chloride 0.9% 1,000 ML IV SCH (01:48)
[2019-07-14 05:50] LABS: #Monocytes 0.1 thou/uL (0.11-0.59); #Neutrophils 7.1 thou/uL (1.40-6.50); %Basophils 0.1 % (0.0-1.0); %Eosinophils 0.2 % (0.0-10.0); %Lymphocytes 11.7 % (21.0-51.0); %Monocytes 1.5 % (0.0-10.0); %Neutrophils 86.5 % (42.0-75.0); Mean Corpuscular HGB CONC 33.1 g/dL (32.0-36.0); Mean Corpuscular Hemoglobin 32.7 pg (27.0-31.0); Mean Corpuscular Volume 98.9 fL (78.0-98.0); Mean Platelet Volume 8.5 fL (7.4-10.4); Platelet Count 96 thou/uL (130-400); RBC Distribution Width 15.6 % (11.5-14.5); Red Blood Cell (RBC) Count 3.04 mill/uL (4.20-5.40); White Blood Cell (WBC) Count 8.2 thou/uL (4.8-10.8)
[2019-07-14 06:05] LABS: ALT (SGPT) 23 U/L (8-55); AST (SGOT) 37 U/L (5-34); Albumin 2.7 g/dL (3.4-4.8); Alkaline Phosphatase 83 U/L (40-110); Anion Gap 12 mmol/L (10-20); BUN (Urea Nitrogen) 15 mg/dL (9.8-20.1); Bilirubin, Total 0.3 mg/dL (0.2-1.2); Calc. Creatinine Clearance 45 mL/min (70-130); Calcium 7.6 mg/dL (7.8-10.44); Carbon Dioxide 23 mmol/L (23-31); Chloride 107 mmol/L (98-107); Estimated GFR-MDRD 84; Globulin 2.5 g/dL (2.4-3.5); Glucose 115 mg/dL (83-110); Protein, Total 5.2 g/dL (6.0-8.3); Sodium 138 mmol/L (136-145)
[2019-07-14 07:44] VITALS: BP 118/77; TEMP 98.5
[2019-07-14] MEDS: Amlodipine 5 MG TAB PO SCH (09:11)
[2019-07-14] MEDS: Amitriptyline HCl 25 MG TAB PO SCH (09:11)
[2019-07-14] MEDS: Pancrelipase DR 12000 1 CAP PO SCH (09:11)
[2019-07-14] MEDS: Cyanocobalamin (Vitamin B-12) 1,000 MCG TAB PO SCH (09:12)
[2019-07-14] MEDS: Famotidine 20 MG TAB PO SCH (09:12)
[2019-07-14] MEDS: Potassium Chloride 10 MEQ TAB PO SCH (09:13)
--- NOTE | 2019-07-14 10:10 | PDOC.HOSPP ---
- Subjective Encounter Date: 07/14/19 Encounter Time: 07:30 Subjective: Patient seen and examined. No new complaints. No overnight events - Objective Vital Signs & Weight: Vital Signs (12 hours) Temp Pulse Resp BP BP BP BP 07/14/19 07:34 98.5 F 82 16 118/77 99/64 166/89 H 07/14/19 04:21 98.4 F 88 16 130/86 Pulse Ox 07/14/19 07:34 100 07/14/19 04:21 98 Weight Admit Weight 108 lb 12.8 oz Weight 108 lb 12.8 oz I&O: 07/13/19 07/14/19 07/15/19 06:59 06:59 06:59 Intake Total 240 3557.5 480 Output Total 600 901 Balance -360 2656.5 480 Result Diagrams: 07/14/19 05:18 07/14/19 05:18 Additional Labs: Accuchecks 07/13/19 07/13/19 07/13/19 20:53 16:28 10:36 POC Glucose 197 H 157 H 130 H EKG Reviewed by me: Yes Hospitalist ROS - Review of Systems ENT: denies: ear pain, ear discharge, nose pain, nose discharge, nose congestion , mouth pain, mouth swelling, throat pain, throat swelling, other Respiratory: denies: cough, dry, shortness of breath, hemoptysis, SOB with excertion, pleuritic pain, sputum, wheezing, other Cardiovascular: denies: chest pain, palpitations, orthopnea, paroxysmal noc. dyspnea, edema, light headedness, other Gastrointestinal: denies: nausea, vomiting, abdominal pain, diarrhea, constipation, melena, hematochezia, other Genitourinary: denies: dysuria, frequency, incontinence, hematuria, retention, other Musculoskeletal: denies: neck pain, shoulder pain, arm pain, back pain, hand pain, leg pain, foot pain, other Skin: denies: rash, lesions, connie, bruising, other - Medication Medications: Active Medications Generic Name Dose Route Start Last Admin Trade Name Freq PRN Reason Stop Dose Admin Amitriptyline HCl 25 mg 07/13/19 09:00 07/14/19 09:11 Elavil PO 25 mg QAM MAC Administration Amlodipine Besylate 5 mg 07/13/19 09:00 07/14/19 09:11 Norvasc PO 5 mg DAILY MAC Administration Lipase/Protease/Amylase 1 cap 07/13/19 12:00 07/14/19 09:[address] [place] [address] [id number] PO 1 cap TID-WM MAC Administration Atorvastatin Calcium 80 mg 07/13/19 21:00 07/13/19 20:48 Lipitor PO 80 mg HS MAC Administration Cyanocobalamin 2,500 mcg 07/13/19 09:00 07/14/19 09:12 Vitamin B-12 PO 2,500 mcg DAILY MAC Administration Dronabinol 5 mg 07/13/19 09:00 07/13/19 10:05 Marinol PO 5 mg DAILY MAC Administration Ezetimibe 10 mg 07/13/19 21:00 07/13/19 20:47 Zetia PO 10 mg HS MAC Administration Famotidine 20 mg 07/13/19 09:00 07/14/19 09:12 Pepcid PO 20 mg BID MAC Administration Sodium Chloride 1,000 mls @ 75 mls/hr 07/13/19 12:00 07/14/19 01:48 Normal Saline 0.9% IV 1,000 mls .[id number] MAC Administration Ceftriaxone Sodium 1 gm/ 100 mls @ 200 mls/hr 07/13/19 14:00 07/13/19 14:41 Sodium Chloride IVPB 100 mls Q24HR MAC Administration Mirtazapine 30 mg 07/13/19 21:00 07/13/19 20:48 Remeron PO 30 mg HS MAC Administration Potassium Chloride 10 meq 07/13/19 09:00 07/14/19 09:13 Klor-Con 10 PO 10 meq TID MAC Administration Sodium Chloride 10 ml 07/13/19 09:00 07/14/19 09:30 Flush - Normal Saline IVF Not Given Q12HR MAC - Exam General Appearance: NAD, awake alert Eye - other findings: right eyelid swelling and h'ge ENT: normocephalic atraumatic Neck: supple, symmetric, no JVD Heart: RRR, no murmur, no gallops, no rubs Respiratory: CTAB, no wheezes, no rales, no ronchi Gastrointestinal: soft, non-tender, non-distended, normal bowel sounds Extremities: no cyanosis, no clubbing, 1+ LE edema Skin: normal turgor, no lesions Neurological: cranial nerve grossly intact, normal sensation to touch Musculoskeletal: normal tone, normal strength Psychiatric: normal affect, normal behavior Hosp A/P (1) UTI (urinary tract infection) Status: Acute Qualifiers: Urinary tract infection type: acute cystitis Hematuria presence: without hematuria Qualified Code(s): N30.00 - Acute cystitis without hematuria (2) Leucocytosis Code(s): D72.829 - ELEVATED WHITE BLOOD CELL COUNT, UNSPECIFIED Status: Acute Qualifiers: Leukocytosis type: unspecified Qualified Code(s): D72.829 - Elevated white blood cell count, unspecified (3) Fall Code(s): W19.XXXA - UNSPECIFIED FALL, INITIAL ENCOUNTER Status: Acute Qualifiers: Encounter type: initial encounter Qualified Code(s): W19.XXXA - Unspecified fall, initial encounter (4) Orbital floor fracture Code(s): S02.30XA - FRACTURE OF ORBITAL FLOOR, UNSPECIFIED SIDE, INIT Status: Acute Qualifiers: Encounter type: initial encounter Fracture type: closed Laterality: right Qualified Code(s): S02.31XA - Fracture of orbital floor, right side, initial encounter for closed fracture (5) Orthostatic hypertension Code(s): I10 - ESSENTIAL (PRIMARY) HYPERTENSION Status: Acute (6) Pancreatic cancer Status: Chronic (7) CAD (coronary artery disease) Code(s): I25.10 - ATHSCL HEART DISEASE OF [place] CORONARY ARTERY W/O ANG PCTRS Status: Chronic Qualifiers: Coronary Disease-Associated Artery/Lesion type: [place] artery [place] vs. transplanted heart: [place] heart (8) Dyslipidemia Code(s): E78.5 - HYPERLIPIDEMIA, UNSPECIFIED Status: Chronic (9) HTN (hypertension) Code(s): I10 - ESSENTIAL (PRIMARY) HYPERTENSION Status: Chronic Qualifiers: Hypertension type: essential hypertension (10) Pacemaker Code(s): Z95.0 - PRESENCE OF CARDIAC PACEMAKER Status: Chronic (11) Anemia, normocytic normochromic Code(s): D64.9 - ANEMIA, UNSPECIFIED Status: Chronic (12) Elevated troponin Code(s): R74.8 - ABNORMAL LEVELS OF OTHER SERUM ENZYMES Status: Chronic - Plan old records reviewed/req, plan discussed w/ family, continue antibiotics 07/13/19- start IVF 0.9 NS at 75 ml per hour for orthostasis PT for fall ophthalmology evaluation for orbital fracture send urine culture and start rocephin repeat labs tomorrow 07/14- change to po cipro, discharge today, medication reviewed as above, symptomatic treatment.
--- NOTE | 2019-07-14 11:25 | DIS ---
DATE OF ADMISSION: 07/12/2019 DATE OF DISCHARGE: 07/14/2019 PRIMARY CARE PHYSICIAN: [facility] Call admission. DISCHARGE DISPOSITION: Home. PRIMARY DISCHARGE DIAGNOSES: 1. Orthostatic hypotension. 2. Mechanical fall. 3. Orbital fracture. 4. Urinary tract infection. SECONDARY DISCHARGE DIAGNOSES: Pancreatic cancer, pacemaker, hypertension, normocytic normochromic anemia, coronary artery disease, dyslipidemia. PRIMARY PROCEDURE/OPERATION: None. RADIOLOGICAL INVESTIGATION: Brain CT negative. CT cervical spine negative. Facial bone CT scan showed orbital fracture. Chest x-ray normal. SIGNIFICANT LABORATORY DATA: Hemoglobin 10.0. Creatinine 0.80. Urinalysis consistent with UTI. Urine culture grew gram-negative percy. DISCHARGE MEDICATIONS: 1. Cipro 250 mg p.o. b.i.d. for five days. 2. Amitriptyline 25 mg p.o. daily. 3. Lipitor 80 mg p.o. at bedtime. 4. Vitamin B12, 2500 mcg daily. 5. Dronabinol 5 mg daily. 6. Zetia 10 mg at bedtime. 7. Glipizide 2.[address] one capsule t.i.d. 9. Remeron 30 mg p.o. at bedtime. 10. Potassium chloride 10 mEq t.i.d. 11. Amlodipine 5 mg p.o. daily. CONTRAINDICATION: None. CODE STATUS: Full code. INPATIENT KEY SANDER: Dr. Aaron Betancourt, planning engineer. TEST RESULTS PENDING ON DISCHARGE: Urine culture result. ALLERGIES: MORPHINE. DISCHARGE PLAN: Posthospital, the patient will follow up with primary care physician in 1 week. HOSPITAL COURSE: A 79-year-old female with pancreatic cancer, on chemotherapy, who was brought to emergency room for mechanical fall, and subsequently, she was found with orbital fracture after radiological investigation. She was found with urinary tract infection. She was positive for orthostatic hypotension and that is why she was given IV fluid and she was given Rocephin while in hospital. On discharge, we changed to Cipro. Her urine culture is positive for gram-negative percy. Sensitivities pending. The patient's primary care physician will follow up on culture and sensitivity result. The patient will continue all her previous medication. The patient is medically stable for discharge. Machine Rebuilder evaluated this patient while in hospital and they cleared her for discharge as well. The patient is seen and examined at bedside today. Please see my progress note from today for further detail. Job ID: [id number]
== END 2019-07-14 10:30 | disposition home or self-care (01) ==
LOC: ERS 17:12 → 2SW 21:13
PROVIDERS: ADMIT Hospitalist; ATTEND Hospitalist
DX: I95.1 Orthostatic hypotension (principal); S02.31XA Fracture of orbital floor, right side, initial encounter for closed fracture; N30.00 Acute cystitis without hematuria; C25.9 Malignant neoplasm of pancreas, unspecified; E11.9 Type 2 diabetes mellitus without complications; I25.10 Atherosclerotic heart disease of native coronary artery without angina pectoris; E78.5 Hyperlipidemia, unspecified; I10 Essential (primary) hypertension; F41.9 Anxiety disorder, unspecified; F32.9 Major depressive disorder, single episode, unspecified; F17.220 Nicotine dependence, chewing tobacco, uncomplicated; I24.8 Other forms of acute ischemic heart disease; D64.9 Anemia, unspecified; D72.829 Elevated white blood cell count, unspecified; R74.8 Abnormal levels of other serum enzymes; H11.31 Conjunctival hemorrhage, right eye; H05.231 Hemorrhage of right orbit; Z79.84 Long term (current) use of oral hypoglycemic drugs; Z79.899 Other long term (current) drug therapy; Z88.5 Allergy status to narcotic agent; Z95.0 Presence of cardiac pacemaker; W19.XXXA Unspecified fall, initial encounter
CPT/HCPCS: 36415; 36416; 70450; 70486; 71045; 72125; 80053; 81001; 82553; 84484; 85025; 87086; 93005; 96361; 96365; 96374; 96375; G0378; J0696; J3010; J3490; Q0167

== ENCOUNTER 2019-07-14 10:35 | Day surgery (SDC) | payer MEDICARE, MEDICAID ==
[2019-07-14] MEDS ORDERED: Sodium Chloride 0.9% 20 ML ONE (10:51)
[2019-07-14] MEDS ORDERED: PEGFILGRASTIM-JMDB 6 MG/0.6 ML SYRINGE SQ SCH (12:15)
== END 2019-07-14 13:11 | disposition home or self-care (01) ==
LOC: ONC/OP 10:35
PROVIDERS: ATTEND Internal Medicine Hematology & Oncology
DX: Z51.11 Encounter for antineoplastic chemotherapy (principal); C25.1 Malignant neoplasm of body of pancreas; Z88.5 Allergy status to narcotic agent
CPT/HCPCS: 96372; 96523; J1642; Q5108

== ENCOUNTER 2019-07-25 09:08 | Day surgery (SDC) | payer MEDICARE, MEDICAID ==
[~2019-07-25 09:08] MED LIST changes: -DEXTROSE 5% IVPB SCH; -OXALIPLATIN IVPB SCH; -WATER IVPB SCH
[2019-07-25] MEDS ORDERED: Sodium Chloride 0.9% 20 ML ONE (09:13)
[2019-07-25 09:49] VITALS: BP 165/92; TEMP 98.5
== END 2019-07-25 13:13 | disposition home or self-care (01) ==
LOC: ONC/OP 09:08
PROVIDERS: ATTEND Internal Medicine Hematology & Oncology
DX: Z51.11 Encounter for antineoplastic chemotherapy (principal); C25.1 Malignant neoplasm of body of pancreas; Z88.5 Allergy status to narcotic agent
CPT/HCPCS: 96367; 96375; 96413; 96416; J0461; J0640; J1100; J1453; J2469; J3490; J7050; J9206

== ENCOUNTER 2019-07-28 08:36 | Day surgery (SDC) | payer MEDICARE, MEDICAID ==
[2019-07-28] MEDS ORDERED: PEGFILGRASTIM-JMDB 6 MG/0.6 ML SYRINGE ONE (08:39)
[2019-07-28 08:47] VITALS: BP 110/62; TEMP 98.4
== END 2019-07-28 08:48 | disposition home or self-care (01) ==
LOC: ONC/OP 08:36
PROVIDERS: ATTEND Internal Medicine Hematology & Oncology
DX: Z51.11 Encounter for antineoplastic chemotherapy (principal); C25.1 Malignant neoplasm of body of pancreas; Z88.5 Allergy status to narcotic agent
CPT/HCPCS: 96372; Q5108

== ENCOUNTER 2019-07-28 10:35 | Day surgery (SDC) | payer MEDICARE, MEDICAID ==
[2019-07-28] MEDS ORDERED: diphenhydrAMINE 25 MG CAP ONE (11:44)
[2019-07-28] MEDS ORDERED: Acetaminophen 500 MG TAB ONE (11:44)
== END 2019-07-28 15:10 | disposition home or self-care (01) ==
LOC: ONC/OP 10:35
PROVIDERS: ATTEND Internal Medicine Hematology & Oncology
DX: D64.9 Anemia, unspecified (principal); D69.6 Thrombocytopenia, unspecified; Z88.5 Allergy status to narcotic agent
CPT/HCPCS: 36430; 86850; 86900; 86901; P9016; Q0163

== ENCOUNTER 2019-08-08 08:58 | Day surgery (SDC) | payer MEDICARE, MEDICAID ==
[2019-08-08] MEDS ORDERED: Sodium Chloride 0.9% 20 ML ONE (09:07)
[2019-08-08 09:40] VITALS: BP 170/96; TEMP 98.5
== END 2019-08-08 13:55 | disposition home or self-care (01) ==
LOC: ONC/OP 08:58
PROVIDERS: ATTEND Internal Medicine Hematology & Oncology
DX: Z51.11 Encounter for antineoplastic chemotherapy (principal); C25.1 Malignant neoplasm of body of pancreas; Z88.5 Allergy status to narcotic agent
CPT/HCPCS: 36415; 80053; 82248; 83615; 84100; 84550; 96367; 96375; 96413; 96416; J0461; J0640; J1100; J1453; J2469; J3490; J7050; J9206

== ENCOUNTER 2019-08-22 09:23 | Day surgery (SDC) | payer MEDICARE, MEDICAID ==
[2019-08-22] MEDS ORDERED: Sodium Chloride 0.9% 30 ML ONE (10:01)
== END 2019-08-22 14:34 | disposition home or self-care (01) ==
LOC: ONC/OP 09:23
PROVIDERS: ATTEND Internal Medicine Hematology & Oncology
DX: Z51.11 Encounter for antineoplastic chemotherapy (principal); C25.1 Malignant neoplasm of body of pancreas; Z88.5 Allergy status to narcotic agent
CPT/HCPCS: 36415; 80053; 82248; 83615; 84100; 84550; 96367; 96375; 96413; 96416; J0461; J0640; J1100; J1453; J2469; J3490; J7050; J9206

== ENCOUNTER 2019-08-25 09:24 | Day surgery (SDC) | payer MEDICARE, MEDICAID ==
[~2019-08-25 09:24] MED LIST changes: -Atropine Sulfate 0.25 MG in Sodium Chloride 0.9% 50 ML IVPB SCH; -Dexamethasone Sod Phosphate 20 MG in Sodium Chloride 0.9% 50 ML IVPB SCH; -IRINOTECAN IVPB SCH; -LEUCOVORIN CALCIUM IVPB SCH; +PEGFILGRASTIM-JMDB 6 MG/0.6 ML SYRINGE ONE; +PEGFILGRASTIM-JMDB 6 MG/0.6 ML SYRINGE SQ SCH; -Palonosetron HCl 0.25 MG in Sodium Chloride 0.9% 50 ML IVPB SCH; -SODIUM CHLORIDE 0.9% IVPB SCH
[2019-08-25 09:29] VITALS: BP 124/75; TEMP 98.4
== END 2019-08-25 09:29 | disposition home or self-care (01) ==
LOC: ONC/OP 09:24
PROVIDERS: ATTEND Internal Medicine Hematology & Oncology
DX: Z51.11 Encounter for antineoplastic chemotherapy (principal); C25.1 Malignant neoplasm of body of pancreas; Z88.5 Allergy status to narcotic agent
CPT/HCPCS: 96372; Q5108

== ENCOUNTER 2019-09-05 09:34 | Day surgery (SDC) | payer MEDICARE, MEDICAID ==
[~2019-09-05 09:34] MED LIST changes: +Atropine Sulfate 0.25 MG in Sodium Chloride 0.9% 50 ML IVPB SCH; +Dexamethasone Sod Phosphate 20 MG in Sodium Chloride 0.9% 50 ML IVPB SCH; +IRINOTECAN IVPB SCH; +LEUCOVORIN CALCIUM IVPB SCH; -PEGFILGRASTIM-JMDB 6 MG/0.6 ML SYRINGE ONE; -PEGFILGRASTIM-JMDB 6 MG/0.6 ML SYRINGE SQ SCH; +Palonosetron HCl 0.25 MG in Sodium Chloride 0.9% 50 ML IVPB SCH; +SODIUM CHLORIDE 0.9% IVPB SCH
[2019-09-05] MEDS ORDERED: Sodium Chloride 0.9% 20 ML ONE (10:01)
[2019-09-05 10:48] VITALS: BP 173/94; TEMP 98.1
== END 2019-09-05 13:20 | disposition home or self-care (01) ==
LOC: ONC/OP 09:34
PROVIDERS: ATTEND Internal Medicine Hematology & Oncology
DX: Z51.11 Encounter for antineoplastic chemotherapy (principal); C25.1 Malignant neoplasm of body of pancreas; Z88.5 Allergy status to narcotic agent
CPT/HCPCS: 36415; 80053; 82248; 83615; 84100; 84550; 86301; 96367; 96375; 96413; 96416; J0461; J0640; J1100; J1453; J2469; J3490; J7050; J9206

== ENCOUNTER 2019-09-19 09:18 | Day surgery (SDC) | payer MEDICARE, MEDICAID ==
[2019-09-19] MEDS ORDERED: Sodium Chloride 0.9% 20 ML ONE (09:23)
[2019-09-19 10:19] VITALS: BP 138/74; TEMP 97.8
== END 2019-09-19 14:14 | disposition home or self-care (01) ==
LOC: ONC/OP 09:18
PROVIDERS: ATTEND Internal Medicine Hematology & Oncology
DX: Z51.11 Encounter for antineoplastic chemotherapy (principal); C25.1 Malignant neoplasm of body of pancreas; Z88.5 Allergy status to narcotic agent
CPT/HCPCS: 36415; 80053; 82248; 83615; 84100; 84550; 96366; 96375; 96413; J0461; J0640; J1100; J1453; J2469; J3490; J7050; J9206

== ENCOUNTER → 2019-09-22 | Day surgery (SDC) | payer MEDICARE, MEDICAID ==
[~2019-09-22] MED LIST changes: -Atropine Sulfate 0.25 MG in Sodium Chloride 0.9% 50 ML IVPB SCH; -Dexamethasone Sod Phosphate 20 MG in Sodium Chloride 0.9% 50 ML IVPB SCH; -IRINOTECAN IVPB SCH; -LEUCOVORIN CALCIUM IVPB SCH; +PEGFILGRASTIM-JMDB 6 MG/0.6 ML SYRINGE ONE; -Palonosetron HCl 0.25 MG in Sodium Chloride 0.9% 50 ML IVPB SCH; -SODIUM CHLORIDE 0.9% IVPB SCH
[2019-09-22 09:57] VITALS: BP 124/78; TEMP 98.2
== END ==
LOC: ONC/OP 09:22
PROVIDERS: ATTEND Internal Medicine Hematology & Oncology
DX: Z51.11 Encounter for antineoplastic chemotherapy (principal); C25.1 Malignant neoplasm of body of pancreas; Z88.5 Allergy status to narcotic agent
CPT/HCPCS: 96372; Q5108

== ENCOUNTER 2019-09-23 11:24 | Day surgery (SDC) | payer MEDICARE, MEDICAID ==
[2019-09-23] MEDS ORDERED: diphenhydrAMINE 25 MG CAP PO SCH (11:45)
[2019-09-23] MEDS ORDERED: Acetaminophen 500 MG TAB PO SCH (11:45)
[2019-09-23 16:54] VITALS: BP 157/98; TEMP 98.6
[2019-09-23 17:34] LABS: Band 17 % (5-11); Hypochromia SLIGHT = 6-15 cells (100X) (0-5/hpf); Lymphocytes 2 % (21-51); MDiff Complete? YES; Mean Corpuscular HGB CONC 32.6 g/dL (32.0-36.0); Mean Corpuscular Hemoglobin 30.6 pg (27.0-31.0); Mean Corpuscular Volume 93.8 fL (78.0-98.0); Neutrophil 79 % (42-75); Platelet Count 98 thou/uL (130-400); Platelet Morphology Comment Appears Decreased; Polychromasia SLIGHT = 2-3 cells (100X) (0-2/hpf); Reactive Lymphocytes 2 % (0-10); Red Blood Cell (RBC) Count 3.29 mill/uL (4.20-5.40); Schistocytes SLIGHT = 2-5 cells (100X) (0-1/hpf); Target Cells SLIGHT = 2-5 cells (100X) (0-1/hpf); Tear Drops SLIGHT = 2-5 cells (100X) (0-1/hpf); White Blood Cell (WBC) Count 16.1 thou/uL (4.8-10.8)
== END 2019-09-23 17:02 | disposition home or self-care (01) ==
LOC: ONC/OP 11:24
PROVIDERS: ATTEND Internal Medicine Hematology & Oncology
PROC: 30233N1 Transfusion of Nonautologous Red Blood Cells into Peripheral Vein, Percutaneous Approach (ICD-10-PCS; principal; 2019-09-23)
PROC: 30233R1 Transfusion of Nonautologous Platelets into Peripheral Vein, Percutaneous Approach (ICD-10-PCS; 2019-09-23)
DX: D64.9 Anemia, unspecified (principal); D69.6 Thrombocytopenia, unspecified; Z88.5 Allergy status to narcotic agent
CPT/HCPCS: 36430; 36591; 85025; 86850; 86900; 86901; P9016; Q0163

== ENCOUNTER 2019-09-29 09:01 | Outpatient (CLI) | payer MEDICARE, MEDICAID ==
--- NOTE | 2019-09-29 11:35 | CT ---
CT abdomen chest with IV contrast CT abdomen and pelvis with IV and oral contrast HISTORY: Pancreatic cancer. Restaging. COMPARISON: 07/05/2019. FINDINGS: Contrast is seen throughout the length of the esophagus. Tiny subpleural nodule within the anterolateral aspect of the right upper lobe is stable and in an area of parenchymal scarring that has improved slightly. There is additional linear scarring at each posterior lung base. Small amount of pericardial fluid and pleural fluid again demonstrated. Free fluid within the abdomen has increased slightly. Dilation of the biliary system on the left liver lobe has progressed since the previous exam. Tiny co rtical calcification the superior pole left kidney and well-circumscribed hyperdense left renal masses are again demonstrated. There has been slight gradual enlargement of the hyperdense mass at th e medial aspect of the left kidney, now measuring up to 6.4 cm oblique diameter on the axial images were it was 4.8 cm in 2016. The 1.5 cm exophytic cyst along the lateral cortex of the left kidney is stable. Dilatation of the distal pancreatic duct is unchanged in appearance. The cysts associated with the pa ncreas, 2.1 cm and 0.9 cm greatest diameters, appears stable. The soft tissue density mass is difficult to delineate given the stranding throughout the abdominal fat and subcutaneous tissue in th e intra-abdominal fluid. It is estimated to be stable at 3.1 cm. Prominent calcification throughout the arterial structures. Necrotic changes of each femoral head aga in demonstrated. IMPRESSION: Stable CT appearance of the pancreatic mass, cysts, and ductal dilatation of the tail. Interval worsening of biliary ductal dilatation of the left liver lobe. Exact point and cause of obst ruction is not evident. Slight interval increase in amount of ascites. Pleural fluid, pericardial fluid, and diffuse subcutan eous and intra-abdominal edema are otherwise stable. Slow progressive enlargement of the well-circumscribed hyperdense mass associated with the left kidne y. The homogeneity of the internal content still suggests that this is likely a hyperdense cyst related to protein/old blood component. Atherosclerosis. Gastroesophageal reflux.
== END 2019-09-29 09:02 | disposition home or self-care (01) ==
LOC: CT 09:01
PROVIDERS: ATTEND Internal Medicine Hematology & Oncology
DX: C25.9 Malignant neoplasm of pancreas, unspecified (principal); K86.2 Cyst of pancreas; K86.89 Other specified diseases of pancreas; R60.0 Localized edema; I70.90 Unspecified atherosclerosis; K21.9 Gastro-esophageal reflux disease without esophagitis
CPT/HCPCS: 71260; 74177

== ENCOUNTER 2019-10-03 09:46 | Day surgery (SDC) | payer MEDICARE, MEDICAID ==
[~2019-10-03 09:46] MED LIST changes: +Atropine Sulfate 0.25 MG in Sodium Chloride 0.9% 50 ML IVPB SCH; +Dexamethasone Sod Phosphate 20 MG in Sodium Chloride 0.9% 50 ML IVPB SCH; +IRINOTECAN IVPB SCH; +LEUCOVORIN CALCIUM IVPB SCH; -PEGFILGRASTIM-JMDB 6 MG/0.6 ML SYRINGE ONE; +Palonosetron HCl 0.25 MG in Sodium Chloride 0.9% 50 ML IVPB SCH; +SODIUM CHLORIDE 0.9% IVPB SCH
[2019-10-03] MEDS ORDERED: Sodium Chloride 0.9% 30 ML ONE (09:58)
[2019-10-03 10:32] VITALS: BP 135/80; TEMP 99.1
== END 2019-10-03 13:59 | disposition home or self-care (01) ==
LOC: ONC/OP 09:46
PROVIDERS: ATTEND Internal Medicine Hematology & Oncology
DX: Z51.11 Encounter for antineoplastic chemotherapy (principal); C25.1 Malignant neoplasm of body of pancreas; Z88.5 Allergy status to narcotic agent
CPT/HCPCS: 36415; 80053; 82248; 83615; 84100; 84550; 96367; 96375; 96413; 96416; J0461; J0640; J1100; J2469; J7050; J9206

== ENCOUNTER 2019-10-06 09:20 | Day surgery (SDC) | payer MEDICARE, MEDICAID ==
[~2019-10-06 09:20] MED LIST changes: -Atropine Sulfate 0.25 MG in Sodium Chloride 0.9% 50 ML IVPB SCH; -Dexamethasone Sod Phosphate 20 MG in Sodium Chloride 0.9% 50 ML IVPB SCH; -IRINOTECAN IVPB SCH; -LEUCOVORIN CALCIUM IVPB SCH; +PEGFILGRASTIM-JMDB 6 MG/0.6 ML SYRINGE SQ SCH; -Palonosetron HCl 0.25 MG in Sodium Chloride 0.9% 50 ML IVPB SCH; -SODIUM CHLORIDE 0.9% IVPB SCH
== END 2019-10-06 10:14 | disposition home or self-care (01) ==
LOC: ONC/OP 09:20
PROVIDERS: ATTEND Internal Medicine Hematology & Oncology
DX: C25.1 Malignant neoplasm of body of pancreas (principal); Z88.5 Allergy status to narcotic agent
CPT/HCPCS: 96372; Q5108

== ENCOUNTER → 2019-10-17 | Day surgery (SDC) | payer MEDICARE, MEDICAID ==
[~2019-10-17] MED LIST changes: +Atropine Sulfate 0.25 MG in Sodium Chloride 0.9% 50 ML IVPB SCH; +Dexamethasone Sod Phosphate 20 MG in Sodium Chloride 0.9% 50 ML IVPB SCH; +IRINOTECAN IVPB SCH; +LEUCOVORIN CALCIUM IVPB SCH; -PEGFILGRASTIM-JMDB 6 MG/0.6 ML SYRINGE SQ SCH; +Palonosetron HCl 0.25 MG in Sodium Chloride 0.9% 50 ML IVPB SCH; +SODIUM CHLORIDE 0.9% IVPB SCH
[2019-10-17 12:28] VITALS: BP 162/96; TEMP 97.7
== END ==
LOC: ONC/OP 11:19
PROVIDERS: ATTEND Internal Medicine Hematology & Oncology
DX: Z51.11 Encounter for antineoplastic chemotherapy (principal); C25.1 Malignant neoplasm of body of pancreas; Z88.5 Allergy status to narcotic agent
CPT/HCPCS: 36415; 80053; 82248; 83615; 84100; 84550; 86301; 96366; 96375; 96413; 96416; J0461; J0640; J1100; J1453; J2469; J3490; J7050; J9206

== ENCOUNTER → 2019-10-20 | Day surgery (SDC) | payer MEDICARE, MEDICAID ==
[~2019-10-20] MED LIST changes: -Atropine Sulfate 0.25 MG in Sodium Chloride 0.9% 50 ML IVPB SCH; -Dexamethasone Sod Phosphate 20 MG in Sodium Chloride 0.9% 50 ML IVPB SCH; -IRINOTECAN IVPB SCH; -LEUCOVORIN CALCIUM IVPB SCH; +PEGFILGRASTIM-JMDB 6 MG/0.6 ML SYRINGE ONE; -Palonosetron HCl 0.25 MG in Sodium Chloride 0.9% 50 ML IVPB SCH; -SODIUM CHLORIDE 0.9% IVPB SCH
[2019-10-20 09:50] VITALS: BP 108/69; TEMP 97.8
== END ==
LOC: ONC/OP 09:31
PROVIDERS: ATTEND Internal Medicine Hematology & Oncology
DX: Z51.11 Encounter for antineoplastic chemotherapy (principal); C25.1 Malignant neoplasm of body of pancreas; Z88.5 Allergy status to narcotic agent
CPT/HCPCS: 96372; Q5108

== ENCOUNTER 2019-10-25 09:08 | Emergency (ER) | payer MEDICARE, MEDICAID ==
[2019-10-25 10:00] LABS: Hemoglobin 9.4 g/dL (12.0-16.0); Mean Corpuscular HGB CONC 32.8 g/dL (32.0-36.0); Mean Corpuscular Volume 97.6 fL (78.0-98.0); Mean Platelet Volume 11.2 fL (7.4-10.4); Platelet Count 70 thou/uL (130-400); RBC Distribution Width 16.1 % (11.5-14.5); Red Blood Cell (RBC) Count 2.93 mill/uL (4.20-5.40); White Blood Cell (WBC) Count 2.3 thou/uL (4.8-10.8)
--- NOTE | 2019-10-25 10:07 | RAD ---
PORTABLE CHEST 1 VIEW: Date: 10/25/2019 Time: 0916 hours HISTORY: Weakness. FINDINGS/IMPRESSION: Comparison made with exam of 07/12/2019. Left-sided pacemaker device and right-sided Port-A-Cath remain in place. The heart size is borderline . There are mild atelectatic changes at the lung bases. No lobar consolidation or pneumothoraces seen . There is no evidence of yulia pulmonary edema. POS: OFF
[2019-10-25] MEDS ORDERED: cefTRIAXone\\ROCEPHIN 2 GM VIAL ONE (10:13)
[2019-10-25 10:21] LABS: Band 17 % (5-11); Hypochromia SLIGHT = 6-15 cells (100X) (0-5/hpf); Lymphocytes 25 % (21-51); MDiff Complete? YES; Monocytes 11 % (0-10); Myelocyte 2 % (0-0); Neutrophil 39 % (42-75); Reactive Lymphocytes 6 % (0-10); Schistocytes SLIGHT = 2-5 cells (100X) (0-1/hpf); Tear Drops SLIGHT = 2-5 cells (100X) (0-1/hpf)
[2019-10-25 10:22] LABS: ALT (SGPT) 23 U/L (8-55); AST (SGOT) 36 U/L (5-34); Alkaline Phosphatase 172 U/L (40-110); Anion Gap 16 mmol/L (10-20); BUN (Urea Nitrogen) 14 mg/dL (9.8-20.1); Bilirubin, Total 0.4 mg/dL (0.2-1.2); Calc. Creatinine Clearance 0 mL/min (70-130); Calcium 6.8 mg/dL (7.8-10.44); Carbon Dioxide 30 mmol/L (23-31); Chloride 97 mmol/L (98-107); Estimated GFR-MDRD 56; Glucose 94 mg/dL (83-110); Sodium 139 mmol/L (136-145)
[2019-10-25 11:09] LABS: Bilirubin Negative (Negative); Blood, Urine Negative (Negative); Clarity Clear (Clear); Glucose, Urine (Dipstick) Normal (Negative); Leukocyte Negative Leu/uL (Negative); Nitrite Negative (Negative); Protein, Urine (Dipstick) Negative (Neg-Trace); Urobilinogen Normal mg/dL (Less than 2)
== END 2019-10-25 12:33 | disposition home or self-care (01) ==
LOC: ERS 09:08
DX: R53.1 Weakness (principal); C80.1 Malignant (primary) neoplasm, unspecified; C78.89 Secondary malignant neoplasm of other digestive organs; E11.9 Type 2 diabetes mellitus without complications; I25.10 Atherosclerotic heart disease of native coronary artery without angina pectoris; I48.91 Unspecified atrial fibrillation; E78.5 Hyperlipidemia, unspecified; E78.00 Pure hypercholesterolemia, unspecified; I10 Essential (primary) hypertension; F41.9 Anxiety disorder, unspecified; F32.9 Major depressive disorder, single episode, unspecified; Z79.899 Other long term (current) drug therapy; Z79.84 Long term (current) use of oral hypoglycemic drugs
CPT/HCPCS: 36415; 51701; 71045; 80053; 81003; 83605; 84484; 85025; 87040; 87086; 93005; 96365; A4353; J0696

== ENCOUNTER 2019-10-31 08:51 | Day surgery (SDC) | payer MEDICARE, MEDICAID ==
[~2019-10-31 08:51] MED LIST changes: +Atropine Sulfate 0.25 MG in Sodium Chloride 0.9% 50 ML IVPB SCH; +Dexamethasone Sod Phosphate 20 MG in Sodium Chloride 0.9% 50 ML IVPB SCH; +IRINOTECAN IVPB SCH; +LEUCOVORIN CALCIUM IVPB SCH; -PEGFILGRASTIM-JMDB 6 MG/0.6 ML SYRINGE ONE; +Palonosetron HCl 0.25 MG in Sodium Chloride 0.9% 50 ML IVPB SCH; +SODIUM CHLORIDE 0.9% IVPB SCH
[2019-10-31] MEDS ORDERED: Sodium Chloride 0.9% 20 ML ONE (08:54)
[2019-10-31] MEDS ORDERED: Sodium Chloride 0.9% 200 ML ONE (09:26)
[2019-10-31 09:48] VITALS: BP 151/78; TEMP 98.1
== END 2019-10-31 14:20 | disposition home or self-care (01) ==
LOC: ONC/OP 08:51
PROVIDERS: ATTEND Internal Medicine Hematology & Oncology
DX: Z51.11 Encounter for antineoplastic chemotherapy (principal); C25.1 Malignant neoplasm of body of pancreas; Z88.5 Allergy status to narcotic agent
CPT/HCPCS: 36415; 80053; 82248; 83615; 84100; 84550; 96366; 96375; 96413; 96416; J0461; J0640; J1100; J1453; J2469; J3490; J7050; J9206

== ENCOUNTER 2019-11-03 09:56 | Day surgery (SDC) | payer MEDICARE, MEDICAID ==
[~2019-11-03 09:56] MED LIST changes: -Atropine Sulfate 0.25 MG in Sodium Chloride 0.9% 50 ML IVPB SCH; -Dexamethasone Sod Phosphate 20 MG in Sodium Chloride 0.9% 50 ML IVPB SCH; -IRINOTECAN IVPB SCH; -LEUCOVORIN CALCIUM IVPB SCH; +PEGFILGRASTIM-JMDB 6 MG/0.6 ML SYRINGE SQ SCH; -Palonosetron HCl 0.25 MG in Sodium Chloride 0.9% 50 ML IVPB SCH; -SODIUM CHLORIDE 0.9% IVPB SCH
[2019-11-03 10:32] VITALS: BP 117/67; TEMP 98
== END 2019-11-03 10:32 | disposition home or self-care (01) ==
LOC: ONC/OP 09:56
PROVIDERS: ATTEND Internal Medicine Hematology & Oncology
DX: Z51.11 Encounter for antineoplastic chemotherapy (principal); C25.1 Malignant neoplasm of body of pancreas; Z88.5 Allergy status to narcotic agent
CPT/HCPCS: 96372; Q5108